=== PATIENT | male | born 1950 | race Caucasian/White ===

== ENCOUNTER 2019-08-23 01:41 | Outpatient (CLI) | payer MEDICARE, SELFPAY ==
[2019-08-23 19:16] LABS: SARS-CoV-2 RNA PCR Negative
== END 2019-08-23 01:42 | disposition home or self-care (01) ==
LOC: ANHCOVIDDT 01:43
PROVIDERS: PCP Internal Medicine; Visit Provider Internal Medicine Gastroenterology
DX: Z01.812 Encounter for preprocedural laboratory examination (principal); Z11.59 Encounter for screening for other viral diseases
CPT/HCPCS: 87635; C9803; U0003

== ENCOUNTER 2019-08-25 02:02 | Day surgery (SDC) | payer MEDICARE, SELFPAY ==
[2019-08-16 12:51] VITALS: BMI 23.9
[2019-08-25 08:52] VITALS: BP 126/55; PULSE 72; RESP 18; TEMP 36.1; O2SAT 96
[2019-08-25] MEDS: LACTATED RINGERS 1,000 ML 150 ML IV CONT (09:08)
--- NOTE | 2019-08-25 09:11 | P.CONGI_ITS ---
Assessment and Plan Assessment and plan (1) Family history of colon cancer in father: Code(s): Z80.0 - Family history of malignant neoplasm of digestive organs Status: Acute Assessment and Plan: Patient's father had colon cancer. For this reason follow-up colonoscopy advised at 5 year intervals. (2) History of colon polyps: Code(s): Z86.010 - Personal history of colonic polyps Status: Acute Assessment and Plan: Patient had colon polyps by previous colonoscopy 5 years ago in [place]. Plan is for screening colonoscopy today at 5 year intervals in the future. (3) Arteriosclerotic heart disease (ASHD): Code(s): I25.10 - Atherosclerotic heart disease of [place] coronary artery without angina pectoris Status: Acute GI Consult Note Consult date/time: 08/25/19 09:11 HPI: Jose Angel Suazo is a 69 year old male seen in evaluation at the request of Dr Parekh. Patient presents for screening colonoscopy. Patient's family history is significant that his father had colon cancer. Patient himself is had colon polyps most recently 2014 in the [facility] [place]. Patient states that his current weight appetite bowel movements are normal. He denies abdominal pain. He denies any blood in his stools. Past medical history is significant for atherosclerotic heart disease. He has a history of peripheral vascular disease on Plavix. Review of Systems Review of Systems: All systems reviewed & are unremarkable except as noted in HPI and below Meds Home Medications and Allergies Home Medications Medication Instructions Recorded Confirmed Type amlodipine 5 mg PO DAILY 08/16/19 08/25/19 History ascorbate calcium (vitamin C) 500 mg PO DAILY 08/16/19 08/25/19 History aspirin 81 mg PO DAILY 08/16/19 08/25/19 History atorvastatin 80 mg PO DAILY 08/16/19 08/25/19 History carvedilol 12.5 mg PO BID 08/16/19 08/25/19 History clopidogrel 75 mg PO DAILY 08/16/19 08/25/19 History famotidine 20 mg PO DAILY 08/16/19 08/25/19 History furosemide 20 mg PO DAILY 08/16/19 08/16/19 History losartan 25 mg PO DAILY 08/16/19 08/25/19 History ywgnkqrpwycj-xdjr-qcrai acid 1 tablet PO DAILY 08/16/19 08/25/19 History [Centrum Complete] Allergies Allergy/AdvReac Type Severity Reaction Status Date / Time No Known Allergies Allergy Verified 08/25/19 08:43 Vital Signs Vital Signs - 24 hr 08/25/19 08:52 Temperature 97.0 F L Pulse Rate 72 Respiratory Rate 18 Blood Pressure 126/55 L Pulse Oximetry 96 Exam Narrative: Exam Narrative: Physical exam reveals patient to be alert. Vital signs stable. HEENT exam unremarkable. Lungs are clear to auscultation and percussion. Heart is without murmur or extra sounds. Abdominal exam bowel so unds are present soft nontender with no organomegaly. Digital external rectal exam normal.
--- NOTE | 2019-08-25 09:35 | WPDANESEPPF ---
Anes - Initial Pre Proc Eval Procedure: Operation Date: 08/25/19 09:30 Proposed Procedures p Screening Colonoscopy - Erick Benson MD Date/Time: 08/25/19 09:35 Surgeon: Erick Benson MD Pre Op Diagnosis: HX COLON POLYPS, FAMILYL HX COLON CA Patient Data Age: 69 Gender: M Height: 6 ft Weight: 78 kg Last Vital Signs Temp 97.0 F L 08/25/19 08:52 Pulse 72 08/25/19 08:52 Resp 18 08/25/19 08:52 BP 126/55 L 08/25/19 08:52 Pulse Ox 96 08/25/19 08:52 Allergies Allergy/AdvReac Type Severity Reaction Status Date / Time No Known Allergies Allergy Verified 08/25/19 08:43 Home Medications Medication Instructions Recorded Confirmed Type amlodipine 5 mg PO DAILY 08/16/19 08/25/19 History ascorbate calcium (vitamin C) 500 mg PO DAILY 08/16/19 08/25/19 History aspirin 81 mg PO DAILY 08/16/19 08/25/19 History atorvastatin 80 mg PO DAILY 08/16/19 08/25/19 History carvedilol 12.5 mg PO BID 08/16/19 08/25/19 History clopidogrel 75 mg PO DAILY 08/16/19 08/25/19 History famotidine 20 mg PO DAILY 08/16/19 08/25/19 History furosemide 20 mg PO DAILY 08/16/19 08/16/19 History losartan 25 mg PO DAILY 08/16/19 08/25/19 History kqpdmvnleegc-gsjj-hdzyp acid 1 tablet PO DAILY 08/16/19 08/25/19 History [Centrum Complete] Patient hx anesthesia problems: none Family hx anesthesia problems: none [facility] Past Medical History Medical History (Updated 08/25/19 @ 09:38 by Chet Miller MD) Arteriosclerotic heart disease (ASHD) Congestive heart failure (CHF) GERD (gastroesophageal reflux disease) Hyperlipidemia Hypertension Anes - Eval Final PreProcedure Day of Procedure 08/25/19 09:35 Patient weight: normal Heart: regular rate and rhythm Lungs: clear to auscultation Airway: Mallampati scale class II Neurological: alert and oriented Last oral intake: >/= 8 hours ASA classification: III Emergent: no Anesthetic plan: proceed Anesthesia type and monitoring: general GIVS and standard monitoring Informed Consent: The patient's anesthetic plan and its attendant risks and benefits were discussed with the patient/family/POA. Questions were solicited and answers provided to the satisfaction of the patient/family/POA.
[2019-08-25 10:04] VITALS: BP 102/54; PULSE 70; RESP 17; O2SAT 98
[2019-08-25 10:14] VITALS: BP 115/63; PULSE 61; RESP 20; O2SAT 96
[2019-08-25 10:24] VITALS: BP 119/68; PULSE 64; RESP 22; O2SAT 99
== END 2019-08-25 10:40 | disposition home or self-care (01) ==
PROVIDERS: PCP Internal Medicine; Visit Provider Internal Medicine Gastroenterology
PROC: 0DJD8ZZ Inspection of Lower Intestinal Tract, Via Natural or Artificial Opening Endoscopic (ICD-10-PCS; CPT 45378; principal; 2019-08-25 09:30)
DX: Z12.11 Encounter for screening for malignant neoplasm of colon (principal); K57.30 Diverticulosis of large intestine without perforation or abscess without bleeding; K64.8 Other hemorrhoids; Z86.010 Personal history of colon polyps; Z80.0 Family history of malignant neoplasm of digestive organs; I25.10 Atherosclerotic heart disease of native coronary artery without angina pectoris; Z79.82 Long term (current) use of aspirin; Z79.02 Long term (current) use of antithrombotics/antiplatelets
CPT/HCPCS: G0105; J2704; J7120

== ENCOUNTER 2024-09-13 01:54 | Day surgery (SDC) | payer MEDICARE, SELFPAY ==
[2024-08-29 10:05] VITALS: BMI 25.1
--- NOTE | 2024-08-29 10:29 | PC.NURSE ---
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 Pt requested 2 day prep. I sent him Dr. Nevarez's 2 day prep.
--- NOTE | 2024-08-29 10:30 | PC.NURSE ---
Spoke with patient regarding medication Plavix. Patient verbalizes understanding that the last dose is to be taken on 09/07/24 and the Endoscopist will instruct them when to restart after the procedure.
--- OUTSIDE RECORDS SUMMARY | 2024-09-13 01:57 | XMS_ITS | Clinical Summary ---
Author Organization [facility] Address [facility] [place] [address] Care Team Providers Care Cost Coordinator Name Role Phone Bruno Parekh MD Primary Care Provider [phone] Allergies No known active allergies Medications ASPIRIN 81 OR Take 81 mg by mouth. Active vitamin C 500 MG tablet Active multivitamin tablet Active carvedilol 12.5 MG tablet Take 12.5 mg by mouth 2 (two) times daily. Active amLODIPine 2.5 MG tablet Take 5 mg by mouth daily. Active rosuvastatin 40 MG tablet Take 40 mg by mouth nightly at bedtime. Active losartan 25 MG tablet Take 25 mg by mouth daily. Active famotidine 20 MG tablet Take 20 mg by mouth daily. Active clopidogrel 75 MG tablet Take 75 mg by mouth daily. Active ciclopirox 8 % solution Apply topically nightly at bedtime. Apply over nail and surrounding skin. Apply daily over previous coat. After seven (7) days, may remove with alcohol and continue cycle. Active nitroglycerin 0.4 MG/HR Place 1 patch onto the skin daily. Active nitroglycerin 0.[address] 0.4 mg under the tongue every 5 (five) minutes as needed for Chest Pain. Active Active Problems Problem Noted Date Diagnosed Date Microhematuria 02/19/2021 Benign prostatic hyperplasia with urinary obstru ction 02/19/2021 Immunizations Immunization Administration Dates Next Due MODERNA COVID-19 (12+) MRNA, LNP-S, PF, 100 MCG/ 0.5 ML DOSE 04/30/2020,04/02/2020 Family History Medical History Relation Comments Cancer Father Pancreatic Cance r Colon Cancer Father Epilepsy Mother Relation Status Comments Father Mother Social History Tobacco Use Types Packs/Day Years Used Date Smoking Tobacco: Former Cigarettes Q uit: 05/31/2018 Smokeless Tobacco: Never Tobacco Cessation:Counseling Given: No Alcohol Use Standard Drinks/Week Comments Not Currently 3.3 (1 standard drink = 0.6 oz p ure alcohol) ocassionally PHQ-2 Answer Date Recorded PHQ-2 Score - If the patient scores above 3, please move on to questions 3-9 0 02/18/2021 Sex and Gender Information Value Date Recorded Sex Assigned at Not on file Legal Sex Male 5:39 PM CDT Gender Identity Not on file Sexual Orientation Not on file Last Filed Vital Signs Vital Sign Reading Time Taken Comments Blood Pressure 120/72 02/18/2021 10:44 AM SYNTHETIC FILAMENT EXTRUDER Pulse 74 02/18/2021 10:19 AM SYNTHETIC FILAMENT EXTRUDER Temperature 35.8 C (96.5 F) 02/18/2021 10:19 AM SYNTHETIC FILAMENT EXTRUDER Respiratory Rate - - Oxygen Saturation 98% 02/18/2021 10: 19 AM SYNTHETIC FILAMENT EXTRUDER Room Air Inhaled Oxygen Concentration - - Weight 86.5 kg (190 lb 12.8 oz) 022 10:19 AM SYNTHETIC FILAMENT EXTRUDER Height 182.9 cm (6') 02/18/2021 10:19 AM SYNTHET[employer] FILAMENT EXTRUDER Body Mass Index 25.88 02/18/2021 10:19 AM SYNTHETIC FILAMENT EXTRUDER Plan of Treatment Health Maintenance Due Date Last Done Comments Colorectal Cancer Screening Colonoscopy (10 Years) 1950 Hepatitis C 1970 Annual Medicare Wellness Visit 2017 COVID-19 Vaccine (2023-2 5 season) 2023 12/07/2020, 04/30/2020, 04/02/2020 RSV Immunization or 60+ Years (1 - 1-dose 75+ series) 2027 DTaP, Tdap and Td Vaccines ( 2 - Td or Tdap) 02/21/2028 02/20/2018 Pneumococcal Vaccine: 50+ Years Completed 08/11/2018, 08/03/2017 Zoster Vaccines Completed 12/10/2018, 08/11/2018 Meningococcal B Vaccine Aged Out No l onger eligible based on patient's age to complete this topic Meningococcal Vaccine Aged Out No jami darling eligible based on patient's age to complete this topic RSV Immunizations Under 20 Months Aged Out No longer eligible b ased on patient's age to complete this topic Procedures Procedure Name Priority Date/Time Associated Diagnosis Comments COLONOSCOPY Routine SYNTHETIC FILAMENT EXTRUDER from Last 3 Months or Most Recently Relevant to Health Maintenance Results * Colonoscopy ( SYNTHETIC FILAMENT EXTRUDER) Narrative [employer] TO EPIC CONVERSION - SYNTHETIC FILAMENT EXTRUDER Documented hx of procedure Procedure Note Akbar Whyte MD - 12/20/2017 Documented hx of procedure Generic Conversion Md WHYTE GI PROCEDURE ORDERABLES Final Result [employer] TO EPIC CONVERSION from Last 3 Months or Most Recently Relevant to Health Maintenance Insurance [employer] MEDICARE [facility] Care Teams Cost Coordinator Relationship Specialty Start Date End Date Bruno Parekh MD [address] [place] [address] [place] [id number] PCP - General INTERNAL MEDICINE 04/21/18
--- OUTSIDE RECORDS SUMMARY | 2024-09-13 01:57 | XMS_ITS | Encounter Summary ---
Author Organization [facility] Address [address] [place] [address] Care Team Providers Care Manager Psychiatry Name Role Phone Akbar Peterson MD Primary Care Provider Unavailable Bruno Parekh MD Primary Care Provider Encounter Details Date Type Department Care Team (Late st Contact Info) Description 12/20/2016 Abstract [place] [address] Akbar Peterson MD Social History Tobacco Use Types Packs/Day Years Used Date Smoking Tobacco: Never Assessed Sex and Gender Information Value Date Recorded Sex Assigned at Not on file Legal Sex Male 5:39 PM CDT Gender Identity Not on file Sexual Orientation Not on file documented as of this encounter Plan of Treatment Not on file documented as of this encounter Visit Diagnoses Not on filedocumented in this encounter Care Teams Manager Psychiatry Relationship Specialty Start Date End Date Akbar Peterson MD PCP - General 02/08/15 Bruno Parekh MD [address] [place] [address] PCP - General INTERNAL MEDICINE 04/21/18 documented as of this encounter
--- OUTSIDE RECORDS SUMMARY | 2024-09-13 01:57 | XMS_ITS | Data Portability ---
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 Cholesterol 133, triglycerides 78, HDL 53, LDL 65, glucose 104, BUN 49, creatinine 2.68, EGFR 25, sodium 142, potassium 5.1, chloride 109, carbon dioxide 19, calcium 8.7, protein 5.7, albumin 3.7, globulin 2.0, bilirubin 0.3, alkaline phosphate 76, AST 16, ALT 12, WBC 8.1, hemoglobin 10.8, hematocrit 33.0, platelets 202. Labs completed on 04/23/2023 WBC 6.8, Hgb (11.2), Platelets 200, glucose (112), BUN (50), creatinine (2.40), sodium 141, potassium 5.0, chloride (108), Co2 20, Calcium 9.1, protein 6.2, Albumin 4.1, bilirubin 0.2, ALk phos 83, AST 15, ALT 17, cholesterol 149, Trig 76, HDL 52, LDL 82 Laboratories performed on 02/23/2023 BUN 40 creatinine 2.15 previous BUN and creatinine 3 months earlier were 53 and 2.48, , sodium 141 potassium 4.5, chloride 109, bicarbonate 19, calcium 8.9, protein 5.8, albumin 3.8, bilirubin 0.3, alkaline phosphatase 93, AST 20, ALT 27. glucose 102 ECG done on 10/29/2023 shows normal sinus rhythm with a rate of 77 beats per minute with borderline first-degree AV block and poor R-wave progression. compared to previous EKG done on 06/18/2022, poor R-wave progression is now seen maybe due to change in lead positioning., ASSESSMENT Coronary artery disease with 60-70% mid right coronary artery and 60-70% left circumflex artery/obtuse marginal branch stenosis with 40-50% calcified stenosis in the proximal LAD and cardiac catheterization on 06/15/2018 with a treadmill Myoview stress test performed on 02/22/2021 with no scintigraphic evidence of ischemia or infarction with normal LVEF of 56%, exercising regularly and asymptomatic Nonsustained ventricular tachycardia when his LVEF was 30%, now with LVEF of 50-55% on his last 2 echocardiograms the 1 done in May of 2020 and again on 12/17/2020, with most recent Holter monitor done on January 22, 2021 for 48 hours showing no ventricular tachycardia and less than 1% PVC burden. Pure hypercholesterolemia on rosuvastatin 40 mg daily with LDL at goal, having some leg cramps despite being on coenzyme Q10 Hypertension - controlled Moderate to severe left ventricular systolic dysfunction with an ejection fraction of 30%, he has coronary disease but not obstructive or causing ischemia to explain his LV dysfunction, improved from 30% up to 45-50% by echocardiography done on 10/08/2018 and 50-55% by echocardiogram done on 06/05/2020 and 56% by Myoview stress test done on 02/22/2021 and 45-50% by echocardiogram done on 06/05/2020 with echocardiogram done on 2022 showing an ejection fraction 50-55%. Mild left ventricular hypertrophy by echocardiogram done on 06/05/2020 Diastolic dysfunction grade 1 by echocardiogram done on 06/05/2020 Moderate mitral regurgitation by echocardiogram done on 06/15/2018, confirmed by transesophageal echocardiogram, now improved to trace accompanied by improvement in his LVEF on echocardiogram done on 10/08/2018 and still trace on echocardiogram done on 06/05/2020 since his left ventricular systolic function has improved and his left ventricular cavity size is normalized likely normalizing the size of the mitral valve annulus causing coaptation of the valve Dyspnea occurring intermittently although he is able to walk 45 minutes without any problem with a treadmill Myoview stress test with no scintigraphic evidence of myocardial ischemia on 02/22/2021, improved with changing from losartan to entresto. Palpitations, none of late Edema resolved with reducing his amlodipine down from 5 to 2.5 mg daily and has not required p.r.n. Lasix since dropping the dose of the amlodipine 50 pack year history has been free of smoking is since just before hospitalization in May of 2018 with the assistance of Chantix now discontinued COPD, noted on chest x-ray Reformed smoker quit about 2018 has not smoked Gastroesophageal reflux disease Anemia - no longer on Epogen, anemia of chronic disease from his chronic kidney disease. Iron studies in November of 2021 were normal, managed by Dr. Salvador of the Nephrology Service Chronic kidney disease, creatinine running between 2.0 and 2.[address] Salvador of the nephrology service, Entresto approved by Nephrology MILAGRO-inhibitor cough Erectile dysfunction, no significant improvement with sildenafil or Cialis. Seen urologist who recommended an implant or a pump or injections. He decided against all of them as urologist suggested injections but he declined.. Plan- I recommend healthy diet which is low in fat, low cholesterol and low in sodium. since he is having some myalgias despite taking coenzyme Q10 on on rosuvastatin 40 mg daily asked him to reduce it to 20 mg daily to see if this improves his cramps. If his LDL becomes no longer at goal then we can consider adding Zetia later. Since he is just taking 1.25 mg or half of a 2.5 mg amlodipine tablet in his blood pressure is well-controlled I will go ahead and have him stop it I asked him to monitor his blood pressures at home and call me if there 130/85 mm Hg and if it is above that we will consider increasing his Entresto if okay with Nephrology.. I asked him to continue Entresto 24/26 mg p.o. twice daily, carvedilol 12.5 mg p.o. b.i.d., aspirin 81 mg daily, Plavix 75 mg daily, Jardiance 10 mg daily and Lasix p.r.n which he rarely requires and nitroglycerin sublingually. I asked him to return in 3 months time get a fasting lipid profile, complete metabolic profile and a CBC prior to follow-up visit I asked him to return sooner if he has any cardiac issues or problems. CARDIAC TESTING ECHOCARDIOGRAM 12/17/2022 which shows borderline LVH, normal left ventricular systolic function with ejection fraction 50-55% with normal RV cavity size and function aortic valve is mildly sclerotic but not stenotic there were normal right heart pressures and diastolic dysfunction grade 1. ECHOCARDIOGRAM 06/05/2020 which showed mild LVH, normal left ventricular systolic function with an ejection fraction of 50-55% with right atrial pressure of 10-15 mm mercury and diastolic dysfunction grade 1. 10/08/2018 which showed mildly reduced lower limits of normal LVEF of 45-50% by parasternal views apical views were foreshortened. Mild concentric left ventricular hypertrophy, trace mitral regurgitation, compared his previous echocardiogram done on 06/14/2018 LVEF have improved from an LVEF of 30% to an LVEF of 45-50% currently and moderate mitral regurgitation is improved to trace mitral regurgitation on the current study. ECHOCARDIOGRAM Performed on 06/14/2018 Moderate to severe left ventricular systolic dysfunction with an LVEF of 30%There is anteroseptal wall dyskinesis.There is septal wall severe hypokinesis.There is inferior wall severe hypokinesis.There is anterior wall moderate hypokinesis.The left ventricle is mildly dilated.There is borderline concentric left ventricular hypertrophy.The left atrium is mildly dilated.There is moderate mitral regurgitation. TREADMILL MYOVIEW STRESS TEST 02/22/2021 Positive electrocardiographic portion of treadmill Myoview stress test with [address]-segment depressions which normalized within a minute into recovery, making it suspicious for the possibility of a false-positive stress test. No chest pain or chest pressure with exercise. Good exercise tolerance, walking a total of 11 minutes 5 seconds on standard Kennedy protocol, achieving 13.4 METS of exercise, only limited by shortness of breath with exertion. Isolated PACs at rest, which were asymptomatic.. Normal blood pressure with exaggerated blood pressure response to exercise.. Normal chronotropic response to exercise.. No evidence of ischemia of the left ventricle. Small fixed basal inferior wall defect with normal wall motion most likely due to subdiaphragmatic attenuation artifact. Normal left ventricular cavity size, wall motion and calculated left ventricular systolic ejection fraction of 56%. TREADMILL MYOVIEW STRESS TEST 06/16/2018 Normal electrocardiographic portion of a treadmill Myoview stress test, patient walking 10 minutes into standard Kennedy protocol attaining 88% of his age-predicted maximal heart rate with no ischemic EKG changes. No chest pain or chest pressure with exercise. Exercise capacity was limited by shortness of breath and leg fatigue. Isolated premature ventricular contraction noted in early to mid-exercise which was asymptomatic. No other arrhythmias. Borderline elevated blood pressure, appropriate blood pressure response to exercise. Slow rise in his heart rate consistent with a person being physically fit, but it is a completely normal response to exercise for a physically fit individual as he is. No significant perfusion defects. Diaphragmatic attenuation artifact in the inferior wall improves with prone stress imaging. Abnormal left ventricular ejection fraction of 27%. Dilated left ventricle with global hypokinesis. CARDIAC CATHETERIZATION Performed on 06/15/2018 Moderate to severe distal 2-vessel coronary artery disease involving the right coronary artery and left circumflex arteries with moderate disease in the mid left anterior descending, Elevated left ventricular end-diastolic pressure at 13 mmHg. No significant gradient upon pullback across the aortic valve. LV function and wall motion were not assessed since LV angiogram was not performed in light of his creatinine of 1.9. No significant gradient upon pullback across the aortic valve, indicating any significant stenosis of the aortic valve. Normal systemic arterial blood pressure with an aortic pressure of 139/80 mmHg. Mitral regurgitation was not assessed since an LV angiogram was not performed. Not available 10/29/2023 10:58:52 02/04/2024 02/04/2024 Labs completed o n 01/26/2024 WBC 7.9, Hgb 10.6, Platelets 185, Glucose 97, BUN 50, Creatinine 2.65, eGFR 25, Sodium 143, Potassium 4.8, Chloride 109, CO2 22, Calcium 8.6, Calcium 8.6, Protien 5.9, Albumin 3.8, Bilirubin 0.3, Alkphos 81, AST 15, ALT 12, Cholesterol 145, Trig 87, HDL 46, LDL 82 LABS: 10/21/23. Cholesterol 133, triglycerides 78, HDL 53, LDL 65, glucose 104, BUN 49, creatinine 2.68, EGFR 25, sodium 142, potassium 5.1, chloride 109, carbon dioxide 19, calcium 8.7, protein 5.7, albumin 3.7, globulin 2.0, bilirubin 0.3, alkaline phosphate 76, AST 16, ALT 12, WBC 8.1, hemoglobin 10.8, hematocrit 33.0, platelets 202. Labs completed on 04/23/2023 WBC 6.8, Hgb (11.2), Platelets 200, glucose (112), BUN (50), creatinine (2.40), sodium 141, potassium 5.0, chloride (108), Co2 20, Calcium 9.1, protein 6.2, Albumin 4.1, bilirubin 0.2, ALk phos 83, AST 15, ALT 17, cholesterol 149, Trig 76, HDL 52, LDL 82 Laboratories performed on 02/23/2023 BUN 40 creatinine 2.15 previous BUN and creatinine 3 months earlier were 53 and 2.48, , sodium 141 potassium 4.5, chloride 109, bicarbonate 19, calcium 8.9, protein 5.8, albumin 3.8, bilirubin 0.3, alkaline phosphatase 93, AST 20, ALT 27. glucose 102 ECG done on 10/29/2023 shows normal sinus rhythm with a rate of 77 beats per minute with borderline first-degree AV block and poor R-wave progression. compared to previous EKG done on 06/18/2022, poor R-wave progression is now seen maybe due to change in lead positioning., ASSESSMENT Coronary artery disease with 60-70% mid right coronary artery and 60-70% left circumflex artery/obtuse marginal branch stenosis with 40-50% calcified stenosis in the proximal LAD and cardiac catheterization on 06/15/2018 with a treadmill Myoview stress test performed on 02/22/2021 with no scintigraphic evidence of ischemia or infarction with normal LVEF of 56%, exercising regularly and asymptomatic Nonsustained ventricular tachycardia when his LVEF was 30%, now with LVEF of 50-55% on his last 2 echocardiograms the 1 done in May of 2020 and again on 12/17/2020, with most recent Holter monitor done on January 22, 2021 for 48 hours showing no ventricular tachycardia and less than 1% PVC burden. Pure hypercholesterolemia on rosuvastatin 20 mg daily with LDL not at goal, was unable to tolerate rosuvastatin 40 mg daily due to myalgias we will add Zetia Hypertension - controlled Moderate to severe left ventricular systolic dysfunction with an ejection fraction of 30%, he has coronary disease but not obstructive or causing ischemia to explain his LV dysfunction, improved from 30% up to 45-50% by echocardiography done on 10/08/2018 and 50-55% by echocardiogram done on 06/05/2020 and 56% by Myoview stress test done on 02/22/2021 and 45-50% by echocardiogram done on 06/05/2020 with echocardiogram done on 12/17/2022 showing his ejection fraction has improved with a ejection fraction of 50-55%. Mild left ventricular hypertrophy by echocardiogram done on 06/05/2020 Diastolic dysfunction grade 1 by echocardiogram done on 06/05/2020 Moderate mitral regurgitation by echocardiogram done on 06/15/2018, confirmed by transesophageal echocardiogram, now improved to trace accompanied by improvement in his LVEF on echocardiogram done on 10/08/2018 and still trace on echocardiogram done on 06/05/2020 since his left ventricular systolic function has improved and his left ventricular cavity size is normalized likely normalizing the size of the mitral valve annulus causing coaptation of the valve Dyspnea occurring intermittently although he is able to walk 45 minutes without any problem with a treadmill Myoview stress test with no scintigraphic evidence of myocardial ischemia on 02/22/2021, improved with changing from losartan to entresto. Palpitations, none of late Edema resolved with reducing his amlodipine down from 5 to 2.5 mg daily and has not required p.r.n. Lasix since dropping the dose of the amlodipine 50 pack year history has been free of smoking is since just before hospitalization in May of 2018 with the assistance of Chantix now discontinued COPD, noted on chest x-ray Gastroesophageal reflux disease Anemia - no longer on Epogen, anemia of chronic disease from his chronic kidney disease. Iron studies in November of 2021 were normal, managed by Dr. Salvador of the Nephrology Service Chronic kidney disease, creatinine running between 2.0 and 2.[address] Salvador of the nephrology service, Entresto approved by Nephrology MILAGRO-inhibitor cough Erectile dysfunction, no significant improvement with sildenafil or Cialis. Seen urologist who recommended an implant or a pump or injections. He decided against all of them as urologist suggested injections but he declined.. Plan- I recommend healthy diet which is low in fat, low cholesterol and low in sodium. Since he is tolerating the rosuvastatin 20 mg daily and he had myalgias on 40 mg daily we will continue the rosuvastatin 20 mg daily and add Zetia 10 mg daily to attain a goal LDL of under 70 mg/dL in light of his history of coronary artery disease. I asked him to continue Entresto 24/26 mg p.o. twice daily, carvedilol 12.5 mg p.o. b.i.d., aspirin 81 mg daily, Plavix 75 mg daily, Jardiance 10 mg daily and Lasix p.r.n which he only use on a p.r.n. basis which was quite rare and nitroglycerin sublingually which he has not required. I asked him to return in 3 months time get a fasting lipid profile and a complete metabolic profile prior to follow-up visit I asked him to return sooner if he has any cardiac issues or problems. CARDIAC TESTING ECHOCARDIOGRAM 12/17/2022 which shows borderline LVH, normal left ventricular systolic function with ejection fraction 50-55% with normal RV cavity size and function aortic valve is mildly sclerotic but not stenotic there were normal right heart pressures and diastolic dysfunction grade 1. ECHOCARDIOGRAM 06/05/2020 which showed mild LVH, normal left ventricular systolic function with an ejection fraction of 50-55% with right atrial pressure of 10-15 mm mercury and diastolic dysfunction grade 1. 10/08/2018 which showed mildly reduced lower limits of normal LVEF of 45-50% by parasternal views apical views were foreshortened. Mild concentric left ventricular hypertrophy, trace mitral regurgitation, compared his previous echocardiogram done on 06/14/2018 LVEF have improved from an LVEF of 30% to an LVEF of 45-50% currently and moderate mitral regurgitation is improved to trace mitral regurgitation on the current study. ECHOCARDIOGRAM Performed on 06/14/2018 Moderate to severe left ventricular systolic dysfunction with an LVEF of 30%There is anteroseptal wall dyskinesis.There is septal wall severe hypokinesis.There is inferior wall severe hypokinesis.There is anterior wall moderate hypokinesis.The left ventricle is mildly dilated.There is borderline concentric left ventricular hypertrophy.The left atrium is mildly dilated.There is moderate mitral regurgitation. TREADMILL MYOVIEW STRESS TEST 02/22/2021 Positive electrocardiographic portion of treadmill Myoview stress test with [address]-segment depressions which normalized within a minute into recovery, making it suspicious for the possibility of a false-positive stress test. No chest pain or chest pressure with exercise. Good exercise tolerance, walking a total of 11 minutes 5 seconds on standard Kennedy protocol, achieving 13.4 METS of exercise, only limited by shortness of breath with exertion. Isolated PACs at rest, which were asymptomatic.. Normal blood pressure with exaggerated blood pressure response to exercise.. Normal chronotropic response to exercise.. No evidence of ischemia of the left ventricle. Small fixed basal inferior wall defect with normal wall motion most likely due to subdiaphragmatic attenuation artifact. Normal left ventricular cavity size, wall motion and calculated left ventricular systolic ejection fraction of 56%. TREADMILL MYOVIEW STRESS TEST 06/16/2018 Normal electrocardiographic portion of a treadmill Myoview stress test, patient walking 10 minutes into standard Kennedy protocol attaining 88% of his age-predicted maximal heart rate with no ischemic EKG changes. No chest pain or chest pressure with exercise. Exercise capacity was limited by shortness of breath and leg fatigue. Isolated premature ventricular contraction noted in early to mid-exercise which was asymptomatic. No other arrhythmias. Borderline elevated blood pressure, appropriate blood pressure response to exercise. Slow rise in his heart rate consistent with a person being physically fit, but it is a completely normal response to exercise for a physically fit individual as he is. No significant perfusion defects. Diaphragmatic attenuation artifact in the inferior wall improves with prone stress imaging. Abnormal left ventricular ejection fraction of 27%. Dilated left ventricle with global hypokinesis. CARDIAC CATHETERIZATION Performed on 06/15/2018 Moderate to severe distal 2-vessel coronary artery disease involving the right coronary artery and left circumflex arteries with moderate disease in the mid left anterior descending, Elevated left ventricular end-diastolic pressure at 13 mmHg. No significant gradient upon pullback across the aortic valve. LV function and wall motion were not assessed since LV angiogram was not performed in light of his creatinine of 1.9. No significant gradient upon pullback across the aortic valve, indicating any significant stenosis of the aortic valve. Normal systemic arterial blood pressure with an aortic pressure of 139/80 mmHg. Mitral regurgitation was not assessed since an LV angiogram was not performed. [email or web address] Not available 02/04/2024 09:35:15 05/11/2024 05/11/2024 Labs completed o n 05/02/2024 WBC 7.5, Hgb 11.2, Platelets 201, Glucose 97, BUN 64, Creatinine 3.10, eGFR 21, Sodium 141, Potassium 4.8, Chloride 109, Co2 21, Calcium 8.5, Protein 5.9, Albumin 3.9, Bilirubin 0.3, Alkphos 87, AST 16, ALT 14, Cholesterol 107, Trig 117, HDL 42, LDL 44 Labs completed on 01/26/2024 WBC 7.9, Hgb 10.6, Platelets 185, Glucose 97, BUN 50, Creatinine 2.65, eGFR 25, Sodium 143, Potassium 4.8, Chloride 109, CO2 22, Calcium 8.6, Calcium 8.6, Protien 5.9, Albumin 3.8, Bilirubin 0.3, Alkphos 81, AST 15, ALT 12, Cholesterol 145, Trig 87, HDL 46, LDL 82 LABS: 10/21/23. Cholesterol 133, triglycerides 78, HDL 53, LDL 65, glucose 104, BUN 49, creatinine 2.68, EGFR 25, sodium 142, potassium 5.1, chloride 109, carbon dioxide 19, calcium 8.7, protein 5.7, albumin 3.7, globulin 2.0, bilirubin 0.3, alkaline phosphate 76, AST 16, ALT 12, WBC 8.1, hemoglobin 10.8, hematocrit 33.0, platelets 202. Labs completed on 04/23/2023 WBC 6.8, Hgb (11.2), Platelets 200, glucose (112), BUN (50), creatinine (2.40), sodium 141, potassium 5.0, chloride (108), Co2 20, Calcium 9.1, protein 6.2, Albumin 4.1, bilirubin 0.2, ALk phos 83, AST 15, ALT 17, cholesterol 149, Trig 76, HDL 52, LDL 82 Laboratories performed on 02/23/2023 BUN 40 creatinine 2.15 previous BUN and creatinine 3 months earlier were 53 and 2.48, , sodium 141 potassium 4.5, chloride 109, bicarbonate 19, calcium 8.9, protein 5.8, albumin 3.8, bilirubin 0.3, alkaline phosphatase 93, AST 20, ALT 27. glucose 102 ECG done on 10/29/2023 shows normal sinus rhythm with a rate of 77 beats per minute with borderline first-degree AV block and poor R-wave progression. compared to previous EKG done on 06/18/2022, poor R-wave progression is now seen maybe due to change in lead positioning., ASSESSMENT Coronary artery disease with 60-70% mid right coronary artery and 60-70% left circumflex artery/obtuse marginal branch stenosis with 40-50% calcified stenosis in the proximal LAD and cardiac catheterization on 06/15/2018 with a treadmill Myoview stress test performed on 02/22/2021 with no scintigraphic evidence of ischemia or infarction with normal LVEF of 56%, exercising regularly and remains asymptomatic Nonsustained ventricular tachycardia when his LVEF was 30%, now with LVEF of 50-55% on his last 2 echocardiograms the 1 done in May of 2020 and again on 12/17/2020, with most recent Holter monitor done on January 22, 2021 for 48 hours showing no ventricular tachycardia and less than 1% PVC burden. Pure hypercholesterolemia on rosuvastatin 20 mg daily and Zetia with LDL at goal, was unable to tolerate rosuvastatin 40 mg daily due to myalgias we will add Zetia Hypertension -occasional low blood pressure readings after taking his morning medications. Moderate to severe left ventricular systolic dysfunction with an ejection fraction of 30%, he has coronary disease but not obstructive or causing ischemia to explain his LV dysfunction, improved from 30% up to 45-50% by echocardiography done on 10/08/2018 and 50-55% by echocardiogram done on 06/05/2020 and 56% by Myoview stress test done on 02/22/2021 and 45-50% by echocardiogram done on 06/05/2020 with echocardiogram done on 12/17/2022 showing his ejection fraction has improved with a ejection fraction of 50-55%. Mild left ventricular hypertrophy by echocardiogram done on 06/05/2020 Diastolic dysfunction grade 1 by echocardiogram done on 06/05/2020 Moderate mitral regurgitation by echocardiogram done on 06/15/2018, confirmed by transesophageal echocardiogram, now improved to trace accompanied by improvement in his LVEF on echocardiogram done on 10/08/2018 and still trace on echocardiogram since his left ventricular systolic function has improved and his left ventricular cavity size is normalized likely normalizing the size of the mitral valve annulus causing coaptation of the valve Dyspnea occurring intermittently although he is able to walk 45 minutes without any problem with a treadmill Myoview stress test with no scintigraphic evidence of myocardial ischemia on 02/22/2021, improved with changing from losartan to entresto. Palpitations, none of late Edema p.r.n. Lasix only when he travels 50 pack year history has been free of smoking is since just before hospitalization in May of 2018 with the assistance of Chantix now discontinued COPD, noted on chest x-ray Gastroesophageal reflux disease Anemia - no longer on Epogen, anemia of chronic disease from his chronic kidney disease. Iron studies in November of 2021 were normal, managed by Dr. Salvador of the Nephrology Service Chronic kidney disease, creatinine running between 2.0 and 3.[address] Salvador of the nephrology service, Entresto approved by Nephrology MILAGRO-inhibitor cough Erectile dysfunction, no significant improvement with sildenafil or Cialis. Seen urologist who recommended an implant, pump or injections. He decided against all of them as urologist suggested injections but he declined.. Plan- I recommend healthy diet which is low in fat, low cholesterol and low in sodium. I asked him to continue his regular exercise regimen. I asked him to try to lose about 10 lb. I will reduce his amlodipine from 5 down to 2.5 mg daily to see if this reduces his episodes of low blood pressure particularly after taking morning meds. I told him to keep an eye on his blood pressure and if it continues to drop after taking his morning medications to inform me and we will consider discontinuing the amlodipine altogether. For now I will continue his rosuvastatin 20 mg daily, Zetia 10 mg daily to attain a goal LDL of under 70 mg/dL in light of his history of coronary artery disease. I asked him to continue Entresto 24/26 mg p.o. twice daily, carvedilol 25 mg p.o. b.i.d., aspirin 81 mg daily, Plavix 75 mg daily, Jardiance 10 mg daily and Lasix p.r.n which he only use on a p.r.n. basis which was quite rare and nitroglycerin sublingually which he has not required. I asked him to return in 3 months time for re-evaluation. I did ask him to continue to follow up with Dr. Salvador his nursery worker. I asked him to return sooner if he has any cardiac issues or problems. CARDIAC TESTING ECHOCARDIOGRAM 12/17/2022 which shows borderline LVH, normal left ventricular systolic function with ejection fraction 50-55% with normal RV cavity size and function aortic valve is mildly sclerotic but not stenotic there were normal right heart pressures and diastolic dysfunction grade 1. ECHOCARDIOGRAM 06/05/2020 which showed mild LVH, normal left ventricular systolic function with an ejection fraction of 50-55% with right atrial pressure of 10-15 mm mercury and diastolic dysfunction grade 1. 10/08/2018 which showed mildly reduced lower limits of normal LVEF of 45-50% by parasternal views apical views were foreshortened. Mild concentric left ventricular hypertrophy, trace mitral regurgitation, compared his previous echocardiogram done on 06/14/2018 LVEF have improved from an LVEF of 30% to an LVEF of 45-50% currently and moderate mitral regurgitation is improved to trace mitral regurgitation on the current study. ECHOCARDIOGRAM Performed on 06/14/2018 Moderate to severe left ventricular systolic dysfunction with an LVEF of 30%There is anteroseptal wall dyskinesis.There is septal wall severe hypokinesis.There is inferior wall severe hypokinesis.There is anterior wall moderate hypokinesis.The left ventricle is mildly dilated.There is borderline concentric left ventricular hypertrophy.The left atrium is mildly dilated.There is moderate mitral regurgitation. TREADMILL MYOVIEW STRESS TEST 02/22/2021 Positive electrocardiographic portion of treadmill Myoview stress test with [address]-segment depressions which normalized within a minute into recovery, making it suspicious for the possibility of a false-positive stress test. No chest pain or chest pressure with exercise. Good exercise tolerance, walking a total of 11 minutes 5 seconds on standard Kennedy protocol, achieving 13.4 METS of exercise, only limited by shortness of breath with exertion. Isolated PACs at rest, which were asymptomatic.. Normal blood pressure with exaggerated blood pressure response to exercise.. Normal chronotropic response to exercise.. No evidence of ischemia of the left ventricle. Small fixed basal inferior wall defect with normal wall motion most likely due to subdiaphragmatic attenuation artifact. Normal left ventricular cavity size, wall motion and calculated left ventricular systolic ejection fraction of 56% TREADMILL MYOVIEW STRESS TEST 06/16/2018 Normal electrocardiographic portion of a treadmill Myoview stress test, patient walking 10 minutes into standard Kennedy protocol attaining 88% of his age-predicted maximal heart rate with no ischemic EKG changes. No chest pain or chest pressure with exercise. Exercise capacity was limited by shortness of breath and leg fatigue. Isolated premature ventricular contraction noted in early to mid-exercise which was asymptomatic. No other arrhythmias. Borderline elevated blood pressure, appropriate blood pressure response to exercise. Slow rise in his heart rate consistent with a person being physically fit, but it is a completely normal response to exercise for a physically fit individual as he is. No significant perfusion defects. Diaphragmatic attenuation artifact in the inferior wall improves with prone stress imaging. Abnormal left ventricular ejection fraction of 27%. Dilated left ventricle with global hypokinesis. CARDIAC CATHETERIZATION Performed on 06/15/2018 Moderate to severe distal 2-vessel coronary artery disease involving the right coronary artery and left circumflex arteries with moderate disease in the mid left anterior descending, Elevated left ventricular end-diastolic pressure at 13 mmHg. No significant gradient upon pullback across the aortic valve. LV function and wall motion were not assessed since LV angiogram was not performed in light of his creatinine of 1.9. No significant gradient upon pullback across the aortic valve, indicating any significant stenosis of the aortic valve. Normal systemic arterial blood pressure with an aortic pressure of 139/80 mmHg. Mitral regurgitation was not assessed since an LV angiogram was not performed. Not available 05/11/2024 09:36:43 08/02/2024 08/02/2024 Labs completed o n 05/02/2024 WBC 7.5, Hgb 11.2, Platelets 201, Glucose 97, BUN 64, Creatinine 3.10, eGFR 21, Sodium 141, Potassium 4.8, Chloride 109, Co2 21, Calcium 8.5, Protein 5.9, Albumin 3.9, Bilirubin 0.3, Alkphos 87, AST 16, ALT 14, Cholesterol 107, Trig 117, HDL 42, LDL 44 Labs completed on 01/26/2024 WBC 7.9, Hgb 10.6, Platelets 185, Glucose 97, BUN 50, Creatinine 2.65, eGFR 25, Sodium 143, Potassium 4.8, Chloride 109, CO2 22, Calcium 8.6, Calcium 8.6, Protien 5.9, Albumin 3.8, Bilirubin 0.3, Alkphos 81, AST 15, ALT 12, Cholesterol 145, Trig 87, HDL 46, LDL 82 LABS: 10/21/23. Cholesterol 133, triglycerides 78, HDL 53, LDL 65, glucose 104, BUN 49, creatinine 2.68, EGFR 25, sodium 142, potassium 5.1, chloride 109, carbon dioxide 19, calcium 8.7, protein 5.7, albumin 3.7, globulin 2.0, bilirubin 0.3, alkaline phosphate 76, AST 16, ALT 12, WBC 8.1, hemoglobin 10.8, hematocrit 33.0, platelets 202. ECG done on 10/29/2023 shows normal sinus rhythm with a rate of 77 beats per minute with borderline first-degree AV block and poor R-wave progression. compared to previous EKG done on 06/18/2022, poor R-wave progression is now seen maybe due to change in lead positioning., ASSESSMENT Coronary artery disease with 60-70% mid right coronary artery and 60-70% left circumflex artery/obtuse marginal branch stenosis with 40-50% calcified stenosis in the proximal LAD and cardiac catheterization on 06/15/2018 with a treadmill Myoview stress test performed on 02/22/2021 with no scintigraphic evidence of ischemia or infarction with normal LVEF of 56%, exercising regularly and remains asymptomatic Nonsustained ventricular tachycardia when his LVEF was 30%, now with LVEF of 50-55% on his last 3 echocardiograms the one done in May of 2020, 12/17/2020 and 12/17/2022, with most recent Holter monitor done on January 22, 2021 for 48 hours showing no ventricular tachycardia and less than 1% PVC burden. Pure hypercholesterolemia on rosuvastatin 20 mg daily and Zetia with LDL at goal, was unable to tolerate rosuvastatin 40 mg daily due to myalgias we will add Zetia Postural dizziness likely due to lower blood pressure readings with 1 episode of syncope Hypertension -currently controlled but episodes of low blood pressure readings at home Moderate to severe left ventricular systolic dysfunction with an ejection fraction of 30%, he has coronary disease but not obstructive or causing ischemia to explain his LV dysfunction, improved from 30% up to 45-50% by echocardiography done on 10/08/2018 and 50-55% by echocardiogram done on 06/05/2020 and 56% by Myoview stress test done on 02/22/2021 and 45-50% by echocardiogram done on 06/05/2020 with echocardiogram done on 12/17/2022 showing his ejection fraction has improved with a ejection fraction of 50-55%. Mild left ventricular hypertrophy by echocardiogram done on 06/05/2020 Diastolic dysfunction grade 1 by echocardiogram done on 06/05/2020 Moderate mitral regurgitation by echocardiogram done on 06/15/2018, confirmed by transesophageal echocardiogram, now improved to trace accompanied by improvement in his LVEF on echocardiogram done on 10/08/2018 and still trace on echocardiogram since his left ventricular systolic function has improved and his left ventricular cavity size is normalized likely normalizing the size of the mitral valve annulus causing coaptation of the valve Dyspnea occurring intermittently although he is able to walk 45 minutes without any problem with a treadmill Myoview stress test with no scintigraphic evidence of myocardial ischemia on 02/22/2021, improved with changing from losartan to entresto. Palpitations, none of late Edema p.r.n. Lasix only when he travels 50 pack year history has been free of smoking is since just before hospitalization in May of 2018 with the assistance of Chantix now discontinued COPD, noted on chest x-ray Gastroesophageal reflux disease Anemia - no longer on Epogen, anemia of chronic disease from his chronic kidney disease. Iron studies in November of 2021 were normal, managed by Dr. Salvador of the Nephrology Service Chronic kidney disease, creatinine running between 2.0 and 3.[address] Salvador of the nephrology service, Entresto approved by Nephrology MILAGRO-inhibitor cough Erectile dysfunction, no significant improvement with sildenafil or Cialis. Seen urologist who recommended an implant, pump or injections. He decided against all of them as urologist suggested injections but he declined.. Plan- I recommend healthy diet which is low in fat, low cholesterol and low in sodium. I asked him to discontinue his 2.5 mg amlodipine daily. I did inform him of the while and then he can not drive for 6 months after syncope. I will obtain a 2D echo Doppler re-evaluate his LV function. I will have him wear fourteen day Holter monitor to evaluate for arrhythmic causes. I asked him to continue his regular exercise regimen. I asked him to continue on rosuvastatin 20 mg daily, Zetia 10 mg daily, Entresto 24/26 mg p.o. twice daily, carvedilol 25 mg p.o. b.i.d., aspirin 81 mg daily, Plavix 75 mg daily, Jardiance 10 mg daily and Lasix p.r.n which he only use on a p.r.n. basis and nitroglycerin sublingually which he has not required. I asked him to return in 6 weeks' time for re-evaluation.. I did ask him to continue to follow up with Dr. Salvador his nursery worker. He was hoping to have a colonoscopy done in late August told him to hold off until we do the above workup. I asked him to continue to monitor his blood pressures 3 times a day. I asked him to return sooner if he has any cardiac issues or problems. CARDIAC TESTING ECHOCARDIOGRAM 12/17/2022 which shows borderline LVH, normal left ventricular systolic function with ejection fraction 50-55% with normal RV cavity size and function aortic valve is mildly sclerotic but not stenotic there were normal right heart pressures and diastolic dysfunction grade 1. ECHOCARDIOGRAM 06/05/2020 which showed mild LVH, normal left ventricular systolic function with an ejection fraction of 50-55% with right atrial pressure of 10-15 mm mercury and diastolic dysfunction grade 1. 10/08/2018 which showed mildly reduced lower limits of normal LVEF of 45-50% by parasternal views apical views were foreshortened. Mild concentric left ventricular hypertrophy, trace mitral regurgitation, compared his previous echocardiogram done on 06/14/2018 LVEF have improved from an LVEF of 30% to an LVEF of 45-50% currently and moderate mitral regurgitation is improved to trace mitral regurgitation on the current study. ECHOCARDIOGRAM 06/14/2018 Moderate to severe left ventricular systolic dysfunction with an LVEF of 30%There is anteroseptal wall dyskinesis.There is septal wall severe hypokinesis.There is inferior wall severe hypokinesis.There is anterior wall moderate hypokinesis.The left ventricle is mildly dilated.There is borderline concentric left ventricular hypertrophy.The left atrium is mildly dilated.There is moderate mitral regurgitation. TREADMILL MYOVIEW STRESS TEST 02/22/2021 Positive electrocardiographic portion of treadmill Myoview stress test with [address]-segment depressions which normalized within a minute into recovery, making it suspicious for the possibility of a false-positive stress test. No chest pain or chest pressure with exercise. Good exercise tolerance, walking a total of 11 minutes 5 seconds on standard Kennedy protocol, achieving 13.4 METS of exercise, only limited by shortness of breath with exertion. Isolated PACs at rest, which were asymptomatic.. Normal blood pressure with exaggerated blood pressure response to exercise.. Normal chronotropic response to exercise.. No evidence of ischemia of the left ventricle. Small fixed basal inferior wall defect with normal wall motion most likely due to subdiaphragmatic attenuation artifact. Normal left ventricular cavity size, wall motion and calculated left ventricular systolic ejection fraction of 56% TREADMILL MYOVIEW STRESS TEST 06/16/2018 Normal electrocardiographic portion of a treadmill Myoview stress test, patient walking 10 minutes into standard Kennedy protocol attaining 88% of his age-predicted maximal heart rate with no ischemic EKG changes. No chest pain or chest pressure with exercise. Exercise capacity was limited by shortness of breath and leg fatigue. Isolated premature ventricular contraction noted in early to mid-exercise which was asymptomatic. No other arrhythmias. Borderline elevated blood pressure, appropriate blood pressure response to exercise. Slow rise in his heart rate consistent with a person being physically fit, but it is a completely normal response to exercise for a physically fit individual as he is. No significant perfusion defects. Diaphragmatic attenuation artifact in the inferior wall improves with prone stress imaging. Abnormal left ventricular ejection fraction of 27%. Dilated left ventricle with global hypokinesis. CARDIAC CATHETERIZATION Performed on 06/15/2018 Moderate to severe distal 2-vessel coronary artery disease involving the right coronary artery and left circumflex arteries with moderate disease in the mid left anterior descending, Elevated left ventricular end-diastolic pressure at 13 mmHg. No significant gradient upon pullback across the aortic valve. LV function and wall motion were not assessed since LV angiogram was not performed in light of his creatinine of 1.9. No significant gradient upon pullback across the aortic valve, indicating any significant stenosis of the aortic valve. Normal systemic arterial blood pressure with an aortic pressure of 139/80 mmHg. Mitral regurgitation was not assessed since an LV angiogram was not performed. Not available 08/02/2024 09:47:33 09/09/2024 09/09/2024 Labs completed o n 05/02/2024 WBC 7.5, Hgb 11.2, Platelets 201, Glucose 97, BUN 64, Creatinine 3.10, eGFR 21, Sodium 141, Potassium 4.8, Chloride 109, Co2 21, Calcium 8.5, Protein 5.9, Albumin 3.9, Bilirubin 0.3, Alkphos 87, AST 16, ALT 14, Cholesterol 107, Trig 117, HDL 42, LDL 44 Labs completed on 01/26/2024 WBC 7.9, Hgb 10.6, Platelets 185, Glucose 97, BUN 50, Creatinine 2.65, eGFR 25, Sodium 143, Potassium 4.8, Chloride 109, CO2 22, Calcium 8.6, Calcium 8.6, Protien 5.9, Albumin 3.8, Bilirubin 0.3, Alkphos 81, AST 15, ALT 12, Cholesterol 145, Trig 87, HDL 46, LDL 82 LABS: 10/21/23. Cholesterol 133, triglycerides 78, HDL 53, LDL 65, glucose 104, BUN 49, creatinine 2.68, EGFR 25, sodium 142, potassium 5.1, chloride 109, carbon dioxide 19, calcium 8.7, protein 5.7, albumin 3.7, globulin 2.0, bilirubin 0.3, alkaline phosphate 76, AST 16, ALT 12, WBC 8.1, hemoglobin 10.8, hematocrit 33.0, platelets 202. ECG done on 10/29/2023 shows normal sinus rhythm with a rate of 77 beats per minute with borderline first-degree AV block and poor R-wave progression. compared to previous EKG done on 06/18/2022, poor R-wave progression is now seen maybe due to change in lead positioning., ASSESSMENT Coronary artery disease with 60-70% mid right coronary artery and 60-70% left circumflex artery/obtuse marginal branch stenosis with 40-50% calcified stenosis in the proximal LAD and cardiac catheterization on 06/15/2018 with a treadmill Myoview stress test performed on 02/22/2021 with no scintigraphic evidence of ischemia or infarction with normal LVEF of 56%, exercising regularly and remains asymptomatic Nonsustained ventricular tachycardia when his LVEF was 30%, now with LVEF of 50-55% on his last 2 echocardiograms the 1 done in May of 2020 and again on 12/17/2020, with most recent Holter monitor done on January 22, 2021 for 48 hours showing no ventricular tachycardia and less than 1% PVC burden On his most recent 14 day Holter monitor done on 08/02/2024 he just had 2 episodes of ventricular tachycardia the fastest being a 3 beat run at a rate of 192 beats per minute longest being a 15 beat run at a rate of 127 beats per minute which were asymptomatic. There was a 1% PVC burden, now with normal LV function and no ischemia, low risk for sudden cardiac , continue his beta charlie with carvedilol. Paroxysmal supraventricular tachycardia with a 14 day Holter monitor performed on 08/02/2024 showing 12 episodes of supraventricular tachycardia the fastest being a 4-beat run at a rate of 123 beats per minute and the longest being a 12-beat run at a rate of 104 beats per minute which were asymptomatic. Pure hypercholesterolemia on rosuvastatin 20 mg daily and Zetia with LDL at goal, was unable to tolerate rosuvastatin 40 mg daily due to myalgias , LDL was not at goal prior to adding Zetia now LDL well within goal Hypertension - Had had low blood pressures in the morning and afternoon and normal blood pressures in the afternoon with amlodipine as low as 2.5 mg daily but this resulted in dizzy spells. Now off the amlodipine his morning and afternoon blood pressures are normal but his evening blood pressures are elevated. Moderate to severe left ventricular systolic dysfunction with an ejection fraction of 30%, he has coronary disease but not obstructive or causing ischemia to explain his LV dysfunction, improved from 30% up to 45-50% by echocardiography done on 10/08/2018 and 50-55% by echocardiogram done on 06/05/2020 and 56% by Myoview stress test done on 02/22/2021 and 45-50% by echocardiogram done on 06/05/2020 with echocardiogram done on 12/17/2022 showing his ejection fraction has improved with a ejection fraction of 50-55% and now improved up to 55 to 60% ejection fraction his most recent echocardiogram done on 08/30/2024. Moderate mitral regurgitation by echocardiogram done on 06/15/2018, confirmed by transesophageal echocardiogram, now improved to trace accompanied by improvement in his LVEF on echocardiogram done on 10/08/2018 and still trace on echocardiogram since his left ventricular systolic function has improved and his left ventricular cavity size is normalized likely normalizing the size of the mitral valve annulus causing coaptation of the valve Dyspnea occurring intermittently although he is able to walk 45 minutes without any problem with a treadmill Myoview stress test with no scintigraphic evidence of myocardial ischemia on 02/22/2021, improved with changing from losartan to entresto. Palpitations, none of late Edema p.r.n. Lasix only when he travels 50 pack year history has been free of smoking is since just before hospitalization in May of 2018 with the assistance of Chantix now discontinued COPD, noted on chest x-ray Gastroesophageal reflux disease Anemia - no longer on Epogen, anemia of chronic disease from his chronic kidney disease. Iron studies in November of 2021 were normal, managed by Dr. Salvador of the Nephrology Service Chronic kidney disease, creatinine running between 2.0 and 3.[address] Salvador of the nephrology service, Entresto approved by Nephrology MIL[facility]RO-inhibitor cough Erectile dysfunction, no significant improvement with sildenafil or Cialis. Seen urologist who recommended an implant, pump or injections. He decided against all of them as urologist suggested injections but he declined.. Plan- I recommend healthy diet which is low in fat, low cholesterol and low in sodium. I asked him to continue his regular exercise regimen. Since his morning and afternoon blood pressures are normal and his evening blood pressures are elevated I will give him a short-acting agent I will give him hydralazine and have him take 25 mg at dinnertime each day. We will see if that is enough or if we have to increase the dose later but I will have him call me some morning afternoon and evening blood pressures in the next 2 weeks and we will make changes based on these readings. I asked him to continue on rosuvastatin 20 mg daily, Zetia 10 mg daily, Entresto 24/26 mg p.o. twice daily, carvedilol 25 mg p.o. b.i.d., aspirin 81 mg daily, Plavix 75 mg daily, Jardiance 10 mg daily and Lasix p.r.n which he only use on a p.r.n. basis which was quite rare and nitroglycerin sublingually which he has not required. he is scheduled to have a colonoscopy done on September 13. I asked him to hold his Plavix now because in 4 days but I asked him to continue on the aspirin uninterrupted. He has no cardiac contraindication to the procedure.I asked him to return in 6 weeks' time and obtain a fasting lipid profile, complete metabolic profile and a CBC prior to his follow-up visit. I asked him to continue to follow up with his nursery worker Dr. Salvador.. I asked him to return sooner if he has any cardiac issues or problems. CARDIAC TESTING ECHOCARDIOGRAM 08/30/2024 Normal left ventricular size, wall thickness and systolic function. LV ejection fraction visually 55-60%. Left ventricular diastolic parameters are consistent with Grade 1 diastolic dysfunction. Total wall motion score is 1.00. There are no regional wall motion abnormalities. Aortic cusps appear mildly calcified. There is no evidence of aortic valve stenosis. Trace/physiologic tricuspid regurgitation. Unable to calculate RVSP due to insufficient tricuspid regurgitant jet. The aortic root is normal in size. The ascending aorta is normal in size. The IVC was <2.1 cm and collapsibility >50%. The RA pressure is estimated to be 3 mmHg. ECHOCARDIOGRAM 12/17/2022 which shows borderline LVH, normal left ventricular systolic function with ejection fraction 50-55% with normal RV cavity size and function aortic valve is mildly sclerotic but not stenotic there were normal right heart pressures and diastolic dysfunction grade 1. ECHOCARDIOGRAM 06/05/2020 which showed mild LVH, normal left ventricular systolic function with an ejection fraction of 50-55% with right atrial pressure of 10-15 mm mercury and diastolic dysfunction grade 1. 10/08/2018 which showed mildly reduced lower limits of normal LVEF of 45-50% by parasternal views apical views were foreshortened. Mild concentric left ventricular hypertrophy, trace mitral regurgitation, compared his previous echocardiogram done on 06/14/2018 LVEF have improved from an LVEF of 30% to an LVEF of 45-50% currently and moderate mitral regurgitation is improved to trace mitral regurgitation on the current study. TREADMILL MYOVIEW STRESS TEST 02/22/2021 Positive electrocardiographic portion of treadmill Myoview stress test with [address]-segment depressions which normalized within a minute into recovery, making it suspicious for the possibility of a false-positive stress test. No chest pain or chest pressure with exercise. Good exercise tolerance, walking a total of 11 minutes 5 seconds on standard Kennedy protocol, achieving 13.4 METS of exercise, only limited by shortness of breath with exertion. Isolated PACs at rest, which were asymptomatic.. Normal blood pressure with exaggerated blood pressure response to exercise.. Normal chronotropic response to exercise.. No evidence of ischemia of the left ventricle. Small fixed basal inferior wall defect with normal wall motion most likely due to subdiaphragmatic attenuation artifact. Normal left ventricular cavity size, wall motion and calculated left ventricular systolic ejection fraction of 56% TREADMILL MYOVIEW STRESS TEST 06/16/2018 Normal electrocardiographic portion of a treadmill Myoview stress test, patient walking 10 minutes into standard Kennedy protocol attaining 88% of his age-predicted maximal heart rate with no ischemic EKG changes. No chest pain or chest pressure with exercise. Exercise capacity was limited by shortness of breath and leg fatigue. Isolated premature ventricular contraction noted in early to mid-exercise which was asymptomatic. No other arrhythmias. Borderline elevated blood pressure, appropriate blood pressure response to exercise. Slow rise in his heart rate consistent with a person being physically fit, but it is a completely normal response to exercise for a physically fit individual as he is. No significant perfusion defects. Diaphragmatic attenuation artifact in the inferior wall improves with prone stress imaging. Abnormal left ventricular ejection fraction of 27%. Dilated left ventricle with global hypokinesis. CARDIAC CATHETERIZATION Performed on 06/15/2018 Moderate to severe distal 2-vessel coronary artery disease involving the right coronary artery and left circumflex arteries with moderate disease in the mid left anterior descending, Elevated left ventricular end-diastolic pressure at 13 mmHg. No significant gradient upon pullback across the aortic valve. LV function and wall motion were not assessed since LV angiogram was not performed in light of his creatinine of 1.9. No significant gradient upon pullback across the aortic valve, indicating any significant stenosis of the aortic valve. Normal systemic arterial blood pressure with an aortic pressure of 139/80 mmHg. Mitral regurgitation was not assessed since an LV angiogram was not performed. HOLTER MONITOR 08/02/24 to 08/16/24 Underlying rhythm was sinus rhythm with sinus rates ranging between 51 and 126 beats per minute with an average heart rate of 72 beats per minute. There was a 1.4% burden of tachycardia and 7.6% burden of bradycardia. There was a less than 1% Pac burden less than 1% PVC burden which were asymptomatic. There were 2 episodes of ventricular tachycardia with the fastest being a 3-beat run at a rate of 192 beats per minute and the longest being a 15-beat run at a rate of 127 beats per minute which were asymptomatic. There were 12 episodes of supraventricular tachycardia the fastest being a 4-beat run at a rate of 123 beats per minute and the longest being a 12-beat run at a rate of 104 beats per minute which were asymptomatic. There were 13 patient triggered events with complaints of feeling tired and fatigued associated with sinus rhythm with rates between 77 and 98 beats per minute without any arrhythmias. There was no atrial fibrillation/flutter, no significant pauses no high-grade AV block. Not available 09/09/2024 09:36:58 Plan of Treatment Reminders Order Date Submit Date Provider Last Modified By Organization Details Last Modified Time Details Appointments ANY 15 2024 08:45A Gio Pompa MD Not available Not available Not available Lab lipid panel, serum 2024 025 [facility], [address] [facility], [address], [place], [address], 09/09/2024 09:35:16 CBC w/ auto diff 2024 025 [facility], [address], [address], [place], [address], 09/09/2024 09:35:16 CMP, serum or plasma 2024 025 [facility], [address], [address], [place], [address], 09/09/2024 09:35:16 CMP, serum or plasma 2023 025 [email or web address] [facility], [address], [address], [place], [address], 05/10/2024 07:42:17 lipid panel, serum 2023 025 [email or web address] [facility], [address], [address], [place], [address], 05/10/2024 07:42:17 CBC w/ auto diff 2023 024 [email or web address] [facility], [address], [address], [place], [address], 02/18/2024 07:44:35 lipid panel, serum 2023 024 [email or web address] [facility], [address], [address], [place], [address], 02/03/2024 07:31:54 CMP, serum or plasma 2023 024 [email or web address] [facility], [address], [address], [place], [address], 02/03/2024 07:31:54 Referral None record ed. Procedures None record ed. Surgeries None record ed. Imaging US, echoca rdiogr am, transt horaci c, comple te, w/ color flow 2024 025 [facility], [address], [address], [place], [address], 08/16/2024 08:13:13 electr ocardi ogram 2023 024 [email or web address] In-[facility] Order, Internal Use Only DO Not Attach Compendium DO Not Attach Compendium, Do Not Delete/merge, [id number] 11/02/2023 08:35:50 Medication Orders rosuva statin 20 mg tablet 2024 025 [facility], [address] [place] [address], [id number], 09/09/2024 09:35:18 hydral azine 25 mg tablet 2024 025 [facility], [address] [place] [address], [id number], 09/09/2024 09:35:20 hydral azine 25 mg tablet 2024 025 [id number], [address] [place] [address], [id number], 09/09/2024 09:35:24 carved ilol 25 mg tablet 2024 025 [facility], [address] [place] [address], [id number], 08/02/2024 09:47:10 amlodi pine 2.5 mg tablet 2024 025 [facility], [address] [place] [address], [address], 08/02/2024 09:47:24 clopid ogrel 75 mg tablet 2023 024 [facility], [address] [place] [address], [address], 02/04/2024 09:35:49 carved ilol 25 mg tablet 2023 024 [facility], [address] [place] [address], [address], 02/04/2024 09:35:50 ezetim michelle 10 mg tablet 2023 024 [facility], [address] [place] [address], [address], 02/04/2024 09:36:04 amlodi pine 2.5 mg tablet 2023 024 [facility], [address] [place] [address], [address], 08/02/2024 09:47:17 rosuva statin 20 mg tablet 2023 024 [id number], [address], [place], [id number], 10/29/2023 10:58:37 Patient TargetsNo targets recorded. Patient Instructions Encounter Date Encounter Id Patient Instructions Last Modified By Organization Details Last Modified Time 05/11/2024 [id number] A healthy lifestyle: care instructions Not available 05/11/2024 09:35:20 08/02/2024 [id number] A healthy lifestyle: care instructions Not available 08/02/2024 09:47:08 09/09/2024 [id number] A healthy lifestyle: care instructions Not available 09/09/2024 09:35:16 Reason for Referral None Reported. Results Created Date Observation Date Name Description Value Unit Range Abnormal Flag Note LastModifiedBy Organization Detail LastModifiedTime 10/21/19 24 10/22/2023 LIPID PANEL cholesterol, total 133 mg/dL 100-19 9 Not Available [facility] ([facility]) [address], [place], [address], 10/22/2023 03:36:43 10/21/19 24 10/22/2023 LIPID PANEL triglyceride s 78 mg/dL 0-149 Not Available [facility] ([facility]) [address] [place], [address], 10/22/2023 03:36:43 10/21/19 24 10/22/2023 LIPID PANEL HDL cholesterol 53 mg/dL >39 Not Available [facility] ([facility]) [address] [place], [address], 10/22/2023 03:36:43 10/21/19 24 10/22/2023 LIPID PANEL VLDL cholesterol lawrence 15 mg/dL 5-40 Not Available [facility] ([facility]) [address] [place], [address], 10/22/2023 03:36:43 10/21/19 24 10/22/2023 LIPID PANEL LDL chol calc ([facility]) 65 mg/dL 0-99 Not Available [facility] ([facility]) [address] [place], [address], 10/22/2023 03:36:43 10/21/19 24 10/22/2023 COMP. METAB OLIC PANEL (14) glucose 104 mg/dL 70-99 above high normal Not Available [facility] ([facility]) [address] [place], [address], 10/22/2023 03:36:43 10/21/19 24 10/22/2023 COMP. METAB OLIC PANEL (14) BUN 49 mg/dL 8-27 above high normal Not Available [facility] ([facility]) [address] [place], [address], 10/22/2023 03:36:43 10/21/19 24 10/22/2023 COMP. METAB OLIC PANEL (14) creatinine 2.68 mg/dL 0.76-1 .27 above high normal Not Available [facility] ([facility]) [address] [place], [address], 10/22/2023 03:36:43 10/21/19 24 10/22/2023 COMP. METAB OLIC PANEL (14) eGFR 25 mL/mi n/1.7 3 >59 below low normal Not Available [facility] ([facility]) [address], [place], [address], 10/22/2023 03:36:43 10/21/19 24 10/22/2023 COMP. METAB OLIC PANEL (14) BUN/creatini ne ratio 18 10-24 Not Available [facility] ([facility]) [address], [place], [address], 10/22/2023 03:36:43 10/21/19 24 10/22/2023 COMP. METAB OLIC PANEL (14) sodium 142 mmol/ L 134-14 4 Not Available [facility] ([facility]) [address], [place], [address], 10/22/2023 03:36:43 10/21/19 24 10/22/2023 COMP. METAB OLIC PANEL (14) potassium 5.1 mmol/ L 3.5-5. 2 Not Available [facility] ([facility]) [address], [place], [address], 10/22/2023 03:36:43 10/21/19 24 10/22/2023 COMP. METAB OLIC PANEL (14) chloride 109 mmol/ L 96-106 above high normal Not Available [facility] ([facility]) [address], [place], [address], 10/22/2023 03:36:43 10/21/19 24 10/22/2023 COMP. METAB OLIC PANEL (14) carbon dioxide, total 19 mmol/ L 20-29 below low normal Not Available [facility] ([facility]) [address], [place], [address], 10/22/2023 03:36:43 10/21/19 24 10/22/2023 COMP. METAB OLIC PANEL (14) calcium 8.7 mg/dL 8.6-10 .2 Not Available [facility] ([facility]) [address] [place], [address], 10/22/2023 03:36:43 10/21/19 24 10/22/2023 COMP. METAB OLIC PANEL (14) protein, total 5.7 g/dL 6.0-8. 5 below low normal Not Available [facility] ([facility]) [address] [place], [address], 10/22/2023 03:36:43 10/21/19 24 10/22/2023 COMP. METAB OLIC PANEL (14) albumin 3.7 g/dL 3.8-4. 8 below low normal Not Available [facility] ([facility]) [address] [place], [address], 10/22/2023 03:36:43 10/21/19 24 10/22/2023 COMP. METAB OLIC PANEL (14) globulin, total 2.0 g/dL 1.5-4. 5 Not Available [facility] ([facility]) [address] [place], [address], 10/22/2023 03:36:43 10/21/19 24 10/22/2023 COMP. METAB OLIC PANEL (14) bilirubin, total 0.3 mg/dL 0.0-1. 2 Not Available [facility] ([facility]) [address] [place], [address], 10/22/2023 03:36:43 10/21/19 24 10/22/2023 COMP. METAB OLIC PANEL (14) alkaline phosphatase 76 IU/L 44-121 Not Available [facility] ([facility]) [address] [place], [address], 10/22/2023 03:36:43 10/21/19 24 10/22/2023 COMP. METAB OLIC PANEL (14) AST (SGOT) 16 IU/L 0-40 Not Available [facility] ([facility]) [address] [facility] [place], [address], 10/22/2023 03:36:43 10/21/19 24 10/22/2023 COMP. METAB OLIC PANEL (14) ALT (SGPT) 12 IU/L 0-44 Not Available [facility] ([facility]) [address] [facility] [place], [address], 10/22/2023 03:36:43 10/21/19 24 10/21/2023 CBC WITH DIFFE RENTI AL/PL ATELE T WBC 8.1 x10e3 /uL 3.4-10 .8 Not Available [facility] ([facility]) [address] [facility] [place], [address], 10/22/2023 03:36:44 10/21/19 24 10/21/2023 CBC WITH DIFFE RENTI AL/PL ATELE T RBC 3.46 x10e6 /uL 4.14-5 .80 below low normal Not Available [facility] ([facility]) [address] [facility] [place], [address], 10/22/2023 03:36:44 10/21/19 24 10/21/2023 CBC WITH DIFFE RENTI AL/PL ATELE T hemoglobin 10.8 g/dL 13.0-1 7.7 below low normal Not Available [facility] ([facility]) [address] [facility] [place], [address], 10/22/2023 03:36:44 10/21/19 24 10/21/2023 CBC WITH DIFFE RENTI AL/PL ATELE T hematocrit 33.0 % 37.5-5 1.0 below low normal Not Available [facility] ([facility]) [address] [facility] [place], [address], 10/22/2023 03:36:44 10/21/19 24 10/21/2023 CBC WITH DIFFE RENTI AL/PL ATELE T MCV 95 fL 79-97 Not Available [facility] ([facility]) [address] [facility] [address], [place], [address], 10/22/2023 03:36:44 10/21/19 24 10/21/2023 CBC WITH DIFFE RENTI AL/PL ATELE T MCH 31.2 pg 26.6-3 3.0 Not Available [facility] ([facility]) [address] [facility] [address], [place], [address], 10/22/2023 03:36:44 10/21/19 24 10/21/2023 CBC WITH DIFFE RENTI AL/PL ATELE T MCHC 32.7 g/dL 31.5-3 5.7 Not Available [facility] ([facility]) [address] [facility] [address], [place], [address], 10/22/2023 03:36:44 10/21/19 24 10/21/2023 CBC WITH DIFFE RENTI AL/PL ATELE T RDW 12.7 % 11.6-1 5.4 Not Available [facility] ([facility]) [address] [facility] [address], [place], [address], 10/22/2023 03:36:44 10/21/19 24 10/21/2023 CBC WITH DIFFE RENTI AL/PL ATELE T platelets 202 x10e3 /uL 150-45 0 Not Available [facility] ([facility]) [address] [facility] [address], [place], [address], 10/22/2023 03:36:44 10/21/19 24 10/21/2023 CBC WITH DIFFE RENTI AL/PL ATELE T neutrophils 77 % notest ab. Not Available [facility] ([facility]) [address] [facility] [address], [place], [address], 10/22/2023 03:36:44 10/21/19 24 10/21/2023 CBC WITH DIFFE RENTI AL/PL ATELE T lymphs 10 % notest ab. Not Available [facility] ([facility]) [address] [facility] [address], [place], [address], 10/22/2023 03:36:44 10/21/19 24 10/21/2023 CBC WITH DIFFE RENTI AL/PL ATELE T monocytes 8 % notest ab. Not Available [facility] ([facility]) [address] [facility] [address], [place], [address], 10/22/2023 03:36:44 10/21/19 24 10/21/2023 CBC WITH DIFFE RENTI AL/PL ATELE T eos 4 % notest ab. Not Available [facility] ([facility]) [address] [facility] [address], [place], [address], 10/22/2023 03:36:44 10/21/19 24 10/21/2023 CBC WITH DIFFE RENTI AL/PL ATELE T basos 1 % notest ab. Not Available [facility] ([facility]) [address] [facility] [address], [place], [address], 10/22/2023 03:36:44 10/21/19 24 10/21/2023 CBC WITH DIFFE RENTI AL/PL ATELE T neutrophils (absolute) 6.2 x10e3 /uL 1.4-7. 0 Not Available [facility] ([facility]) [address] [place], [address], 10/22/2023 03:36:44 10/21/19 24 10/21/2023 CBC WITH DIFFE RENTI AL/PL ATELE T lymphs (absolute) 0.8 x10e3 /uL 0.7-3. 1 Not Available [facility] ([facility]) [address] [facility] [address], [place], [address], 10/22/2023 03:36:44 10/21/19 24 10/21/2023 CBC WITH DIFFE RENTI AL/PL ATELE T monocytes(ab solute) 0.7 x10e3 /uL 0.1-0. 9 Not Available [facility] ([facility]) [address] [facility] [address], [place], [address], 10/22/2023 03:36:44 10/21/19 24 10/21/2023 CBC WITH DIFFE RENTI AL/PL ATELE T eos (absolute) 0.3 x10e3 /uL 0.0-0. 4 Not Available [facility] ([facility]) [address] [facility] [address], [place], [address], 10/22/2023 03:36:44 10/21/19 24 10/21/2023 CBC WITH DIFFE RENTI AL/PL ATELE T baso (absolute) 0.1 x10e3 /uL 0.0-0. 2 Not Available [facility] ([facility]) [address] [facility] [address], [place], [address], 10/22/2023 03:36:44 10/21/19 24 10/21/2023 CBC WITH DIFFE RENTI AL/PL ATELE T immature granulocytes 0 % notest ab. Not Available [facility] ([facility]) [address] [facility] [address], [place], [address], 10/22/2023 03:36:44 10/21/19 24 10/21/2023 CBC WITH DIFFE RENTI AL/PL ATELE T immature grans (abs) 0.0 x10e3 /uL 0.0-0. 1 Not Available [facility] ([facility]) [address] [facility] [address], [place], [address], 10/22/2023 03:36:44 01/26/20 24 01/27/2024 LIPID PANEL cholesterol, total 145 mg/dL 100-19 9 Not Available [facility] ([facility]) [address] [facility] [address], [place], [address], 01/27/2024 10:37:52 01/26/20 24 01/27/2024 LIPID PANEL triglyceride s 87 mg/dL 0-149 Not Available [facility] ([facility]) [address] [facility] [place], [address], 01/27/2024 10:37:52 01/26/20 24 01/27/2024 LIPID PANEL HDL cholesterol 46 mg/dL >39 Not Available [facility] ([facility]) [address] [facility] [place], [address], 01/27/2024 10:37:52 01/26/20 24 01/27/2024 LIPID PANEL VLDL cholesterol lawrence 17 mg/dL 5-40 Not Available [facility] ([facility]) [address] [facility] [place], [address], 01/27/2024 10:37:52 01/26/20 24 01/27/2024 LIPID PANEL LDL chol calc ([facility]) 82 mg/dL 0-99 Not Available [facility] ([facility]) [address] [facility] [place], [address], 01/27/2024 10:37:52 01/26/20 24 01/27/2024 COMP. METAB OLIC PANEL (14) glucose 97 mg/dL 70-99 Not Available [facility] ([facility]) [address] [facility] [place], [address], 01/27/2024 10:37:53 01/26/20 24 01/27/2024 COMP. METAB OLIC PANEL (14) BUN 50 mg/dL 8-27 above high normal Not Available [facility] ([facility]) [address] [facility] [place], [address], 01/27/2024 10:37:53 01/26/20 24 01/27/2024 COMP. METAB OLIC PANEL (14) creatinine 2.65 mg/dL 0.76-1 .27 above high normal Not Available [facility] ([facility]) [address] [facility] [place], [address], 01/27/2024 10:37:53 01/26/20 24 01/27/2024 COMP. METAB OLIC PANEL (14) eGFR 25 mL/mi n/1.7 3 >59 below low normal Not Available [facility] ([facility]) [address] [facility] [address], [place], [address], 01/27/2024 10:37:53 01/26/20 24 01/27/2024 COMP. METAB OLIC PANEL (14) BUN/creatini ne ratio 19 - Not Available [facility] ([facility]) [address] [facility], [place], [address], 01/27/2024 10:37:53 01/26/20 24 01/27/2024 COMP. METAB OLIC PANEL (14) sodium 143 mmol/ L 134-14 4 Not Available [facility] ([facility]) [address] [facility] [address], [place], [address], 01/27/2024 10:37:53 01/26/20 24 01/27/2024 COMP. METAB OLIC PANEL (14) potassium 4.8 mmol/ L 3.5-5. 2 Not Available [facility] ([facility]) [address] [facility], [place], [address], 01/27/2024 10:37:53 01/26/20 24 01/27/2024 COMP. METAB OLIC PANEL (14) chloride 109 mmol/ L 96-106 above high normal Not Available [facility] ([facility]) [address] [place], [address], 01/27/2024 10:37:53 01/26/20 24 01/27/2024 COMP. METAB OLIC PANEL (14) carbon dioxide, total 22 mmol/ L 20-29 Not Available [facility] ([facility]) [address] [place], [address], 01/27/2024 10:37:53 01/26/20 24 01/27/2024 COMP. METAB OLIC PANEL (14) calcium 8.6 mg/dL 8.6-10 .2 Not Available [facility] ([facility]) [address] [facility] [place], [address], 01/27/2024 10:37:53 01/26/20 24 01/27/2024 COMP. METAB OLIC PANEL (14) protein, total 5.9 g/dL 6.0-8. 5 below low normal Not Available [facility] ([facility]) [address] [facility] [place], [address], 01/27/2024 10:37:53 01/26/20 24 01/27/2024 COMP. METAB OLIC PANEL (14) albumin 3.8 g/dL 3.8-4. 8 Not Available [facility] ([facility]) [address] [facility] [place], [address], 01/27/2024 10:37:53 01/26/20 24 01/27/2024 COMP. METAB OLIC PANEL (14) globulin, total 2.1 g/dL 1.5-4. 5 Not Available [facility] ([facility]) [address] [facility] [place], [address], 01/27/2024 10:37:53 01/26/20 24 01/27/2024 COMP. METAB OLIC PANEL (14) bilirubin, total 0.3 mg/dL 0.0-1. 2 Not Available [facility] ([facility]) [address] [facility] [place], [address], 01/27/2024 10:37:53 01/26/20 24 01/27/2024 COMP. METAB OLIC PANEL (14) alkaline phosphatase 81 IU/L 44-121 Not Available [facility] ([facility]) [address] [facility] [place], [address], 01/27/2024 10:37:53 01/26/20 24 01/27/2024 COMP. METAB OLIC PANEL (14) AST (SGOT) 15 IU/L 0-40 Not Available [facility] ([facility]) [address] [facility], [place], [address], 01/27/2024 10:37:53 01/26/20 24 01/27/2024 COMP. METAB OLIC PANEL (14) ALT (SGPT) 12 IU/L 0-44 Not Available [facility] ([facility]) [address] [facility], [place], [address], 01/27/2024 10:37:53 01/26/20 24 01/27/2024 CBC WITH DIFFE RENTI AL/PL ATELE T WBC 7.9 x10e3 /uL 3.4-10 .8 Not Available [facility] ([facility]) [address] [facility], [place], [address], 01/27/2024 10:37:54 01/26/20 24 01/27/2024 CBC WITH DIFFE RENTI AL/PL ATELE T RBC 3.48 x10e6 /uL 4.14-5 .80 below low normal Not Available [facility] ([facility]) [address] [place], [address], 01/27/2024 10:37:54 01/26/20 24 01/27/2024 CBC WITH DIFFE RENTI AL/PL ATELE T hemoglobin 10.6 g/dL 13.0-1 7.7 below low normal Not Available [facility] ([facility]) [address] [place], [address], 01/27/2024 10:37:54 01/26/20 24 01/27/2024 CBC WITH DIFFE RENTI AL/PL ATELE T hematocrit 32.9 % 37.5-5 1.0 below low normal Not Available [facility] ([facility]) [address] [facility], [place], [address], 01/27/2024 10:37:54 01/26/20 24 01/27/2024 CBC WITH DIFFE RENTI AL/PL ATELE T MCV 95 fL 79-97 Not Available [facility] ([facility]) [address] [facility], [place], [address], 01/27/2024 10:37:54 01/26/20 24 01/27/2024 CBC WITH DIFFE RENTI AL/PL ATELE T MCH 30.5 pg 26.6-3 3.0 Not Available [facility] ([facility]) [address] [facility], [place], [address], 01/27/2024 10:37:54 01/26/20 24 01/27/2024 CBC WITH DIFFE RENTI AL/PL ATELE T MCHC 32.2 g/dL 31.5-3 5.7 Not Available [facility] ([facility]) [address] [facility], [place], [address], 01/27/2024 10:37:54 01/26/20 24 01/27/2024 CBC WITH DIFFE RENTI AL/PL ATELE T RDW 12.8 % 11.6-1 5.4 Not Available [facility] ([facility]) [address] [facility], [place], [address], 01/27/2024 10:37:54 01/26/20 24 01/27/2024 CBC WITH DIFFE RENTI AL/PL ATELE T platelets 185 x10e3 /uL 150-45 0 Not Available [facility] ([facility]) [address] [facility], [place], [address], 01/27/2024 10:37:54 01/26/20 24 01/27/2024 CBC WITH DIFFE RENTI AL/PL ATELE T neutrophils 74 % notest ab. Not Available [facility] ([facility]) [address] [place], [address], 01/27/2024 10:37:54 01/26/20 24 01/27/2024 CBC WITH DIFFE RENTI AL/PL ATELE T lymphs 11 % notest ab. Not Available [facility] ([facility]) [address] [facility], [place], [address], 01/27/2024 10:37:54 01/26/20 24 01/27/2024 CBC WITH DIFFE RENTI AL/PL ATELE T monocytes 9 % notest ab. Not Available [facility] ([facility]) [address] [facility], [place], [address], 01/27/2024 10:37:54 01/26/20 24 01/27/2024 CBC WITH DIFFE RENTI AL/PL ATELE T eos 4 % notest ab. Not Available [facility] ([facility]) [address] [facility], [place], [address], 01/27/2024 10:37:54 01/26/20 24 01/27/2024 CBC WITH DIFFE RENTI AL/PL ATELE T basos 1 % notest ab. Not Available [facility] ([facility]) [address] [facility], [place], [address], 01/27/2024 10:37:54 01/26/20 24 01/27/2024 CBC WITH DIFFE RENTI AL/PL ATELE T neutrophils (absolute) 5.9 x10e3 /uL 1.4-7. 0 Not Available [facility] ([facility]) [address], [place], [address], 01/27/2024 10:37:54 01/26/20 24 01/27/2024 CBC WITH DIFFE RENTI AL/PL ATELE T lymphs (absolute) 0.8 x10e3 /uL 0.7-3. 1 Not Available [facility] ([facility]) [address], [place], [address], 01/27/2024 10:37:54 01/26/20 24 01/27/2024 CBC WITH DIFFE RENTI AL/PL ATELE T monocytes(ab solute) 0.7 x10e3 /uL 0.1-0. 9 Not Available [facility] ([facility]) [address], [place], [address], 01/27/2024 10:37:54 01/26/20 24 01/27/2024 CBC WITH DIFFE RENTI AL/PL ATELE T eos (absolute) 0.3 x10e3 /uL 0.0-0. 4 Not Available [facility] ([facility]) [address], [place], [address], 01/27/2024 10:37:54 01/26/20 24 01/27/2024 CBC WITH DIFFE RENTI AL/PL ATELE T baso (absolute) 0.1 x10e3 /uL 0.0-0. 2 Not Available [facility] ([facility]) [address], [place], [address], 01/27/2024 10:37:54 01/26/20 24 01/27/2024 CBC WITH DIFFE RENTI AL/PL ATELE T immature granulocytes 1 % notest ab. Not Available [facility] ([facility]) [address], [place], [address], 01/27/2024 10:37:54 01/26/20 24 01/27/2024 CBC WITH DIFFE RENTI AL/PL ATELE T immature grans (abs) 0.0 x10e3 /uL 0.0-0. 1 Not Available [facility] ([facility]) [address] [place], [address], 01/27/2024 10:37:54 05/03/19 25 05/03/2024 LIPID PANEL cholesterol, total 107 mg/dL 100-19 9 Not Available [facility] ([facility]) [address] [place], [address], 05/03/2024 08:24:48 05/03/19 25 05/03/2024 LIPID PANEL triglyceride s 117 mg/dL 0-149 Not Available [facility] ([facility]) [address], [place], [address], 05/03/2024 08:24:48 05/03/19 25 05/03/2024 LIPID PANEL HDL cholesterol 42 mg/dL >39 Not Available [facility] ([facility]) [address], [place], [address], 05/03/2024 08:24:48 05/03/19 25 05/03/2024 LIPID PANEL VLDL cholesterol lawrence 21 mg/dL 5-40 Not Available [facility] ([facility]) [address] [place], [address], 05/03/2024 08:24:48 05/03/19 25 05/03/2024 LIPID PANEL LDL chol calc ([facility]) 44 mg/dL 0-99 Not Available [facility] ([facility]) [address], [place], [address], 05/03/2024 08:24:48 05/03/19 25 05/03/2024 CMP14 +EGFR glucose 97 mg/dL 70-99 Not Available [facility] ([facility]) [address] [place], [address], 05/03/2024 08:24:49 05/03/19 25 05/03/2024 CMP14 +EGFR BUN 64 mg/dL 8-27 above high normal Not Available [facility] ([facility]) [address] [place], [address], 05/03/2024 08:24:49 05/03/19 25 05/03/2024 CMP14 +EGFR creatinine 3.10 mg/dL 0.76-1 .27 above high normal Not Available [facility] ([facility]) [address] [place], [address], 05/03/2024 08:24:49 05/03/19 25 05/03/2024 CMP14 +EGFR eGFR 21 mL/mi n/1.7 3 >59 below low normal Not Available [facility] ([facility]) [address] [facility] [place], [address], 05/03/2024 08:24:49 05/03/19 25 05/03/2024 CMP14 +EGFR BUN/creatini ne ratio 21 10-24 Not Available [facility] ([facility]) [address] [facility] [place], [address], 05/03/2024 08:24:49 05/03/19 25 05/03/2024 CMP14 +EGFR sodium 141 mmol/ L 134-14 4 Not Available [facility] ([facility]) [address] [facility] [place], [address], 05/03/2024 08:24:49 05/03/19 25 05/03/2024 CMP14 +EGFR potassium 4.8 mmol/ L 3.5-5. 2 Not Available [facility] ([facility]) [address] [place], [address], 05/03/2024 08:24:49 05/03/19 25 05/03/2024 CMP14 +EGFR chloride 109 mmol/ L 96-106 above high normal Not Available [facility] ([facility]) [address], [place], [address], 05/03/2024 08:24:49 05/03/19 25 05/03/2024 CMP14 +EGFR carbon dioxide, total 21 mmol/ L 20-29 Not Available [facility] ([facility]) [address] [place], [address], 05/03/2024 08:24:49 05/03/19 25 05/03/2024 CMP14 +EGFR calcium 8.5 mg/dL 8.6-10 .2 below low normal Not Available [facility] ([facility]) [address] [place], [address], 05/03/2024 08:24:49 05/03/19 25 05/03/2024 CMP14 +EGFR protein, total 5.9 g/dL 6.0-8. 5 below low normal Not Available [facility] ([facility]) [address] [place], [address], 05/03/2024 08:24:49 05/03/19 25 05/03/2024 CMP14 +EGFR albumin 3.9 g/dL 3.8-4. 8 Not Available [facility] ([facility]) [address] [place], [address], 05/03/2024 08:24:49 05/03/19 25 05/03/2024 CMP14 +EGFR globulin, total 2.0 g/dL 1.5-4. 5 Not Available [facility] ([facility]) [address] [place], [address], 05/03/2024 08:24:49 05/03/19 25 05/03/2024 CMP14 +EGFR bilirubin, total 0.3 mg/dL 0.0-1. 2 Not Available [facility] ([facility]) [address] [place], [address], 05/03/2024 08:24:49 05/03/19 25 05/03/2024 CMP14 +EGFR alkaline phosphatase 87 IU/L 44-121 Not Available [facility] ([facility]) [address] [place], [address], 05/03/2024 08:24:49 05/03/19 25 05/03/2024 CMP14 +EGFR AST (SGOT) 16 IU/L 0-40 Not Available [facility] ([facility]) [address] [place], [address], 05/03/2024 08:24:49 05/03/19 25 05/03/2024 CMP14 +EGFR ALT (SGPT) 14 IU/L 0-44 Not Available [facility] ([facility]) [address] [place], [address], 05/03/2024 08:24:49 05/03/19 25 05/03/2024 CBC WITH DIFFE RENTI AL/PL ATELE T WBC 7.5 x10e3 /uL 3.4-10 .8 Not Available [facility] ([facility]) [address], [place], [address], 05/03/2024 08:24:50 05/03/19 25 05/03/2024 CBC WITH DIFFE RENTI AL/PL ATELE T RBC 3.54 x10e6 /uL 4.14-5 .80 below low normal Not Available [facility] ([facility]) [address] [place], [address], 05/03/2024 08:24:50 05/03/19 25 05/03/2024 CBC WITH DIFFE RENTI AL/PL ATELE T hemoglobin 11.2 g/dL 13.0-1 7.7 below low normal Not Available [facility] ([facility]) [address], [place], [address], 05/03/2024 08:24:50 05/03/19 25 05/03/2024 CBC WITH DIFFE RENTI AL/PL ATELE T hematocrit 33.7 % 37.5-5 1.0 below low normal Not Available [facility] ([facility]) [address] [place], [address], 05/03/2024 08:24:50 05/03/19 25 05/03/2024 CBC WITH DIFFE RENTI AL/PL ATELE T MCV 95 fL 79-97 Not Available [facility] ([facility]) [address] [place], [address], 05/03/2024 08:24:50 05/03/19 25 05/03/2024 CBC WITH DIFFE RENTI AL/PL ATELE T MCH 31.6 pg 26.6-3 3.0 Not Available [facility] ([facility]) [address], [place], [address], 05/03/2024 08:24:50 05/03/19 25 05/03/2024 CBC WITH DIFFE RENTI AL/PL ATELE T MCHC 33.2 g/dL 31.5-3 5.7 Not Available [facility] ([facility]) [address], [place], [address], 05/03/2024 08:24:50 05/03/19 25 05/03/2024 CBC WITH DIFFE RENTI AL/PL ATELE T RDW 12.5 % 11.6-1 5.4 Not Available [facility] ([facility]) [address], [place], [address], 05/03/2024 08:24:50 05/03/19 25 05/03/2024 CBC WITH DIFFE RENTI AL/PL ATELE T platelets 201 x10e3 /uL 150-45 0 Not Available [facility] ([facility]) [address], [place], [address], 05/03/2024 08:24:50 05/03/19 25 05/03/2024 CBC WITH DIFFE RENTI AL/PL ATELE T neutrophils 73 % notest ab. Not Available [facility] ([facility]) [address], [place], [address], 05/03/2024 08:24:50 05/03/19 25 05/03/2024 CBC WITH DIFFE RENTI AL/PL ATELE T lymphs 14 % notest ab. Not Available [facility] ([facility]) [address], [place], [address], 05/03/2024 08:24:50 05/03/19 25 05/03/2024 CBC WITH DIFFE RENTI AL/PL ATELE T monocytes 8 % notest ab. Not Available [facility] ([facility]) [address], [place], [address], 05/03/2024 08:24:50 05/03/19 25 05/03/2024 CBC WITH DIFFE RENTI AL/PL ATELE T eos 4 % notest ab. Not Available [facility] ([facility]) [address] [place], [address], 05/03/2024 08:24:50 05/03/19 25 05/03/2024 CBC WITH DIFFE RENTI AL/PL ATELE T basos 1 % notest ab. Not Available [facility] ([facility]) [address] [place], [address], 05/03/2024 08:24:50 05/03/19 25 05/03/2024 CBC WITH DIFFE RENTI AL/PL ATELE T neutrophils (absolute) 5.4 x10e3 /uL 1.4-7. 0 Not Available [facility] ([facility]) [address] [place], [address], 05/03/2024 08:24:50 05/03/19 25 05/03/2024 CBC WITH DIFFE RENTI AL/PL ATELE T lymphs (absolute) 1.0 x10e3 /uL 0.7-3. 1 Not Available [facility] ([facility]) [address] [place], [address], 05/03/2024 08:24:50 05/03/19 25 05/03/2024 CBC WITH DIFFE RENTI AL/PL ATELE T monocytes(ab solute) 0.6 x10e3 /uL 0.1-0. 9 Not Available [facility] ([facility]) [address] [place], [address], 05/03/2024 08:24:50 05/03/19 25 05/03/2024 CBC WITH DIFFE RENTI AL/PL ATELE T eos (absolute) 0.3 x10e3 /uL 0.0-0. 4 Not Available [facility] ([facility]) [address] [place], [address], 05/03/2024 08:24:50 05/03/19 25 05/03/2024 CBC WITH DIFFE RENTI AL/PL ATELE T baso (absolute) 0.1 x10e3 /uL 0.0-0. 2 Not Available [facility] ([facility]) [address], [place], [address], 05/03/2024 08:24:50 05/03/19 25 05/03/2024 CBC WITH DIFFE RENTI AL/PL ATELE T immature granulocytes 0 % notest ab. Not Available [facility] ([facility]) [address], [place], [address], 05/03/2024 08:24:50 05/03/19 25 05/03/2024 CBC WITH DIFFE RENTI AL/PL ATELE T immature grans (abs) 0.0 x10e3 /uL 0.0-0. 1 Not Available [facility] ([facility]) [address], [place], [address], 05/03/2024 08:24:50 10/29/19 24 10/29/2023 elect rocar diogr am No observ ation record ed. REINA In-Office Order Internal Use Only DO Not Attach Compendium DO Not Attach Compendium, Do Not Delete/merge, [id number] 10/29/2023 14:04:14 10/29/19 elect rocar diogr am No observ ation record ed. sl[facility] Not Available 10/28 14:04:15 10/29/19 elect rocar diogr am No observ ation record ed. sl[facility] Not Available 10/28 14:04:15 08/24/19 25 jennifer r monit or No observ ation record ed. [facility] [address], [place], [address], 08/23/2024 14:17:05 09/04/19 25 08/30/2024 US, echoc ardio gram, trans thora cic, compl ete, w/ color flow No observ ation record ed. [facility] Sched[facility] [address], [place], [address], 09/05/2024 07:53:53 Result Notes None recorded. Problems Name Problem SNOMED Code Status Onset Date Resolution Date Notes Provider Name and Address Organization Details Recorded Time Essential hypertensio n 84593638 Active 2023 Toby Pompa MD Attn: Edward thomson,[address] [facility], [place], [address], [place] [facility] 4 10:33:12 Atheroscler osis of coronary artery without angina pectoris 3726974653358 03 Active 2023 Toby Pompa MD Attn: Edward thomson,[address] [facility], [place], [address], [place] [facility] 4 10:33:13 Nonsustaine d monomorphic ventricular tachycardia Active 2023 Toby Pompa MD Attn: Edward thomson,[address] [facility], [place], [address], [place] [facility] 4 10:33:14 Pure hypercholes terolemia 525648658 Active 2023 Toby Pompa MD Attn: Edward thomson,[address] [facility], [place], [address], [place] [facility] 4 10:33:15 Edema of lower extremity 924622784 Active 2023 Toby Pompa MD Attn: Edward thomson,[address] [facility], [place], [address], [place] [facility] 4 10:33:18 Anemia in chronic kidney disease 872820351 Active 2023 Toby Pompa MD Attn: Edward thomson,[address] [facility], [place], [address], [place] [facility] 4 10:55:48 Syncope 553935347 Active 2024 Toby Pompa MD Attn: Edward thomson,[address] [facility], [place], [address], [facility] 5 09:45:46 Postural dizziness 552062680 Active 2024 Toby Pompa MD Attn: Edward thomson[address] [facility], [place], [address], [facility] 5 09:46:15 Long-term current use of drug therapy 813164415 Active 2024 Toby Pompa MD Attn: Edward thomson,[address] [facility], [place], [address], [facility] 5 09:34:58 Problem Notes None recorded. Medical Equipment None Reported. Allergies No known drug allergies Medications Name Sig Start Date Stop Date Status Note LastModified by Organization Details LastModified Time losartan 50 mg tablet 04/26 completed Not Available Not Available Not Available carvedilol 25 mg tablet Take 1 tablet twice a day by oral route. 2024 active Not Available Not Available Not Avai lable doxycycline hyclate 100 mg capsule 04/26 completed Not Available Not Available Not Available carvedilol 12.5 mg tablet Take 1 tablet twice a day by oral route. 11/12 completed Not Available Not Available Not Available Vitamin C 500 mg tablet Take 1 tablet every day by oral route. active Not Available Not Available No t Available benzonatate 200 mg capsule TAKE 1 CAPSULE BY MOUTH THREE TIMES DAILY FOR 10 DAYS 08/02 completed Not Available Not Available Not Available hydralazine 25 mg tablet TAKE 1 TABLET BY MOUTH EVERY DAY AT DINNER 2024 active Not Available Not Available Not Avai lable amlodipine 2.5 mg tablet Take 1 tablet every day by oral route. 08/02 completed Not Available Not Available Not Available clopidogrel 75 mg tablet Take 1 tablet every day by oral route. 2023 active Not Available Not Available Not Avai lable amlodipine 5 mg tablet Take 1 tablet every day by oral route. 08/02 completed Not Available Not Available Not Available famotidine 20 mg tablet 1 talet daily 02/03 completed Not Available Not Available Not Available baclofen 10 mg tablet TAKE 1 TABLET BY MOUTH THREE TIMES DAILY FOR 5 DAYS NEEDED 08/02 completed Not Available Not Available Not Available benzonatate 100 mg capsule TAKE 1 CAPSULE BY MOUTH THREE TIMES DAILY FOR UP TO 5 DAYS NEEDED FOR COUGH 10/28 completed Not Available Not Available Not Available erythromyci n 5 mg/gram (0.5 %) eye ointment 04/26 completed Not Available Not Available Not Available nitroglycer in 0.[address] 1 tablet by sublingua l route, for 1 tablet under tongue every 5 mintues X3 for chest pain. active Not Available Not Available No t Available furosemide 20 mg tablet Take 1 tablet daily 2024 active PRN Not Available Not Available Not Avai lable albuterol sulfate HFA 90 mcg/actuati on aerosol inhaler INHALE 1-2 PUFFS EVERY 4-6 HOURS NEEDED FOR WHEEZING. USE FOR 10 DAYS active Not Available Not Available No t Available bromphenira mine-pseudo ephedrine-D M 2 mg-30 mg-10 mg/5 mL oral syrup TAKE 10 ML BY MOUTH TWICE DAILY FOR UP TO 5 DAYS NEEDED 02/03 completed Not Available Not Available Not Available cefdinir 300 mg capsule TAKE 1 CAPSULE BY MOUTH EVERY 12 HOURS FOR 10 DAYS 08/02 completed Not Available Not Available Not Available doxycycline hyclate 100 mg tablet TAKE 1 TABLET BY MOUTH TWICE DAILY 02/03 completed Not Available Not Available Not Available iron 65 mg tablet Take 1 tablet every day by oral route. active Not Available Not Available No t Available Asprin Ec Low Dose 81 mg tablet,jonathan yed release Take 1 tablet every day by oral route. active Not Available Not Available No t Available ezetimibe 10 mg tablet Take 1 tablet every day by oral route. active Not Available Not Available No t Available rosuvastati n 20 mg tablet Take 1 tablet every day by oral route. 2024 active Not Available Not Available Not Avai lable rosuvastati n 40 mg tablet Take 1 tablet every day by oral route. 02/03 completed Not Available Not Available Not Available sodium bicarbonate 1 tab twice daily active Not Available Not Available No t Available CoQ-10 100 mg capsule Take 1 capsule every day by oral route. active Not Available Not Available No t Available Jardiance 10 mg tablet 1 tablet daily active Not Available Not Available No t Available Entresto 24 mg-26 mg tablet Take 1 tablet twice a day by oral route. active Not Available Not Available No t Available Vitals Date Recorded Body height Body mass index (BMI) Body weight Heart rate Oxygen saturation Oxygen saturation in Arterial blood by Pulse oximetry Systolic And Diastolic Provider Name and Address Organization Details Last Updated DateTime 5 182.88 cm 26.5 kg/m2 48722.2 3 g 73 /min 97 % 97 % 118/70 mm[Hg] Flores Mckeon MA [facility] 5 09:01:44 Date Recorded Body height Body mass index (BMI) Body weight Heart rate Oxygen saturation Oxygen saturation in Arterial blood by Pulse oximetry Systolic And Diastolic Provider Name and Address Organization Details Last Updated DateTime 5 182.88 cm 25.7 kg/m2 30284.0 4 g 79 /min 96 % 96 % 120/68 mm[Hg] Flores Mckeon MA [facility] 5 09:09:45 Date Recorded Body height Body mass index (BMI) Body weight Heart rate Oxygen saturation Oxygen saturation in Arterial blood by Pulse oximetry Systolic And Diastolic Provider Name and Address Organization Details Last Updated DateTime 5 182.88 cm 25.6 kg/m2 10145.6 g 80 /min 97 % 97 % 112/72 mm[Hg] Ramone Delarosa MA [facility] 5 09:02:12 Date Recorded Body height Body mass index (BMI) Body weight Oxygen saturation Oxygen saturation in Arterial blood by Pulse oximetry Heart rate Systolic And Diastolic Provider Name and Address Organization Details Last Updated DateTime 4 182.88 cm 26 kg/m2 59625.7 4 g 98 % 98 % 76 /min 114/62 mm[Hg] Zachariah Mendez MA [facility] 4 09:58:40 Date Recorded Body height Body mass index (BMI) Body weight Heart rate Oxygen saturation Oxygen saturation in Arterial blood by Pulse oximetry Systolic And Diastolic Provider Name and Address Organization Details Last Updated DateTime 4 182.88 cm 26.3 kg/m2 75464.9 2 g 80 /min 97 % 97 % 114/64 mm[Hg] Ramone Delarosa [place] [facility] 4 09:10:18 Social History Question Answer Notes LastModified by [employer] Details LastModified Time Tobacco Smoking Status Former Smoker Floresninfa Mckeon MA null, [place] [facility] 04/27/2023 14:27:12 What Was The Date Of Your Most Recent Tobacco Screening? 09/09/2024 Information not available 09/09/2024 Has Tobacco Cessation Counseling Been Provided? No Information not available 09/09/2024 Sex: Male Functional Status Question Answer Note LastModified by [employer] Details LastModified Time Do you use any illicit or recreational drugs? No Information not available 02/04/2024 Do you or have you ever used any other forms of tobacco or nicotine? No Information not available 02/04/2024 Mental Status None recorded. Family History Nothing Reported. Medical History No medical history recorded. Immunizations Vaccine Type Date Status Note Provider Nam e and Address Organization Details Recorded Time zoster recombinant 9 completed KARTHIKEYAN She[place], [place] 10/29/2023 09:54:30 Influenza, high-dose, quadrivalent, PF 2 completed Zachariah Mendez [place], [place] [facility] 10/29/2023 09:54:30 Influenza, high-dose, quadrivalent, PF 1 completed Zachariah Mendez [place], [place] [facility] 10/29/2023 09:54:30 Influenza, high-dose, quadrivalent, PF 0 completed KARTH[place]KEYAN [place] 10/29/2023 09:54:30 Influenza, adjuvanted, quadrivalent, PF 3 completed KARTH[place]KEY[place] 10/29/2023 09:54:30 COVID-19, mRNA, LNP-S, PF, 100 mcg/0.5mL dose or 50 mcg/0.25mL dose 1 [place] [facility] 10/29/2023 09:54:30 COVID-19, mRNA, LNP-S, PF, 100 mcg/0.5mL dose or 50 mcg/0.25mL dose 1 [place] [facility] 10/29/2023 09:54:30 COVID-19, mRNA, LNP-S, PF, 100 mcg/0.5mL dose or 50 mcg/0.25mL dose 1 completed [place] [facility] 10/29/2023 09:54:30 COVID-19, mRNA, LNP-S, bivalent, PF, 50 mcg/0.5 mL or 25mcg/0.25 mL dose 2 completed [place] [facility] 10/29/2023 09:54:30 COVID-19, mRNA, LNP-S, PF, 50 mcg/0.5 mL 4 completed [place] [facility] 10/29/2023 09:54:30 COVID-19, mRNA, LNP-S, PF, 50 mcg/0.5 mL 3 [place] [facility] 10/29/2023 09:54:30 pneumococcal polysaccharide PPV23 9 [place] [facility] 10/29/2023 09:54:30 Pneumococcal conjugate PCV 13 8 [place] [facility] 10/29/2023 09:54:30 Influenza, high-dose, trivalent, PF 9 completed [place] [facility] 10/29/2023 09:54:30 Influenza, adjuvanted, trivalent, PF 4 completed Not Available [facility] 09/09/2024 08:55:45 COVID-19, mRNA, LNP-S, PF, 50 mcg/0.5 mL 4 completed Not Available [facility] 09/09/2024 08:55:45 RSV, recombinant, protein subunit RSVpreF, adjuvant reconstituted, 0.5 mL, PF 4 completed Not Available [facility] 09/09/2024 08:55:45 Pneumococcal conjugate PCV20, polysaccharide FSI684 conjugate, adjuvant, PF 4 completed Not Available [facility] 09/09/2024 08:55:45 Past Encounters Encounter ID Performer Location Encounter Start Date Encounter Closed Date Diagnosis/Indication Diagnosis SNOMED-CT Code Diagnosis ICD10 Code Diagnosis Note [id number] Toby Pompa MD [facility] [place] [facility] [address] [place] [address] 04/27/2023 14:06:27 04/28/2023 09:47:40 Nonischemic congestive cardiomyopathy 8128077408 04 I42.0 exp Essential hypertension 50799460 I10 express Atheroscle rosis of coronary artery without angina pectoris 5093218587 93163 I25.10 Pure hypercholesterolemia 830121338 E78.00 Nonsustain ed monomorphic ventricular tachycardia 9685495213 I47.29 Palpitations 02660498 R0 0.2 Diastolic dysfunction 35 16579 I51.9 Long-term current use of antiplatelet drug 2537052462 59958 Z79.02 [id number] Toby Pompa MD [facility] [place] [facility] [address] [place] [address] 10/29/2023 09:43:04 11/02/2023 08:35:50 Essential hypertension 31604791 I10 Atheroscle rosis of coronary artery without angina pectoris 9365682490 41784 I25.10 Nonsustain ed monomorphic ventricular tachycardia 5240897143 I47.29 Pure hypercholesterolemia 567127952 E78.00 Edema of l ower extremity 615803447 R60.0 Anemia in chronic kidney disease 519411958 D63.1 [id number] Toby Pompa MD [facility] [place] [facility] [address] [place] [address] 02/04/2024 08:56:21 02/08/2024 11:10:52 Atherosclerosis of coronary artery without angina pectoris 0127760421 23047 I25.10 Essential hypertension 68964411 I10 Pure hypercholesterolemia 632802951 E78.00 Nonsustain ed monomorphic ventricular tachycardia 9219461101 I47.29 Nonischemi c congestive cardiomyopathy 8424539283 04 I42.0 exp Renewal of prescription 308851819 Z76.0 [id number] Toby Pompa MD [facility] [place] [facility] [address] [place] [address] 05/11/2024 08:45:37 05/12/2024 09:40:47 Atherosclerosis of coronary artery without angina pectoris 4035898348 32913 I25.10 Nonsustain ed monomorphic ventricular tachycardia 1633902022 I47.29 Essential hypertension 59930489 I10 Pure hypercholesterolemia 873433177 E78.00 Edema of l ower extremity 113690744 R60.0 Overweight 697498598 E66 .3 [id number] Toby Pompa MD [facility] [place] [facility] [address] [place] [address] 09/09/2024 08:55:13 09/09/2024 09:37:41 Atherosclerosis of coronary artery without angina pectoris 9577814673 69610 I25.10 Nonsustain ed monomorphic ventricular tachycardia [id number] I47.29 Essential hypertension 48971951 I10 Pure hypercholesterolemia 794148667 E78.00 Edema of l ower extremity 448292333 R60.0 Overweight 407522760 E66 .3 Long-term current use of drug therapy 688479471 Z79.02 [id number] Toby Pompa MD [facility] [place] [facility] [address] [place] [address] 08/02/2024 08:56:36 08/03/2024 11:55:12 Pure hypercholesterolemia 460241792 E78.00 Overweight 867584996 E66 .3 Nonsustain ed monomorphic ventricular tachycardia 0506880340 I47.29 Atheroscle rosis of coronary artery without angina pectoris [id number] 03838 I25.10 Essential hypertension 54109141 I10 Edema of l ower extremity 133712710 R60.0 Postural dizziness 09271 7008 R42 Syncope 172442422 R55 Health Concerns Section Related Observation LastModified by Organization Detai ls LastModified Time None Recorded Concern Status LastModified by Organization Details LastModified Time None Recorded Advance Directives Directive None Recorded Payers Insurance Date Sequence Insurance Name Policy Number Policy Prieto Covered Member ID Prieto Member ID Guarantor Name 09/06/2024 [place] [facility] Jose Angel Suazo [id number] Jose Angel Suazo 09/06/2024 1 [facility] (MEDICARE) Jose Angel Suazo [id number] Jose Angel Suazo 04/28/[address] [facility] (MEDICARE REPLACEMENT/ ADVANTAGE - HMO) Jose Angel Suazo [id number] Jose Angel Suazo 04/27/2023 1 [place] Jose Angel Suazo [id number] Jose Angel Suazo 09/06/2024 2 [employer] (MEDICARE SUPPLEMENT) Jose Angel Suazo [id number] Jose Angel Suazo
--- OUTSIDE RECORDS SUMMARY | 2024-09-13 01:57 | XMS_ITS | Encounter Summary ---
Author Organization [facility] Address [address] [place] [address] Care Team Providers Care Electronic Prepress Technician Name Role Phone Akbar Peterson MD Primary Care Provider Unavailable Bruno Parekh MD Primary Care Provider [phone] Encounter Details Date Type Department Care Team (Latest Contact Info) Description 05/16/2016 Abstract [facility] Akbar Peterson MD Social History Tobacco Use [...] on filedocumented in this encounter Care Teams Electronic Prepress Technician Relationship Specialty Start Date End Date Akbar Peterson MD PCP - General 02/08/15 Bruno Parekh MD [facility] [facility] [place] [address] PCP - General INTERNAL MEDICINE 04/21/18 documented as of this encounter
--- OUTSIDE RECORDS SUMMARY | 2024-09-13 01:58 | XMS_ITS | Clinical Summary ---
Author Organization [facility] Office Center Address [address] [place] [address] Care Team Providers Care Culinary Director Name Role Phone Bruno Parekh MD Primary Care Provider [phone] Bruno Parekh MD Unavailable [phone] Allergies No known active allergies Medications aspirin 81 mg enteric coated tablet Take 1 tablet (81 mg total) by mouth daily Active ascorbic acid (VITAMIN C) 500 mg tablet,chewable daily Acti ve multivitamin/iro n/folic acid (CENTRUM COMPLETE ORAL) Take by mouth A ctive nitroglycerin (NITROSTAT) 0.4 mg SL tablet DISSOLVE 1 TABLET UNDER THE TONGUE EVERY 5 MINUTES (UP TO 3 DOSES TOTAL) NEEDED FOR CHEST PAIN. 25 tablet 3 2 Active coenzyme Q10 100 mg capsule Take 1 capsule (100 mg total) by mouth daily Active furosemide (LASIX) 20 mg tablet TAKE 1 TABLET DAILY NEEDED FOR SWELLING 90 tablet 3 3 Active ferrous sulfate 325 mg (65 mg of elemental iron) tabletIndication s:Iron Deficiency Anemia Take 1 tablet (325 mg total) by mouth daily with breakfast Active clopidogreL (PLAVIX) 75 mg tablet Take 1 tablet (75 mg total) by mouth daily 90 tablet 3 4 Active Entresto 24-26 mg tablet Take 1 tablet by mouth 2 (two) times a day 3 Active amLODIPine (NORVASC) 2.5 mg tablet Take 0.5 tablets (1.25 mg total) by mouth daily 4 Active Additional Information Patient taking differently: 2.5 mgoral Daily, Reported on 06/15/2024 carvediloL (COREG) 25 mg tablet Take 1 tablet (25 mg total) by mouth 2 (two) times a day with meals Active rosuvastatin (CRESTOR) 20 mg tablet Take 1 tablet (20 mg total) by mouth daily Active sodium bicarbonate 650 mg tablet Take 1 tablet (650 mg total) by mouth 3 (three) times a day 4 Active Jardiance 10 mg tablet TAKE 1 TABLET DAILY 90 tablet 3 4 Active ezetimibe (ZETIA) 10 mg tablet Take 1 tablet (10 mg total) by mouth daily Active Active Problems Problem Noted Date Diagnosed Date Onychomycosis 05/29/2023 Assessment & Plan (05/29/2023 11:06 AM CDT): Patient with the fungus infection of the left great toenail. He was seen by [facility] in the past. Will make him a referral to see a [facility]. BMI 25.0-25.9,adult 05/22/2022 Bilateral lower extremity edema 12/05/2021 Dyspnea on exertion 12/19/2020 Palpitations 12/19/2020 Chronic right shoulder pain 08/09/2020 Overview (10/10/2020): Resolved Assessment & Plan (05/22/2022 10:54 AM CDT): Patient with chronic right shoulder pain secondary to osteoarthritis. I told him to try Tylenol as needed. Continue to increase range of motion. If he has persistent symptoms he can call the orthopedic doctor for possible steroid injection. Assessment & Plan (10/10/2020 10:02 AM CDT): Resolved Assessment & Plan (08/09/2020 4:23 PM CDT): Patient with chronic pain in the right shoulder. The exam was essentially unremarkable. Patient takes Tylenol and it does not help much. Will obtain MRI of the right shoulder to rule out tendinitis or tear in the tendon or ligament. Further recommendations after that. Hypertensive kidney disease with stage 4 chronic kidney disease 01/05/2019 Assessment & Plan (06/01/2024 7:30 AM CDT): Continue current medications. Discussed low-salt diet. Discussed exercise on regular basis. Will continue to monitor Assessment & Plan (12/02/2023 7:40 AM CDT): Continue current medications. Discussed low-salt diet. Discussed exercise on regular basis. Will continue to monitor Assessment & Plan (05/29/2023 7:47 AM CDT): Continue current medications. Discussed low-salt diet. Discussed exercise on regular basis. Will continue to monitor Assessment & Plan (11/21/2022 7:50 AM CDT): Continue current medications. Discussed low-salt diet. Discussed exercise on regular basis. Will continue to monitor Assessment & Plan (11/20/2021 7:50 AM CDT): Continue current medications. Discussed low-salt diet. Discussed exercise on regular basis. Will continue to monitor Assessment & Plan (04/12/2021 8:58 AM CHIEF METER READER): Continue current medications. Discussed low-salt diet. Discussed exercise on regular basis. Will continue to monitor Assessment & Plan (10/10/2020 8:01 AM CDT): Continue current medications. Discussed low-salt diet. Discussed exercise on regular basis. Will continue to monitor Assessment & Plan (04/11/2020 11:28 AM CHIEF METER READER): Continue current medications. Discussed low-salt diet. Discussed exercise on regular basis. Will continue to monitor Assessment & Plan (10/06/2019 9:43 AM CDT): Continue current medications. Discussed low-salt diet. Discussed exercise on regular basis. Will continue to monitor Assessment & Plan (04/07/2019 12:24 PM CHIEF METER READER): Continue current medications. Discussed low-salt diet. Discussed exercise on regular basis. Will continue to monitor Assessment & Plan (01/05/2019 12:29 PM CHIEF METER READER): Continue current medications. Discussed low-salt diet. Discussed exercise on regular basis. Will continue to monitor Anemia in stage 4 chronic kidney disease 019 Assessment & Plan (06/01/2024 7:29 AM CDT): Managed by the plating equipment tender Assessment & Plan (05/22/2022 7:44 AM CDT): Managed by the plating equipment tender Assessment & Plan (04/12/2021 8:57 AM CHIEF METER READER): Mild anemia secondary to chronic kidney disease. It is stable and followed by the plating equipment tender Assessment & Plan (10/10/2020 8:01 AM CDT): Managed by the plating equipment tender Assessment & Plan (10/06/2019 9:43 AM CDT): Patient is maintained on Ritacrit injections by the plating equipment tender Assessment & Plan (01/05/2019 12:28 PM CHIEF METER READER): The patient has chronic anemia secondary to chronic kidney disease and he is on Epogen shots and followed by the plating equipment tender Simple chronic bronchitis 11/15/2018 Assessment & Plan (06/01/2024 7:30 AM CDT): Patient is asymptomatic. He quit smoking Assessment & Plan (12/02/2023 7:40 AM CDT): Patient is asymptomatic. He quit smoking Assessment & Plan (05/29/2023 7:47 AM CDT): Patient is asymptomatic. He quit smoking Assessment & Plan (11/21/2022 7:51 AM CDT): Patient is asymptomatic. He quit smoking Assessment & Plan (11/20/2021 7:50 AM CDT): Patient is asymptomatic. He quit smoking Assessment & Plan (10/10/2020 8:01 AM CDT): Asymptomatic. Patient quit smoking Assessment & Plan (04/11/2020 11:28 AM CHIEF METER READER): Asymptomatic Assessment & Plan (10/06/2019 9:43 AM CDT): Asymptomatic Assessment & Plan (04/07/2019 12:23 PM CHIEF METER READER): Asymptomatic and he quit smoke Assessment & Plan (01/05/2019 12:29 PM CHIEF METER READER): The patient is asymptomatic. He stopped Symbicort. He feels fine and does not have any respiratory complaints. Assessment & Plan (11/15/2018 9:07 AM CDT): The patient has cough for over a month. We did spirometry that showed FEV1/FVC ratio at 75%. The patient will be started on Symbicort 160 mcg 2 puffs b.i.d.. Samples were given. Will obtain CT of the chest without contrast for further evaluation. The patient will call for persistent symptoms. CRD (chronic renal disease), stage IV 10/21/2018 Assessment & Plan (06/01/2024 7:29 AM CDT): Managed by the plating equipment tender Assessment & Plan (12/02/2023 7:40 AM CDT): Managed by the plating equipment tender Assessment & Plan (05/29/2023 7:46 AM CDT): Managed by the plating equipment tender Assessment & Plan (11/21/2022 7:50 AM CDT): Managed by the plating equipment tender Assessment & Plan (05/22/2022 7:45 AM CDT): Managed by the plating equipment tender Assessment & Plan (11/20/2021 7:51 AM CDT): Managed by the plating equipment tender Assessment & Plan (04/12/2021 8:57 AM CHIEF METER READER): Managed by the plating equipment tender Assessment & Plan (10/10/2020 8:01 AM CDT): Managed by the plating equipment tender Assessment & Plan (04/11/2020 11:28 AM CHIEF METER READER): Managed by the plating equipment tender Assessment & Plan (10/06/2019 9:43 AM CDT): Managed by the plating equipment tender Assessment & Plan (04/07/2019 12:24 PM CHIEF METER READER): Followed by the plating equipment tender Assessment & Plan (01/05/2019 12:29 PM CHIEF METER READER): Managed by the plating equipment tender NSVT (nonsustained ventricular tachycardia) 08/17 Persistent proteinuria 07/15/2018 Secondary hyperparathyroidism 07/15/2018 Pulmonary nodule 07/04/2018 Assessment & Plan (11/21/2022 11:23 AM CDT): CT of the lungs in May 2022 showed stable small pulmonary nodules Assessment & Plan (05/22/2022 10:55 AM CDT): CT of the chest was ordered Assessment & Plan (11/20/2021 7:50 AM CDT): Stable pulmonary nodules on CT of the chest in March 2021 Assessment & Plan (04/12/2021 8:58 AM CHIEF METER READER): Will obtain CT of the lungs for further evaluation Assessment & Plan (10/06/2019 9:43 AM CDT): Stable pulmonary nodules in October 2018 Assessment & Plan (04/07/2019 12:23 PM CHIEF METER READER): Stable pulmonary nodule in October 2018 Assessment & Plan (01/05/2019 12:27 PM CHIEF METER READER): No change in pulmonary nodule on CT done in October 2018 Assessment & Plan (10/05/2018 12:23 PM CDT): The patient has pulmonary nodule and he will need repeated CT of the chest in 6- 12 months Assessment & Plan (07/05/2018 12:23 PM CDT): Patient has pulmonary nodule that was found during his hospitalization and will repeat CT of the chest in 6-12 months for further evaluation Chronic systolic congestive heart failure 2018 Assessment & Plan (06/01/2024 7:29 AM CDT): Patient is euvolemic. Continue Lasix. Followed by the client sales and service officer Assessment & Plan (12/02/2023 7:39 AM CDT): Patient is euvolemic. Continue Lasix. Followed by the client sales and service officer Assessment & Plan (05/29/2023 7:46 AM CDT): Patient is euvolemic. Continue Lasix. Followed by the client sales and service officer Assessment & Plan (11/21/2022 7:50 AM CDT): Patient is euvolemic. Continue Lasix. Followed by the client sales and service officer Assessment & Plan (05/22/2022 7:45 AM CDT): Patient is euvolemic. Continue Lasix. Followed by the client sales and service officer Assessment & Plan (11/20/2021 7:50 AM CDT): Continue medical treatment and low-salt diet Assessment & Plan (04/12/2021 8:57 AM CHIEF METER READER): Continue Lasix Assessment & Plan (04/11/2020 11:27 AM CHIEF METER READER): Patient is euvolemic. Continue low-salt diet and Lasix p.r.n. Assessment & Plan (10/06/2019 9:43 AM CDT): Patient is euvolemic. He is asymptomatic. Assessment & Plan (04/07/2019 12:23 PM CHIEF METER READER): Patient is asymptomatic Assessment & Plan (01/05/2019 12:28 PM CHIEF METER READER): Asymptomatic and followed by the Cardiology Assessment & Plan (11/15/2018 9:06 AM CDT): Continue current diuretics and low-salt diet Assessment & Plan (10/05/2018 12:23 PM CDT): The patient is stable on current medications and he has follow-up with the client sales and service officer with echocardiogram Assessment & Plan (07/05/2018 12:23 PM CDT): Continue low-salt diet. He will take Lasix p.r.n.. The patient weighs himself daily. Patient will start cardiac rehab. Patient is followed by the client sales and service officer. Pure hypercholesterolemia 06/29/2018 Assessment & Plan (12/02/2023 7:40 AM CDT): Controlled on current medications. Continue low-fat diet. Will continue to monitor . Assessment & Plan (05/29/2023 7:47 AM CDT): Controlled on current medications. Continue low-fat diet. Will continue to monitor . Assessment & Plan (05/22/2022 7:46 AM CDT): Controlled on current medications. Continue low-fat diet. Will continue to monitor . Assessment & Plan (11/20/2021 7:49 AM CDT): Controlled on current medications. Continue low-fat diet. Will continue to monitor . Assessment & Plan (04/12/2021 8:57 AM CHIEF METER READER): Controlled on current medications. Continue low-fat diet. Will continue to monitor . Assessment & Plan (10/10/2020 8:01 AM CDT): Controlled on current medications. Continue low-fat diet. Will continue to monitor . Assessment & Plan (04/11/2020 11:26 AM CHIEF METER READER): Controlled on current medications. Continue low-fat diet. Will continue to monitor . Assessment & Plan (10/06/2019 9:42 AM CDT): Controlled on current medications. Continue low-fat diet. Will continue to monitor . Assessment & Plan (04/07/2019 12:22 PM CHIEF METER READER): Controlled on current medications. Continue low-fat diet. Will continue to monitor . Assessment & Plan (01/05/2019 12:27 PM CHIEF METER READER): Controlled on current medications. Continue low-fat diet. Will continue to monitor . Assessment & Plan (10/05/2018 12:24 PM CDT): Controlled on current medications. Continue low-fat diet. Will continue to monitor . Non-rheumatic mitral regurgitation 06/29/2018 Assessment & Plan (04/07/2019 12:23 PM CHIEF METER READER): Asymptomatic and followed by the Cardiology Assessment & Plan (01/05/2019 12:27 PM CHIEF METER READER): Asymptomatic and followed by the Cardiology Assessment & Plan (10/05/2018 12:24 PM CDT): Asymptomatic and followed by the client sales and service officer Coronary artery disease invo lving elim ira coronary artery of elim ira heart without angina pectoris 06/29/2018 Assessment & Plan (06/01/2024 7:29 AM CDT): Controlled on medical treatment and followed by the client sales and service officer Assessment & Plan (12/02/2023 7:39 AM CDT): Controlled on medical treatment and followed by the client sales and service officer Assessment & Plan (05/29/2023 7:46 AM CDT): Controlled on medical treatment and followed by the client sales and service officer Assessment & Plan (11/21/2022 7:50 AM CDT): Controlled on medical treatment and followed by the client sales and service officer Assessment & Plan (05/22/2022 7:45 AM CDT): Controlled on medical treatment and followed by the client sales and service officer Assessment & Plan (11/20/2021 7:49 AM CDT): Controlled on medical treatment and followed by the client sales and service officer Assessment & Plan (04/12/2021 8:57 AM CHIEF METER READER): Patient is maintained on medical treatment. He is asymptomatic. He had recent stress test. He is followed by the client sales and service officer Assessment & Plan (10/10/2020 8:01 AM CDT): Continue medical treatment. He is maintained on aspirin. Follow-up with client sales and service officer Assessment & Plan (04/11/2020 11:27 AM CHIEF METER READER): Stable on medical treatment and followed by the client sales and service officer Assessment & Plan (10/06/2019 9:42 AM CDT): Patient is asymptomatic. He has mild coronary artery disease. He is on Plavix. Assessment & Plan (04/07/2019 12:23 PM CHIEF METER READER): Patient has mild coronary artery disease he is stable on current medications and followed by the Cardiology Assessment & Plan (01/05/2019 12:27 PM CHIEF METER READER): The patient has mild coronary artery disease and controlled with medications Assessment & Plan (11/15/2018 9:06 AM CDT): The patient is controlled on medical treatment Assessment & Plan (10/05/2018 12:24 PM CDT): The patient will continue with medical treatment and he is followed by the client sales and service officer Assessment & Plan (07/05/2018 12:22 PM CDT): The patient has 2 vessel coronary artery disease and he is maintained on aspirin and he is followed by the client sales and service officer Nonischemic cardiomyopathy 06/29/2018 Assessment & Plan (06/01/2024 7:30 AM CDT): Patient is euvolemic. He will continue with current medications. He is followed by the client sales and service officer Assessment & Plan (05/29/2023 7:47 AM CDT): Patient is euvolemic. He will continue with current medications. He is followed by the client sales and service officer Assessment & Plan (10/06/2019 9:42 AM CDT): Patient is euvolemic. He will continue with current medications. He is followed by the client sales and service officer Assessment & Plan (04/07/2019 12:23 PM CHIEF METER READER): The patient is euvolemic and he is maintained on diuretics and low aspect Assessment & Plan (01/05/2019 12:27 PM CHIEF METER READER): The patient is asymptomatic and followed by the client sales and service officer Assessment & Plan (11/15/2018 9:06 AM CDT): Patient is stable and ejection fraction improved to 45% Assessment & Plan (10/05/2018 12:24 PM CDT): The patient wears the life vest and he will have echocardiogram and further recommendations will be after that. Assessment & Plan (07/05/2018 12:22 PM CDT): Continue carvedilol and lisinopril. And the patient is followed by the client sales and service officer. We discussed low-salt diet. The patient will start cardiac rehab BMI 24.0-24.9, adult 06/02/2018 Allergic rhinitis 01/26/2018 Erectile dysfunction 08/04/2017 Bronchitis 08/27/2014 Hematuria 10/30/2013 Sciatica 10/30/2013 Peyronie disease 07/21/2013 Headache 05/04/2013 Facial cellulitis 04/17/2013 Hand pain, left 01/11/2013 Resolved Problems Problem Noted Date Diagnosed Date Resolved Date Tobacco dependence 02/19/2018 0 Assessment & Plan (01/05/2019 12:27 PM CHIEF METER READER): The patient quit smoking I believe in May 2018 Assessment & Plan (11/15/2018 9:05 AM CDT): The patient quit smoking Assessment & Plan (10/05/2018 12:23 PM CDT): The patient quit smoking and he has of Chantix and he has no urge to smoke Assessment & Plan (07/05/2018 12:21 PM CDT): The patient stopped smoking about 2 weeks ago and he is maintained on Chantix with no side effects. Encounters Date Type Department Care Team Description 07/06/2024 Telephone [facility] Gastroenterology at [address] [place] [address] Espinoza Salvador MD 06/29/2024 Results Follow-Up [facility] Nephrology at [address] [place] [address] Espinoza Salvador MD Basic metabolic panel, Iron profile w/ IBC, Hemoglobin and hematocrit, Additional followed-up results: 2 06/29/2024 Telephone [facility] Internal Medicine [address] [place] [address] Bruno Parekh MD Medical Question/Miscellane ous 06/15/2024 9:15 AM CDT Office Visit [facility] Nephrology at [address] [place] [address] Espinoza Salvador MD CRD (chronic renal disease), stage IV (HCC) (Primary Dx); Anemia in stage 4 chronic kidney disease (HCC); Benign hypertensive kidney disease with chronic kidney disease stage I through stage IV, or unspecified(403.10) ; Persistent proteinuria; Metabolic acidosis from Last 3 Months Immunizations Immunization Administration Dates Next Due COVID-19 MRNA (MODERNA) .5 M L (50 MCG) VACCINE (12 YEARS AND UP) 11/06/2023,04/27/2023 Influenza, Quad, Adjuvantate d, Intramuscular 10/31/2022 Influenza, Quadrivalent, Hig h Dose, Preservative Free, Intrr 10/16/2021,11/06/2020,11/16/2019 Influenza, Trivalent, Adjuva nted, Intramuscular 11/06/2023 Influenza, Trivalent, High D ose, Split, Preservative Free, Intramuscular 11/15/2018 Influenza, Unspecified 10/31/2022,2022(Deferred: Patient decision),11/06/2020 Moderna SARS-CoV-2 Monovalen t Vaccination (12+ YRS) 12/07/2020,04/02/2020 Moderna Sars-cov-2 Bivalent Vaccine 50 Mcg/0.5 mL (12+ YRS)-Blue/Betts 10/31/2021 Moderna Sars-cov-2 Monovalen t Booster Vaccination (12+ YRS) 11/19/2022 Pfizer Sars-Cov-2 Bivalent V accination (12+ YRS) 10/31/2021 Pneumococcal Conjugate PCV 13 08/03/2017 Pneumococcal Conjugate Pcv20 12/02/2023 Pneumococcal Polysaccharide PPV23 08/11/2018 RSV Vaccine, Pref, Recombina nt, Subunit, Adjuvanted, PF, IM (Arexvy) 11/25/2023 Tdap 02/20/2018 ZOSTER Recombinant 12/10/2018,08/11/2018 Surgical History Surgery Date Site/Laterality Comments MOLE REMOVAL cancerous mole removed on nose BASAL CELL CARCINOMA EXCISION 02/16/2018 - 02/15/2019 SKIN BIOPSY 03/19/2020 - 04/15/2020 lesion to abd, Rt cheek US ABDOMEN COMPLETE W LIVER DOPPLER (C) 08/11/2017 Right Medical History Medical History Date Comments ED (erectile dysfunction) Coronary artery disease Shortness of breath CHF (congestive heart failure) (HCC) Chronic renal failure Chronic kidney disease, stage IV (severe) (HCC) Heart disease Congestive heart failure Hyperlipidemia Hypertension Rheumatic fever had as a child Family History Medical History Relation Name Comments Cancer Father Deepak Suazo Colon cancer Father Deepak Suazo Pancreatic cancer Father Deepak Suazo Epilepsy Mother Relation Name Status Comments Father Deepak uSazo Mother Social History Tobacco Use Types Packs/Day Years Used Date Smoking Tobacco: Former Cigarettes 0.4 48.7 0 10/17/1969 - 06/13/2018 Smokeless Tobacco: Never Tobacco Cessation:Counseling Given: Not Answered Comments:8 cigarettes per day Alcohol Use Standard Drinks/Week Comments Yes 0 (1 standard drink = 0.6 oz pur e alcohol) socially AUDIT-C Answer Date Recorded Q1: How often do you have a drink containing alc ohol? Monthly or less 06/15/2024 Q2: How many drinks containi ng alcohol do you have on a typical day when you are drinking? 1 or 2 06/15/2024 Q3: How often do you have si x or more drinks on one occasion? Never 06/15/2024 PHQ-2 Answer Date Recorded PHQ-2 Total Score (If total score is 3 or more points, staff should administer the PHQ-9) 0 12/02/2023 Sex and Gender Information Value Date Recorded Sex Assigned at Not on file Legal Sex Male 8:43 PM CHIEF METER READER Gender Identity Male 06/21/2019 12:38 PM CDT Sexual Orientation Straight 06/21/2019 12 :38 PM CDT Obstetrics History Last Filed Vital Signs Vital Sign Reading Time Taken Comments Blood Pressure 101/63 06/15/2024 9:16 AM CDT Pulse 79 06/15/2024 9:16 AM CDT Temperature 36.3 C (97.4 F) 06/15/2024 9:16 AM CDT Respiratory Rate 18 06/01/2024 8:26 AM CDT Oxygen Saturation 97% 06/01/2024 8:26 AM CDT Inhaled Oxygen Concentration - - Weight 87.1 kg (192 lb) 06/15/2024 9:16 AM CDT Height 182.9 cm (6') 06/15/2024 9:16 AM CDT Body Mass Index 26.04 06/15/2024 9:16 AM CDT Plan of Treatment Health Maintenance Due Date Last Done Comments Hepatitis B Screening 1968 Covid-19 Vaccine (2023-03 5 season) 2024 11/06/2023, 04/27/2023, 11/19/2022, Additional history exists Colon Cancer Screening-Colonoscopy 08/24/2024 08/25/2019, 09/14/2014 Influenza Vaccine (#1) 2024 , 10/31/2022, 10/31/2022, Additional history exists Depression Screening 12/01/2024 12/02/2023, 05/29/2023, 11/21/2022, Additional history exists Fall Risk Assessment 12/01/2024 12/02/2023, 05/29/2023, 11/21/2022, Additional history exists Well Visit 65+ 12/01/2024 12/02/2023, 07/2022, 10/10/2020, Additional history exists DTaP/Tdap/Td Vaccine (2 - Td or Tdap) 02/21/2028 02/20/2018 Abdominal Aortic Aneurysm (A AA) Screen Completed 08/27/2017, 08/11/2017, 08/11/2017 Zoster Vaccine Completed 12/10/2018, 08/11/2018 Colon Cancer Screening-CT Colonography Discontinued 08/25/2019, 09/14/2014 Colon Cancer Screening-DNA Stool Discontinued 08/25/19 20, 09/14/2014 Colon Cancer Screening-FIT Discontinued 08/24, 06/17/2018, 09/14/2014 Colon Cancer Screening-Sigmoidoscopy Discontinued 08/25/2019, 09/14/2014 Hepatitis C Screening Completed 12/15/2022 Prostate Cancer Screening-PSA Discontinued , 06/10/2022, 02/21/2021, Additional history exists Pneumococcal vaccine 65+ Completed 024, 08/11/2018, 08/03/2017 Procedures Procedure Name Priority Date/Time Associated Diagnosis Comments RUBELLA IGG Routine 07/12/2024 9:28 AM CDT Immunity status testing MEASLES IGG ANTIBODY Routine 07/12/2024 9:26 AM CDT Immunity status testing MUMPS IGG ANTIBODY Routine 07/12/2024 9: 25 AM CDT Immunity status testing ALBUMIN CREATININE RATIO, URINE Routine 06/28/2024 8:09 AM CDT Anemia in stage 3b chronic kidney disease (HCC) PTH Routine 06/28/2024 8:09 AM CDT Anemia in stage 3b chronic kidney disease (HCC) HEMOGLOBIN AND HEMATOCRIT Routine 06/28/2024 8:09 AM CDT Anemia in stage 3b chronic kidney disease (HCC) IRON PROFILE W/ IBC Routine 06/28/2024 8 :09 AM CDT Anemia in stage 3b chronic kidney disease (HCC) BASIC METABOLIC PANEL Routine 06/28/2024 8:09 AM CDT Anemia in stage 3b chronic kidney disease (HCC) PSA SCREEN Routine 11/25/2023 8:04 AM CDT Prostate cancer screening HEPATITIS C ANTIBODY Routine 12/15/2022 8:18 AM CDT Encounter for hepatitis C screening test for low risk patient COLONOSCOPY Routine 08/25/2019 CT ABDOMEN PELVIS W WO CONTRAST Routine 08/27/2017 12:00 AM CDT from Last 3 Months or Most Recently Relevant to Health Maintenance Results * Rubella IgG antibody Blood (07/12/2024 9:28 AM CDT) Rubella IgG index 19.40 Immune >0.99 index [facility] - 01 Comment: Non-immune <0.90 Equivocal 0.90 - 0.99 Immune >0.99 Blood 07/12/2024 9:28 AM CDT 07/12/2024 Narrative [facility] - 07/13/2024 3:10 PM CDT Performed at: [facility] [id number] [employer]ber: Ellis Ferris PhD, Phone: [phone] Bruno Parekh MD LAB MICROBIOLOGY - GENERAL ORDERABLES Final Result Performing Organization Address City/State/[facility] de Phone Number [facility] - * Measles IgG antibody Blood (07/12/2024 9:26 AM CDT) [facility] Measles IgG >300.0 Immune >16.4 AU/mL [facility] - Comment: Negative <13.5 Equivocal 13.5 - 16.4 Positive >16.4 Presence of antibodies to Rubeola is presumptive evidence of immunity except when acute infection is suspected. Blood 07/12/2024 9:26 AM CDT 07/12/2024 Narrative [facility] - 07/13/2024 9:10 AM CDT Performed at: [address] [place] [id number] [employer]: Ellis Ferris PhD, Phone: [phone] Bruno Parekh MD LAB MICROBIOLOGY - GENERAL ORDERABLES Final Result Performing Organization Address [facility] de Phone Number [facility] * Mumps IgG antibody Blood (07/12/2024 9:25 AM CDT) [facility] Mumps IgG 90.6 Immune >10.9 AU/mL [facility] - Comment: Negative <9.0 Equivocal 9.0 - 10.9 Positive >10.9 A positive result generally indicates past exposure to Mumps virus or previous vaccination. Blood 07/12/2024 9:25 AM CDT 07/12/2024 Narrative [facility] - 07/13/2024 9:10 AM CDT Performed at: [address] [place] [id number] [employer]: Ellis Ferris PhD, Phone: [phone] Bruno Parekh MD LAB MICROBIOLOGY - GENERAL ORDERABLES Final Result Performing Organization Address [facility] de Phone Number [facility] - * (ABNORMAL) Iron profile w/ IBC (06/28/2024 8:09 AM CDT) [facility] Iron Bind.Cap.(TIBC) 246(L) 250 - 450 ug/dL [facility] - 01 UIBC 194 111 - 343 ug/dL [facility] - 01 Iron 52 38 - 169 ug/dL [facility] - 01 Iron saturation 21 15 - 55 % [facility] - 01 Blood 06/28/2024 8:09 AM CDT 06/28/2024 Narrative [facility] - 06/29/2024 7:09 AM CDT Performed at: [address] [place] [id number] [employer]: Ellsi Ferris PhD, Phone: [phone] Espinoza Salvador MD LAB BLOOD ORDERABLES Final Re sult Performing Organization Address [facility]/ZIP Co de Phone Number [facility] * (ABNORMAL) Hemoglobin and hematocrit (06/28/2024 8:09 AM CDT) [facility] Hgb 10.7(L) 13.0 - 17.7 g/dL [facility] - 01 Hct 33.6(L) 37.5 - 51.0 % [facility] - 01 Blood 06/28/2024 8:09 AM CDT 06/28/2024 Narrative [facility] - 06/29/2024 7:09 AM CDT Performed at: [address] [place] [id number] [employer]: Ellis Ferris PhD, Phone: [phone] Espinoza Salvador MD LAB BLOOD ORDERABLES Final Re sult Performing Organization Address City/[facility]/ZIP Co de Phone Number [facility] - * (ABNORMAL) Albumin Creatinine Ratio, Urine (06/28/2024 8:09 AM CDT) [facility] Creatinine ur 79.1 Not Estab. mg/dL [facility] - 01 Microalbumin, ur 662.5 Not Estab. ug/mL [facility] - 01 Comment: Results confirmed on dilution. Microalbumin/cr eat ratio 838(H) 0 - 29 mg/g creat [facility] - 01 Comment: Normal: 0 - 29 Moderately increased: 30 - 300 Severely increased: >300 Urine 06/28/2024 8:09 AM CDT 06/28/2024 Narrative [facility] - 06/29/2024 10:36 AM CDT Performed at: [address] [id number] [employer]: Ellis Ferris PhD, Phone: [phone] Espinoza Salvador MD LAB URINE ORDERABLES Final Re sult Performing Organization Address City/[facility]/ZIP Co de Phone Number [facility] * (ABNORMAL) PTH (06/28/2024 8:09 AM CDT) Pathologist [facility] PTH Intact 101(H) 15 - 65 pg/mL [facility] - 01 Blood 06/28/2024 8:09 AM CDT 06/28/2024 Narrative [facility] - 06/29/2024 9:10 AM CDT Performed at: [address] [id number] [employer]: Ellis Ferris PhD, Phone: [phone] us Espinoza Salvador MD LAB BLOOD ORDERABLES Final Re sult Performing Organization Address [facility]/ZIP Co de Phone Number [facility] - * (ABNORMAL) Basic metabolic panel (06/28/2024 8:09 AM CDT) Glucose 103(H) 70 - 99 mg/dL [facility] - 01 BUN 55(H) 8 - 27 mg/dL [facility] - 01 Creatinine, Serum 2.91(H) 0.76 - 1.27 mg/dL [facility] - 01 eGFR 22(L) >59 mL/min/1.7 3 [facility] - 01 BUN/creat ratio 19 10 - 24 [facility] - 01 Sodium 139 134 - 144 mmol/L [facility] - 01 Potassium, sr 5.1 3.5 - 5.2 mmol/L [facility] - 01 Chloride 107(H) 96 - 106 mmol/L [facility] - 01 CO2 20 20 - 29 mmol/L [facility] - 01 Calcium 8.8 8.6 - 10.2 mg/dL [facility] - 01 Blood 06/28/2024 8:09 AM CDT 06/28/2024 Narrative [facility] - 06/29/2024 7:09 AM CDT Performed at: [address] [id number] [employer]: Ellis Ferris PhD, Phone: [phone] us Espinoza Salvador MD LAB BLOOD ORDERABLES Final Re sult Performing Organization Address [facility] de Phone Number [facility] * PSA screen (11/25/2023 8:04 AM CDT) [facility] PSA 2.3 0.0 - 4.0 ng/mL [facility] - Comment: Leticia ECLIA methodology. According to the [place] [employer], Serum PSA should decrease and remain at undetectable levels after radical prostatectomy. The AUA defines biochemical recurrence as an initial PSA value 0.2 ng/mL or greater followed by a subsequent confirmatory PSA value 0.2 ng/mL or greater. Values obtained with different assay methods or kits cannot be used interchangeably. Results cannot be interpreted as absolute evidence of the presence or absence of malignant disease. Blood 11/25/2023 8:04 AM CDT 11/25/2023 Narrative [facility] - 11/26/2023 3:09 PM CDT Performed at: [address] [id number] [employer]: Ellis Ferris PhD, Phone: [phone] Bruno Parekh MD LAB BLOOD ORDERABLES Final Result Performing Organization Address [facility] de Phone Number [facility] * Hepatitis C antibody Blood (12/15/2022 8:18 AM CDT) Hep C Ab Non Reactive Non Reactive [facility] - 01 Comment: HCV antibody alone does not differentiate between previously resolved infection and active infection. Equivocal and Reactive HCV antibody results should be followed up with an HCV RNA test to support the diagnosis of active HCV infection. Blood 12/15/2022 8:18 AM CDT 12/15/2022 Narrative [facility] - 12/16/2022 7:10 AM CDT Performed at: 01 - [address] [id number] [employer]: Ellis Ferris PhD, Phone: [phone] Bruno Parekh MD LAB MICROBIOLOGY - GENERAL ORDERABLES Final Result [facility] - 01 * Colonoscopy (08/25/2019) Anatomical Region Laterality Modality Other Narrative 08/25/2019 Colonoscopy recommended in 5 years Historical Provider ENDOSCOPY PROCEDURES Bhavana l Result * CT Abdomen Pelvis W WO Contrast (08/27/2017 12:00 AM CDT) Anatomical Region Laterality Modality Body N/A Computed Tomogra phy 08/27/2017 Impressions 08/27/2017 1:49 PM CDT 1.Minimal areas of incomplete opacification of the ureters, otherwise normal. No concerning areas of mass or wall thickening. 2.Urinary bladder is not optimally distended but with no identified abnormalities. 3.Renal cysts. 4.Colonic diverticulosis. 5.2.1 centimeter right common iliac artery aneurysm. THIS IS AN ELECTRONICALLY VERIFIED FINAL REPORT 08/27/2017 1:46 PM - Electronically signed by Arden Lora M.D. CH: CH[facility]ST[facility] Report ID: [id number] Reading Location: [id number] [EOD] Narrative 08/27/2017 1:49 PM CDT EXAM DESCRIPTION: CT Abd W WO/Pelvis W IV Cont REASON FOR STUDY: Hematuria unspecified, blood in urine for 3 weeks. Peyronie's disease status post surgery 2013. TECHNIQUE: Precontrast images of the abdomen. Abdomen and pelvis images with intravenous and without oral contrast using helical scanning technique with dynamic intravenous contrast injection. Corticomedullary, nephrogenic, excretory phase images were acquired. Reconstructed coronal and sagittal MPR images reviewed. All images stored on PACS. Automated exposure control was used as a dose optimization technique for this examination. CONTRAST TYPE/DOSE: 100 mL of Optiray 350 contrast were intravenously injected at the left antecubital. COMPARISON: None. FINDINGS: URINARY TRACT: KIDNEYS: No renal calculi or proximal ureteral calculi are identified. No enhancing solid mass. There are low-attenuation renal lesions, the largest is from the upper pole right kidney 3.5 cm, this is fluid attenuation and evidence of a cyst. Additional subcentimeter lesions are noted. Although many of these are too small for definitive characterization, no obvious enhancing lesion. During the excretory phase, the kidneys excrete the contrast symmetrically. URETERS AND BLADDER: During the corticomedullary phase, no ureteral calculi are identified. There is contrast excretion opacifying the collecting system and ureters symmetrically. There is of minimal incomplete opacification along the ureters, for example where the ureters transition over the iliac vasculature, but no filling defects or mass is seen. No abnormal urothelial thickening. The right ureterovesicular junction is not optimally opacified. The left ureterovesicular junction is within normal limits. There is mild irregularity of the urinary bladder wall, but this is not optimally distended for assessment. ABDOMEN/PELVIS: LOWER CHEST: Lung bases are clear. There is no pleural effusion. LIVER: No focal hepatic lesion. GALLBLADDER: No gallstones or inflammatory change. BILE DUCTS: No biliary ductal dilatation. SPLEEN: Normal spleen size. No focal lesion. PANCREAS: No pancreatic mass or inflammatory change. ADRENALS: Normal. GI: No renal calculi or hydronephrosis. Moderate sigmoid colon diverticulosis. No evidence of acute diverticulitis. The terminal ileum and appendix are normal. PERITONEUM: No ascites or free air. RETROPERITONEUM: No retroperitoneal mass or pathologic lymphadenopathy. REPRODUCTIVE: Unremarkable. VASCULATURE:Abdominal aorta is non aneurysmal. There is moderate atherosclerotic calcification of the abdominal aorta. The right common iliac artery is 2.1 cm and the left common iliac artery is 1.3 cm. MUSCULOSKELETAL: Bone windows demonstrate no acute or aggressive osseous abnormality. OTHER: No other abnormality. Procedure Note Provider, MD Briseida - 07/03/2020 EXAM DESCRIPTION: CT Abd W WO/Pelvis W IV Cont REASON FOR STUDY: Hematuria unspecified, blood in urine for 3 weeks. Peyronie's disease status post surgery 2013. TECHNIQUE: Precontrast images of the abdomen. Abdomen and pelvis imageswith intravenous and without oral contrast using helical scanning techniquewith dynamic intravenous contrast injection. Corticomedullary, nephrogenic, excretory phase images were acquired. Reconstructed coronal and sagittalMPR images reviewed. All images stored on PACS. Automated exposure control was used as a dose optimization technique forthis examination. CONTRAST TYPE/DOSE: 100 mL of Optiray 350 contrast were intravenously injected at the left antecubital. COMPARISON: None. FINDINGS: URINARY TRACT: KIDNEYS: No renal calculi or proximal ureteral calculi are identified. No enhancing solid mass. There are low-attenuation renal lesions, thelargest is from the upper pole right kidney 3.5 cm, this is fluid attenuation and evidence of a cyst. Additional subcentimeter lesions are noted. Although many of these are too small for definitive characterization, no obvious enhancing lesion. During the excretory phase, the kidneys excrete the contrast symmetrically. URETERS AND BLADDER: During the corticomedullary phase, no ureteralcalculi are identified. There is contrast excretion opacifying the collectingsystem and ureters symmetrically. There is of minimal incomplete opacificationalong the ureters, for example where the ureters transition over the iliac vasculature, but no filling defects or mass is seen. No abnormalurothelial thickening. The right ureterovesicular junction is not optimallyopacified. The left ureterovesicular junction is within normal limits. There is mild irregularity of the urinary bladder wall, but this is not optimallydistended for assessment. ABDOMEN/PELVIS: LOWER CHEST: Lung bases are clear. There is no pleural effusion. LIVER: No focal hepatic lesion. GALLBLADDER: No gallstones or inflammatory change. BILE DUCTS: No biliary ductal dilatation. SPLEEN: Normal spleen size. No focal lesion. PANCREAS: No pancreatic mass or inflammatory change. ADRENALS: Normal. GI: No renal calculi or hydronephrosis. Moderate sigmoid colon diverticulosis. No evidence of acute diverticulitis. The terminal ileumand appendix are normal. PERITONEUM: No ascites or free air. RETROPERITONEUM: No retroperitoneal mass or pathologic lymphadenopathy. REPRODUCTIVE: Unremarkable. VASCULATURE:Abdominal aorta is non aneurysmal. There is moderate atherosclerotic calcification of the abdominal aorta. The right commoniliac artery is 2.1 cm and the left common iliac artery is 1.3 cm. MUSCULOSKELETAL: Bone windows demonstrate no acute or aggressive osseous abnormality. OTHER: No other abnormality. IMPRESSION: 1.Minimal areas of incomplete opacification of the ureters, otherwisenormal. No concerning areas of mass or wall thickening. 2.Urinary bladder is not optimally distended but with no identified abnormalities. 3.Renal cysts. 4.Colonic diverticulosis. 5.2.1 centimeter right common iliac artery aneurysm. THIS IS AN ELECTRONICALLY VERIFIED FINAL REPORT 08/27/2017 1:46 PM - Electronically signed by Arden Lora M.D. CH: CHRISTOS Report ID: [id number] Reading Location: [place] [id number] [EOD] Skyla Thomas NP IMG CT PROCEDURES Final Result from Last 3 Months or Most Recently Relevant to Health Maintenance Insurance MEDICARE [facility]ond[facility]i [facility] MEDICARE [employer] [facility] Care Teams Culinary Director Relationship Specialty Start Date End Date Bruno Parekh MD [facility] [address] [place] [address] [place] [id number] PCP - General Internal Medicine 12/16/23 Bruno Parekh MD [address] [place] [address] Consulting Physician Internal Medicine 12/16/23
--- OUTSIDE RECORDS SUMMARY | 2024-09-13 01:58 | XMS_ITS | Encounter Summary ---
Author Organization [facility] Address [address] [facility] [facility] [place] [address] Care Team Providers Care Pv Installer Tech Name Role Phone Unavailable Primary Care Provider Unavailabl e Encounter Details Date Type Department Care Team (Late st Contact Info) Description 06/30/2018 Lab Requisition [facility] [address] [facility] [place] [id number] Yola Dawson DO [address] [facility] [address] [place] [address] Social History Tobacco Use Types Packs/Day Years Used Date Smoking Tobacco: Never Assessed Sex and Gender Information Value Date Recorded Sex Assigned at Not on file Legal Sex Male 10:09 AM CDT Gender Identity Not on file Sexual Orientation Not on file documented as of this encounter Plan of Treatment Not on file documented as of this encounter Procedures Procedure Name Priority Date/Time Associated Diagnosis Comments DERMATOPATHOLOGY Routine 06/29/2018 12:0 0 AM CDT documented in this encounter Results * DERMATOPATHOLOGY (06/29/2018 12:00 AM CDT) Case Report Dermatopathology Report Case: [id number] Authorizing Provider: Yola Dawson DO Collected: 06/29/2018 12:00 AM Pathologist: Gio Bui MD Received: 06/30/2018 06:35 AM Specimens: A) - Skin, left nasal SW B) - Skin, left flank 9 4:22 PM CDT DERMATOPATHOLOGY LABORATORY Final Diagnosis Specimen A. SKIN, left nasal SW: BASAL CELL CARCINOMA, NODULAR TYPE (C44.311) Specimen B. SKIN, left flank: HEMORRHAGE WITHIN THE CORNIFIED LAYER (CHANGES TYPICAL OF BLOOD BLISTER) (R23.3) 9 4:22 PM CDT DERMATOPATHOLOGY LABORATORY at 1622 CDT Clinical History A: BCC. B: Ang-K vs infarcted tag vs other. 9 4:22 PM CDT DERMATOPATHOLOGY LABORATORY Gross Description Specimen A: Received is one formalin filled container labeled with the patient's name and designated left nasal SW. The specimen consists of a shave measuring [id number]. Jar 0. Specimen B: Received is one formalin filled container labeled with the patient's name and designated left flank. The specimen consists of a shave measuring [id number]. Jar 0. 9 4:22 PM CDT DERMATOPATHOLOGY LABORATORY Microscopic Description Specimen A. SKIN, left nasal SW: Within the dermis there are aggregates of basaloid cells with a high nuclear to cytoplasmic ratio and peripheral palisading. Specimen B. SKIN, left flank: Sections show degraded red cells in the cornified layer. 9 4:22 PM CDT DERMATOPATHOLOGY LABORATORY Disclaimer An external and internal positive and negative controls are appropriate for the histochemical, immunohistochemical and immunofluorescence stain(s) in this case (if any), except where stated explicitly. The performance characteristics of the stain(s) cited in this report were developed and its performance characteristic determined by the Dermatopathology Laboratory at [facility], directed by Dr. Umair Bui. These tests need not be, and therefore are not, approved by the [place] Food and Drug Administration. The tests are used for clinical purposes. Billing Codes Specimen Charges Stain Charges 42053 66966 1 1 9 4:22 PM CDT DERMATOPATHOLOGY LABORATORY Embedded Images 9 4:22 PM CDT DERMATOPATHOLOGY LABORATORY Pathology/Cytology TISSUE SPECIMEN FROM SKIN / Unknown 06/29/2018 06/30/2018 6:35 AM CDT Miscellaneous samples (specimen) TISSUE SPECIMEN FROM SKIN / Unknown 06/29/2018 06/30/2018 6:35 AM CDT us Yola Dawson DO LAB - PATHOLOGY/CYTOLOGY ORDERABLES Final Result DERMATOPATHOLOGY LABORATORY [facility] - Department of Dermatology [address] [facility]th [address] Lab B [address] [phone] documented in this encounter Visit Diagnoses Not on filedocumented in this encounter
--- OUTSIDE RECORDS SUMMARY | 2024-09-13 01:58 | XMS_ITS | Clinical Summary ---
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 Gender Identity Not on file Sexual Orientation Not on file Plan of Treatment Health Maintenance Due Date Last Done Comments Hepatitis C Virus (HCV) Screening 1950 TdaP Immunization 1950 Cologuard 1997 Colonoscopy 1997 Colorectal Cancer Screening 1997 Immunochemical Fecal Occult Blood 1997 Zoster Immunization (2 of 2) 10/06/2018 08/11/2018 SARS-COV-2 Immunization ( season) 2023 12/07/2020, 04/30/2020, 04/02/2020 Influenza Immunization (#1) 10/17/202410/18, 11/16/2019, 11/15/2018 Respiratory Syncytial Virus (RSV) Immunization (Adult) (1 - 1-dose 75+ series) 2027 Pneumococcal Immunization (5 0+ years) Completed 08/11/2018, 08/03/2017 Hepatitis B Immunization Aged Out No longer eligible based on patient's age to complete this topic Human Papillomavirus (HPV) Immunization Aged Out No longer eligible b ased on patient's age to complete this topic Meningococcal Immunization (ACWY) Aged Out No longer eligible b ased on patient's age to complete this topic Rotavirus Immunization Aged Out No lo nger eligible based on patient's age to complete this topic
--- OUTSIDE RECORDS SUMMARY | 2024-09-13 01:58 | XMS_ITS | Continuity of Care Document ---
Author Organization [facility] Address [address] [place] [address] Phone Care Team Providers Care Hammer Adjuster Name Role Phone Anurag PTMauricio Unavailable Unavailable Procedures Procedure Date Neuromuscular Re-Ed Therapeutic Activities PT Re-evaluation Neuromuscular Re-Ed Therapeutic Activities Therapeutic Activities Neuromuscular Re-Ed Therapeutic Exercise Therapeutic Activities Neuromuscular Re-Ed Therapeutic Exercise Hot or Cold Pack Therapeutic Exercise Neuromuscular Re-Ed Therapeutic Activities Therapeutic Exercise Neuromuscular Re-Ed Therapeutic Activities Therapeutic Activities Neuromuscular Re-Ed Therapeutic Exercise Therapeutic Activities Neuromuscular Re-Ed Therapeutic Exercise Therapeutic Activities Neuromuscular Re-Ed Therapeutic Exercise Manual Therapy Hot or Cold Pack Therapeutic Exercise Neuromuscular Re-Ed PT Evaluation Low Complexity Advance Directives Directive Yes / No Effective Date File Name No Information Encounters Encounter Description Practice Location Reason(s) For Visit Diagnoses Date Provider Providers Copied on Encounter [facility], [address], [place], [place], [id number], [place] tel:[phone] Annamaria No Information 1 Dellamano Mauricio. . Referring Provider: Aleta Enriquez [facility] [address], [place], [address]. tel:[phone] [place] [address] [place], [place] [address], [place], [place], [id number], tel:[phone] Annamaria No Information 1 Dellamano Mauricio. . Referring Provider: Aleta Enriquez [facility] [address], [place], [address]. tel:[phone] [place] [address] [address], [place], [place], [id number], tel:[phone] Annamaria No Information 1 Dellamano Mauricio. . Referring Provider: Aleta Enriquez [facility] [address], [place], [address]. tel:[phone] [place] [address] [facility] [address], [place], [place], [id number], [place] tel:[phone] [place] No Information 1 Dellamano Mauricio. . Referring Provider: Aleta Enriquez [facility] [address], [place], [address]. tel:[phone] [place], [place] [address], [place], [place], [id number], tel:[phone] [place] No Information 0 1 Estefanía Childs. . Referring Provider: Aleta Enriquez [facility] [address], [place], [address]. tel:[phone] [place] [address] [facility] [address], [place], [place], [id number], [place] tel:[phone] [place] No Information 0 1 Dellamano Mauricio. . Referring Provider: Aleta Enriquez [facility] [address], [place], [address]. tel:[phone] [facility] [address] [address], [place], [place], [id number], tel:[phone] [place] No Information 1 Anurag Martínez. . Referring Provider: Aleta Enriquez [facility] [address], [place], [address]. tel:[phone] [facility] [address] [place] [address], [place], [place], [id number], tel:[phone] [place] No Information 1 Dellamano Mauricio. . Referring Provider: Aleta Enriquez [facility] [address], [place], [address]. tel:[phone] [facility] [address] [place], [place] [address], [place], [place], [id number], tel:[phone] [place] No Information 1 Estefanía Childs. . Referring Provider: Aleta Enriquez [facility] [address], [place], [address]. tel:[phone] [facility] [address] [place] [address], [id number], tel:[phone] [place] No Information 1 Dellamano Mauricio. . Referring Provider: Aleta Enriquez [facility] [address], [place], [address]. tel:[phone] Family History Family Member Type Diagnosis Age At Onset No Information Payers Payer name Insurance type Covered constitution party ID Maxim daniels(s) [employer] [place] [id number] [facility] Medicare Supplement CI [id number] Social History Type Description Quantity Date Captured Comments Alcohol Use Details Unknown Caffeine Use Details Unknown Tobacco Use Status Current non-smoker Smoking Status Never smoker Non-Smoking Tobacco Use Details : No Details Available : No Details Available : No Details Available : No Details Available Sex Male Chief Complaint And Reason For Visit No Information Reason For Referral Reason For Referral No Information History Of Present Illness Encounter Date Complaint History Of Prese nt Illness No Information Functional Status Date Functional Assessmen t No Information Instructions Date Instruction Additional Infor mation No Information Assessments Type Assessment Date No Information Patient Care Teams Name Effective Dates (start - stop) Status Members No Information
--- OUTSIDE RECORDS SUMMARY | 2024-09-13 01:58 | XMS_ITS | Referral Summary ---
Author Organization [facility] Address [address] [place] [address] Care Team Providers Care Community Health Nursing Director Name Role Phone Bruno Parekh MD Primary Care Provider [phone] Bruno Parekh MD Unavailable [phone] Encounters Date Type Department Care Team Description 07/06/2024 Telephone [facility] Gastroenterology at [address] [place] [address] Espinoza Salvador MD 06/29/2024 Results Follow-Up [facility] Nephrology at [address] [place] [phone] Espinoza Salvador MD Basic metabolic panel, Iron profile w/ IBC, Hemoglobin and hematocrit, Additional followed-up results: 2 06/29/2024 Telephone [facility] Internal Medicine [address] [facility] [address] [place] [phone] Bruno Parekh MD Medical Question/Miscellane ous 06/15/2024 9:15 AM CDT Office Visit [facility] Nephrology at [address] [place] [phone] Espinoza Salvador MD CRD (chronic renal disease), stage IV (HCC) (Primary Dx); 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 He was seen by disintegrator operator in the past. Will make him a referral to see a disintegrator operator. BMI 25.0-25.9,adult 05/22/2022 Bilateral lower extremity edema [...] monitor Assessment & Plan (04/12/2021 8:58 AM FILENET ARCHITECT): Continue current medications. Discussed low-salt diet. Discussed exercise on regular basis. Will continue to monitor Assessment & Plan (10/10/2020 8:01 AM CDT): Continue current medications. Discussed low-salt diet. Discussed exercise on regular basis. Will continue to monitor Assessment & Plan (04/11/2020 11:28 AM FILENET ARCHITECT): Continue current medications. Discussed low-salt diet. Discussed exercise on regular basis. Will continue to monitor Assessment & Plan (10/06/2019 9:43 AM CDT): Continue current medications. Discussed low-salt diet. Discussed exercise on regular basis. Will continue to monitor Assessment & Plan (04/07/2019 12:24 PM FILENET ARCHITECT): Continue current medications. Discussed low-salt diet. Discussed exercise on regular basis. Will continue to monitor Assessment & Plan (01/05/2019 12:29 PM FILENET ARCHITECT): Continue current medications. Discussed low-salt diet. Discussed exercise on regular basis. Will continue to monitor Anemia in stage 4 chronic kidney disease 019 Assessment & Plan (06/01/2024 7:29 AM CDT): Managed by the quality assurance tester Assessment & Plan (05/22/2022 7:44 AM CDT): Managed by the quality assurance tester Assessment & Plan (04/12/2021 8:57 AM FILENET ARCHITECT): Mild anemia secondary to chronic kidney disease. It is stable and followed by the quality assurance tester Assessment & Plan (10/10/2020 8:01 AM CDT): Managed by the quality assurance tester Assessment & Plan (10/06/2019 9:43 AM CDT): Patient is maintained on Ritacrit injections by the quality assurance tester Assessment & Plan (01/05/2019 12:28 PM FILENET ARCHITECT): The patient has chronic anemia secondary to chronic kidney disease and he is on Epogen shots and followed by the quality assurance tester Simple chronic bronchitis 11/15/2018 Assessment & Plan [...] smoking Assessment & Plan (04/11/2020 11:28 AM FILENET ARCHITECT): Asymptomatic Assessment & Plan (10/06/2019 9:43 AM CDT): Asymptomatic Assessment & Plan (04/07/2019 12:23 PM FILENET ARCHITECT): Asymptomatic and he quit smoke Assessment & Plan (01/05/2019 12:29 PM FILENET ARCHITECT): The patient is asymptomatic. He stopped Symbicort. [...] (06/01/2024 7:29 AM CDT): Managed by the quality assurance tester Assessment & Plan (12/02/2023 7:40 AM CDT): Managed by the quality assurance tester Assessment & Plan (05/29/2023 7:46 AM CDT): Managed by the quality assurance tester Assessment & Plan (11/21/2022 7:50 AM CDT): Managed by the quality assurance tester Assessment & Plan (05/22/2022 7:45 AM CDT): Managed by the quality assurance tester Assessment & Plan (11/20/2021 7:51 AM CDT): Managed by the quality assurance tester Assessment & Plan (04/12/2021 8:57 AM FILENET ARCHITECT): Managed by the quality assurance tester Assessment & Plan (10/10/2020 8:01 AM CDT): Managed by the quality assurance tester Assessment & Plan (04/11/2020 11:28 AM FILENET ARCHITECT): Managed by the quality assurance tester Assessment & Plan (10/06/2019 9:43 AM CDT): Managed by the quality assurance tester Assessment & Plan (04/07/2019 12:24 PM FILENET ARCHITECT): Followed by the quality assurance tester Assessment & Plan (01/05/2019 12:29 PM FILENET ARCHITECT): Managed by the quality assurance tester NSVT (nonsustained ventricular tachycardia) 08/17 Persistent proteinuria [...] 2021 Assessment & Plan (04/12/2021 8:58 AM FILENET ARCHITECT): Will obtain CT of the lungs for further evaluation Assessment & Plan (10/06/2019 9:43 AM CDT): Stable pulmonary nodules in October 2018 Assessment & Plan (04/07/2019 12:23 PM FILENET ARCHITECT): Stable pulmonary nodule in October 2018 Assessment & Plan (01/05/2019 12:27 PM FILENET ARCHITECT): No change in pulmonary nodule on CT [...] is euvolemic. Continue Lasix. Followed by the concreter Assessment & Plan (12/02/2023 7:39 AM CDT): Patient is euvolemic. Continue Lasix. Followed by the concreter Assessment & Plan (05/29/2023 7:46 AM CDT): Patient is euvolemic. Continue Lasix. Followed by the concreter Assessment & Plan (11/21/2022 7:50 AM CDT): Patient is euvolemic. Continue Lasix. Followed by the concreter Assessment & Plan (05/22/2022 7:45 AM CDT): Patient is euvolemic. Continue Lasix. Followed by the concreter Assessment & Plan (11/20/2021 7:50 AM CDT): Continue medical treatment and low-salt diet Assessment & Plan (04/12/2021 8:57 AM FILENET ARCHITECT): Continue Lasix Assessment & Plan (04/11/2020 11:27 AM FILENET ARCHITECT): Patient is euvolemic. Continue low-salt diet and Lasix p.r.n. Assessment & Plan (10/06/2019 9:43 AM CDT): Patient is euvolemic. He is asymptomatic. Assessment & Plan (04/07/2019 12:23 PM FILENET ARCHITECT): Patient is asymptomatic Assessment & Plan (01/05/2019 12:28 PM FILENET ARCHITECT): Asymptomatic and followed by the Cardiology Assessment & Plan (11/15/2018 9:06 AM CDT): Continue current diuretics and low-salt diet Assessment & Plan (10/05/2018 12:23 PM CDT): The patient is stable on current medications and he has follow-up with the concreter with echocardiogram Assessment & Plan (07/05/2018 12:23 PM CDT): Continue low-salt diet. He will take Lasix p.r.n.. The patient weighs himself daily. Patient will start cardiac rehab. Patient is followed by the concreter. Pure hypercholesterolemia 06/29/2018 Assessment & Plan (12/02/2023 [...] . Assessment & Plan (04/12/2021 8:57 AM FILENET ARCHITECT): Controlled on current medications. Continue low-fat diet. Will continue to monitor . Assessment & Plan (10/10/2020 8:01 AM CDT): Controlled on current medications. Continue low-fat diet. Will continue to monitor . Assessment & Plan (04/11/2020 11:26 AM FILENET ARCHITECT): Controlled on current medications. Continue low-fat diet. Will continue to monitor . Assessment & Plan (10/06/2019 9:42 AM CDT): Controlled on current medications. Continue low-fat diet. Will continue to monitor . Assessment & Plan (04/07/2019 12:22 PM FILENET ARCHITECT): Controlled on current medications. Continue low-fat diet. Will continue to monitor . Assessment & Plan (01/05/2019 12:27 PM FILENET ARCHITECT): Controlled on current medications. Continue low-fat diet. Will continue to monitor . Assessment & Plan (10/05/2018 12:24 PM CDT): Controlled on current medications. Continue low-fat diet. Will continue to monitor . Non-rheumatic mitral regurgitation 06/29/2018 Assessment & Plan (04/07/2019 12:23 PM FILENET ARCHITECT): Asymptomatic and followed by the Cardiology Assessment & Plan (01/05/2019 12:27 PM FILENET ARCHITECT): Asymptomatic and followed by the Cardiology Assessment & Plan (10/05/2018 12:24 PM CDT): Asymptomatic and followed by the concreter Coronary artery disease invo lving hopi coronary artery of hopi heart without angina pectoris 06/29/2018 Assessment & Plan (06/01/2024 7:29 AM CDT): Controlled on medical treatment and followed by the concreter Assessment & Plan (12/02/2023 7:39 AM CDT): Controlled on medical treatment and followed by the concreter Assessment & Plan (05/29/2023 7:46 AM CDT): Controlled on medical treatment and followed by the concreter Assessment & Plan (11/21/2022 7:50 AM CDT): Controlled on medical treatment and followed by the concreter Assessment & Plan (05/22/2022 7:45 AM CDT): Controlled on medical treatment and followed by the concreter Assessment & Plan (11/20/2021 7:49 AM CDT): Controlled on medical treatment and followed by the concreter Assessment & Plan (04/12/2021 8:57 AM FILENET ARCHITECT): Patient is maintained on medical treatment. He is asymptomatic. He had recent stress test. He is followed by the concreter Assessment & Plan (10/10/2020 8:01 AM CDT): Continue medical treatment. He is maintained on aspirin. Follow-up with concreter Assessment & Plan (04/11/2020 11:27 AM FILENET ARCHITECT): Stable on medical treatment and followed by the concreter Assessment & Plan (10/06/2019 9:42 AM CDT): Patient is asymptomatic. He has mild coronary artery disease. He is on Plavix. Assessment & Plan (04/07/2019 12:23 PM FILENET ARCHITECT): Patient has mild coronary artery disease he is stable on current medications and followed by the Cardiology Assessment & Plan (01/05/2019 12:27 PM FILENET ARCHITECT): The patient has mild coronary artery disease and controlled with medications Assessment & Plan (11/15/2018 9:06 AM CDT): The patient is controlled on medical treatment Assessment & Plan (10/05/2018 12:24 PM CDT): The patient will continue with medical treatment and he is followed by the concreter Assessment & Plan (07/05/2018 12:22 PM CDT): The patient has 2 vessel coronary artery disease and he is maintained on aspirin and he is followed by the concreter Nonischemic cardiomyopathy 06/29/2018 Assessment & Plan (06/01/2024 7:30 AM CDT): Patient is euvolemic. He will continue with current medications. He is followed by the concreter Assessment & Plan (05/29/2023 7:47 AM CDT): Patient is euvolemic. He will continue with current medications. He is followed by the concreter Assessment & Plan (10/06/2019 9:42 AM CDT): Patient is euvolemic. He will continue with current medications. He is followed by the concreter Assessment & Plan (04/07/2019 12:23 PM FILENET ARCHITECT): The patient is euvolemic and he is maintained on diuretics and low aspect Assessment & Plan (01/05/2019 12:27 PM FILENET ARCHITECT): The patient is asymptomatic and followed by the concreter Assessment & Plan (11/15/2018 9:06 AM CDT): Patient is stable and ejection fraction improved to 45% Assessment & Plan (10/05/2018 12:24 PM CDT): The patient wears the life vest and he will have echocardiogram and further recommendations will be after that. Assessment & Plan (07/05/2018 12:22 PM CDT): Continue carvedilol and lisinopril. And the patient is followed by the concreter. We discussed low-salt diet. The patient will start cardiac rehab BMI 24.0-24.9, adult 06/02/2018 Allergic rhinitis 01/26/2018 Erectile dysfunction 08/04/2017 Bronchitis 08/27/2014 Hematuria 10/30/2013 Sciatica 10/30/2013 Peyronie disease 07/21/2013 Headache 05/04/2013 Facial cellulitis 04/17/2013 Hand pain, left 01/11/2013 Resolved Problems Problem Noted Date Diagnosed Date Resolved Date Tobacco dependence 02/19/2018 0 Assessment & Plan (01/05/2019 12:27 PM FILENET ARCHITECT): The patient quit smoking I believe in [...] maintained on Chantix with no side effects. Immunizations Immunization Administration Dates Next Due COVID-19 [...] (Arexvy) 11/25/2023 Tdap 02/20/2018 ZOSTER Recombinant 12/10/2018,08/11/2018 Social History Tobacco Use Types Packs/Day Years [...] on file Legal Sex Male 8:43 PM FILENET ARCHITECT Gender Identity Male 06/21/2019 12:38 PM CDT Sexual Orientation Straight 06/21/2019 12 :38 PM CDT Last Filed Vital Signs Vital Sign Reading [...] 06/15/2024 9:16 AM CDT Plan of Treatment Not on file Procedures Procedure Name Priority Date/Time Associated Diagnosis [...] - 07/13/2024 3:10 PM CDT Performed at: [address] [place] [address] [id number] Outdoor Education Teacher: Ellis Ferris PhD, Phone: [phone] us Bruno Parekh MD LAB MICROBIOLOGY - GENERAL ORDERABLES Final Result [facility] - 01 * Measles IgG antibody Blood (07/12/2024 9:26 AM CDT) Measles IgG >300.0 Immune >16.4 AU/mL [facility] - 01 Comment: Negative <13.5 Equivocal 13.5 - 16.4 Positive >16.4 Presence of antibodies to Rubeola is presumptive evidence of immunity except when acute infection is suspected. Blood 07/12/2024 9:26 AM CDT 07/12/2024 Narrative [facility] - 07/13/2024 9:10 AM CDT Performed at: [address] [place] [address] [id number] Outdoor Education Teacher: Ellis Ferris PhD, Phone: [phone] Bruno Parekh MD LAB MICROBIOLOGY - GENERAL ORDERABLES Final Result Performing Organization Address [facility] de Phone Number [facility] - * Mumps IgG antibody Blood (07/12/2024 9:25 AM CDT) [facility] Mumps IgG 90.6 Immune >10.9 AU/mL [facility] - 01 Comment: Negative <9.0 Equivocal 9.0 - 10.9 Positive >10.9 A positive result generally indicates past exposure to Mumps virus or previous vaccination. Blood 07/12/2024 9:25 AM CDT 07/12/2024 Narrative [facility] - 07/13/2024 9:10 AM CDT Performed at: [address] [place] [address] [id number] Outdoor Education Teacher: Ellis Ferris PhD, Phone: [phone] Bruno Parekh MD LAB MICROBIOLOGY - GENERAL ORDERABLES Final Result Performing Organization Address [facility] de Phone Number [facility] - * (ABNORMAL) Iron profile w/ IBC (06/28/2024 8:09 AM CDT) [facility] Iron Bind.Cap.(TIBC) 246(L) 250 - 450 ug/dL [facility] - 01 UIBC 194 111 - 343 ug/dL [facility] - 01 Iron 52 38 - 169 ug/dL [facility] - 01 Iron saturation 21 15 - 55 % [facility] - 01 Blood 06/28/2024 8:09 AM CDT 06/28/2024 Narrative [facility] - 06/29/2024 7:09 AM CDT Performed at: [address] [place] [address] [id number] Outdoor Education Teacher: Ellis Ferris PhD, Phone: [phone] Espinoza Salvador MD LAB BLOOD ORDERABLES Final Re sult Performing Organization Address [facility] de Phone Number [facility] - * (ABNORMAL) Hemoglobin and hematocrit (06/28/2024 8:09 AM CDT) Hgb 10.7(L) 13.0 - 17.7 g/dL [facility] - 01 Hct 33.6(L) 37.5 - 51.0 % [facility] - 01 Blood 06/28/2024 8:09 AM CDT 06/28/2024 Narrative [facility] - 06/29/2024 7:09 AM CDT Performed at: [address] [place] [address] [id number] Outdoor Education Teacher: Ellis Ferris PhD, Phone: [phone] Espinoza Salvador MD LAB BLOOD ORDERABLES Final Re sult Performing Organization Address [facility] Phone Number [facility] - * (ABNORMAL) Albumin Creatinine Ratio, Urine (06/28/2024 8:09 AM CDT) Creatinine ur 79.1 Not Estab. mg/dL [facility] - 01 Microalbumin, ur 662.5 Not Estab. ug/mL [facility] - 01 Comment: Results confirmed on dilution. Microalbumin/cr eat ratio 838(H) 0 - 29 mg/g creat [facility] - 01 Comment: Normal: 0 - 29 Moderately increased: 30 - 300 Severely increased: >300 Urine 06/28/2024 8:09 AM CDT 06/28/2024 Narrative [facility] - 06/29/2024 10:36 AM CDT Performed at: [address] [place] [address] [id number] Outdoor Education Teacher: Ellis Ferris PhD, Phone: [phone] Espinoza Salvador MD LAB URINE ORDERABLES Final Re sult Performing Organization Address [facility] de Phone Number [facility] * (ABNORMAL) PTH (06/28/2024 8:09 AM CDT) [facility] PTH Intact 101(H) 15 - 65 pg/mL [facility] - 01 Blood 06/28/2024 8:09 AM CDT 06/28/2024 Narrative [facility] - 06/29/2024 9:10 AM CDT Performed at: [address] [place] [address] [id number] Outdoor Education Teacher: Ellis Ferris PhD, Phone: [phone] Espinoza Salvador MD LAB BLOOD ORDERABLES Final Re sult Performing Organization Address [facility] de Phone Number [facility] - * (ABNORMAL) Basic metabolic panel (06/28/2024 8:09 AM CDT) [facility] Glucose 103(H) 70 - 99 mg/dL [facility] [...] - 06/29/2024 7:09 AM CDT Performed at: [address] [place] [address] [id number] Outdoor Education Teacher: Ellis Ferris PhD, Phone: [phone] Espinoza Salvador MD LAB BLOOD ORDERABLES Final Re sult Performing Organization Address [facility] de Phone Number [facility] - * PSA screen (11/25/2023 8:04 AM CDT) Pathologist [facility] PSA 2.3 0.0 - 4.0 ng/mL [facility] - Comment: Leticia ECLIA methodology. According to the [place] [employer], Serum PSA should decrease and [...] - 11/26/2023 3:09 PM CDT Performed at: [address] [place] [address] [id number] Outdoor Education Teacher: Ellis Ferris PhD, Phone: [phone] Brnuo Parekh MD LAB BLOOD ORDERABLES Final Result Performing Organization Address [facility] de Phone Number [facility] - * Hepatitis C antibody Blood (12/15/2022 8:18 AM CDT) Pathologist [facility] Hep C Ab Non Reactive Non Reactive [facility] - 01 Comment: HCV antibody alone does not differentiate between previously resolved infection and active infection. Equivocal and Reactive HCV antibody results should be followed up with an HCV RNA test to support the diagnosis of active HCV infection. Blood 12/15/2022 8:18 AM CDT 12/15/2022 Narrative [facility] - 12/16/2022 7:10 AM CDT Performed at: - [address], [place], [place] [id number] Outdoor Education Teacher: Ellis Ferris PhD, Phone: [phone] Bruno Parekh MD LAB MICROBIOLOGY - GENERAL ORDERABLES Final Result [facility] - 01 * Colonoscopy (08/25/2019) Anatomical Region Laterality Modality Other Narrative 08/25/2019 Colonoscopy recommended in 5 years Historical Provider MD ENDOSCOPY PROCEDURES Bhavana l Result * CT [...] Arden Lora M.D. CH: CHRISTOS Report ID: [id number] Reading Location: [id number] [EOD] Narrative 08/27/2017 1:49 PM CDT EXAM [...] Electronically signed by Arden Lora M.D. CH: Report ID: [id number] Reading Location: [id number] [EOD] Skyla Thomas FACT CHECKER IMG CT PROCEDURES Final Result from Last 3 Months or Most Recently Relevant to Health Maintenance Insurance MEDICARE [facility] [facility] MEDICARE [employer] [facility] Care Teams Community Health Nursing Director Relationship Specialty Start Date End Date Bruno Parekh MD [address] [place] [address] [place] [id number] PCP - General Internal Medicine 12/16/23 Bruno Parekh MD [address] [place] [address] [place] [id number] Consulting Physician Internal Medicine 12/16/23
--- OUTSIDE RECORDS SUMMARY | 2024-09-13 01:58 | XMS_ITS | Encounter Summary ---
Author Organization [facility] Address [address] [facility] [address] [place] [address] Care Team Providers Care Hand I Cutter Name Role Phone Unavailable Primary Care Provider Unavailabl e Encounter Details Date Type Department Care Team (Late st Contact Info) Description 10/26/2023 Lab Requisition [facility] - DermPath Lab [address] [facility], [place] [phone] Yola Dawson DO [address] [facility] [address] [place] [address] Social History Tobacco Use Types Packs/Day Years [...] Priority Date/Time Associated Diagnosis Comments DERMATOPATHOLOGY Routine 10/26/2023 12:1 3 PM CDT documented in this encounter Results * DERMATOPATHOLOGY (10/26/2023 12:13 PM CDT) Case Report Dermatopathology Report Case: [id number] Authorizing Provider: Yola Dawson DO Collected: 10/26/2023 12:13 PM Ordering Location: [facility] - Received: 10/27/2023 06:47 AM DermPath Lab Pathologist: Yoana Álvarez MD Specimen: Skin, left upper back 4 3:44 PM CDT DERMATOPATHOLOGY LABORATORY Final Diagnosis Specimen A. SKIN, left upper back: EPIDERMOID CYST WITH EVIDENCE OF RUPTURE (L72.0) 4 3:44 PM CDT DERMATOPATHOLOGY LABORATORY at 1544 CDT Clinical History R/O Cyst 4 3:44 PM CDT DERMATOPATHOLOGY LABORATORY Gross Description Specimen A: Received is one formalin filled container labeled with the patient's name and designated left upper back. The specimen consists of a non-oriented ellipse of skin measuring 83y55i59 mm. The epidermal surface is unremarkable. The margin is inked green. The 12 o'clock and 6 o'clock tips are submitted in cassette 1. The remainder of the ellipse is serially sectioned and submitted in cassette 2-4. Jar 0. 4 3:44 PM CDT DERMATOPATHOLOGY LABORATORY Microscopic Description Specimen A. SKIN, left upper back: Within the dermis, there is a space lined by epithelium that resembles normal epidermis and the infundibular portion of the hair follicle. Surrounding this is an infiltrate with neutrophils, histiocytes, and multinucleated giant cells. 4 3:44 PM CDT DERMATOPATHOLOGY LABORATORY Disclaimer An external and internal positive and negative controls are appropriate for the histochemical, immunohistochemical and immunofluorescence stain(s) in this case (if any), except where stated explicitly. The performance characteristics of the stain(s) cited in this report were developed and its performance characteristic determined by the Dermatopathology Laboratory at [facility], directed by Dr. Umair Bui. These tests need not be, and therefore are not, approved by the [place] Food and Drug Administration. The tests are used for clinical purposes. Billing Codes Specimen Charges Stain Charges 17138 1 4 3:44 PM CDT DERMATOPATHOLOGY LABORATORY Embedded Images 4 3:44 PM CDT DERMATOPATHOLOGY LABORATORY Pathology/Cytolo gy TISSUE SPECIMEN FROM SKIN / Unknown 10/26/2023 12:13 PM CDT 10/27/2023 6:47 AM CDT us Yola Dawson DO LAB - PATHOLOGY/CYTOLOGY ORDERABLES Final Result DERMATOPATHOLOGY LABORATORY [facility] - Department of Dermatology [address], [address] [phone] documented in this encounter Visit Diagnoses Not on filedocumented in this encounter
--- OUTSIDE RECORDS SUMMARY | 2024-09-13 01:58 | XMS_ITS | Encounter Summary ---
Author Organization [facility] Address [address] [place] [address] Care Team Providers Care Ornamental Plaster Sticker Name Role Phone Unavailable Primary Care Provider Unavailabl e Encounter Details Date Type Department Care Team (Late st Contact Info) Description 03/22/2020 Lab Requisition [facility] [address], [place] [id number] Yola Dawson DO [address] [facility] [address] [place] [address] Social History Tobacco Use Types Packs/Day Years [...] Priority Date/Time Associated Diagnosis Comments DERMATOPATHOLOGY Routine 03/21/2020 3:33 AM COVER MAT MACHINE OPERATOR documented in this encounter Results * DERMATOPATHOLOGY (03/21/2020 3:33 AM COVER MAT MACHINE OPERATOR) Case Report Dermatopathology Report Case: [id number] Authorizing Provider: Yola Dawson DO Collected: 03/21/2020 03:33 AM Ordering Location: [facility] Received: 03/22/2020 08:10 AM Pathologist: Laureen Delarosa MD Specimens: A) - Skin, mid abdomen B) - Skin, right cheek 3:51 PM COVER MAT MACHINE OPERATOR DERMATOPATHOLOGY LABORATORY Final Diagnosis Specimen A. 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 SKIN, right cheek: HYPERPLASTIC (HYPERTROPHIC) ACTINIC KERATOSIS, PIGMENTED; INFLAMED (L57.0) EPIDERMAL NECROSIS SUGGESTIVE OF EXCORIATION (L98.499) (see microscopic description) 3:[address] [facility] DERMATOPATHOLOGY LABORATORY at 1551 COVER MAT MACHINE OPERATOR Clinical History A: R/O MM. B: Pig AK vs pig NMSC vs MM. 3:[address] [facility] DERMATOPATHOLOGY LABORATORY Gross Description Specimen A: Received is one formalin filled container labeled with the patient's name and designated mid abdomen. The specimen consists of a shave measuring [id number]. Jar 0. Specimen B: Received is one formalin filled container labeled with the patient's name and designated right cheek. The specimen consists of a shave measuring 1x2v4ip. Jar 0. 3:[address] [facility] DERMATOPATHOLOGY LABORATORY Microscopic Description Specimen A. SKIN, mid abdomen: This is a junctional nevus. There is melanin pigment in the stratum corneum. There is architectural disorder characterized by a lentiginous proliferation of melanocytes between irregular nests of cells along the dermal-epidermal junction, highlighted by MART-1/Melan-A immunohistochemical staining. There is underlying fibroplasia of the papillary dermis. (Junctional Deonte's Nevus or Junctional Dysplastic Nevus) Specimen B. SKIN, right cheek: There is hyperkeratosis alternating with parakeratosis. There is epidermal hyperplasia with disorderly maturation of keratinocytes with nuclear pleomorphism confined to the lower half of the epidermis. There is prominent pigmentation in some of the keratinocytes. The number of melanocytes, highlighted by MART-1/Melan-A immunohistochemical staining, is only mildly increased. The lesion is inflamed. The epidermis is focally necrotic and covered with a scale-crust. There is fibrin at the base. 3:[address] [facility] DERMATOPATHOLOGY LABORATORY Disclaimer An external and internal positive and negative controls are appropriate for the histochemical, immunohistochemical and immunofluorescence stain(s) in this case (if any), except where stated explicitly. The performance characteristics of the stain(s) cited in this report were developed and its performance characteristic determined by the Dermatopathology Laboratory at [facility], directed by Dr. Umair Bui. These tests need not be, and therefore are not, approved by the [place] Food and Drug Administration. The tests are used for clinical purposes. Billing Codes Specimen Charges Stain Charges 17305 01863 1 1 24485 43301 1 1 1 3:51 PM COVER MAT MACHINE OPERATOR DERMATOPATHOLOGY LABORATORY Embedded Images 3:51 PM COVER MAT MACHINE OPERATOR DERMATOPATHOLOGY LABORATORY Pathology/Cytology TISSUE SPECIMEN FROM SKIN / Unknown 03/21/2020 3:33 AM COVER MAT MACHINE OPERATOR 03/22/2020 8:10 AM COVER MAT MACHINE OPERATOR Miscellaneous samples (specimen) TISSUE SPECIMEN FROM SKIN / Unknown 03/21/2020 3:33 AM COVER MAT MACHINE OPERATOR 03/22/2020 8:10 AM COVER MAT MACHINE OPERATOR us Yola Dawson DO LAB - PATHOLOGY/CYTOLOGY ORDERABLES Final Result DERMATOPATHOLOGY LABORATORY [facility] - Department of Dermatology [facility] [address] [place] [address], [address] [phone] documented in this encounter Visit Diagnoses Not on filedocumented in this encounter
--- OUTSIDE RECORDS SUMMARY | 2024-09-13 01:58 | XMS_ITS | Clinical Summary ---
Author Organization [facility] Address [address] [place] [address] Care Team Providers Care Senior Web Architect Name Role Phone Unavailable Primary Care Provider Unavailabl e Source Comments [facility] [employer],non-owned Affiliates and Associated Physician Practices is amultiple site organization consisting of ambulatory clinics and hospital sitesin [place], [place], [place] and [place]. This disclosure is being madepursuant to the Care Everywhere program and may not contain all information available regarding this patient. Last updated 17.[facility] [employer] Social History Tobacco Use Types Packs/Day Years Used Date Smoking Tobacco: Never Assessed Sex and Gender Information Value Date Recorded Sex Assigned at Not on file Legal Sex Male 10:09 AM CDT Gender Identity Not on file Sexual Orientation Not on file Plan of Treatment Health Maintenance Due Date Last Done Comments COLOGUARD (AGES 45-75) - COL ON CA SCREENING 1952 COLON MONITORING 1952 COLONOSCOPY - COLON CA SCREENING 1952 CT COLONOGRAPHY - COLON CA SCREENING 1952 Colorectal Cancer Screening 1952 FIT - COLON CA SCREENING 1952 FLEX SIG - COLON CA SCREENING 1952 LIPID TESTING 1952 MEDICARE AWV 12 MONTHS 1952 HEPATITIS C SCREENING 03/28/1970 DTAP/TDAP/TD VACCINES (1 - Tdap) 1971 PNEUMOCOCCAL VACCINE 50+ (1 of 1 - PCV) 2002 ZOSTER VACCINE (1 of 2) 2002 COVID-19 VACCINE ( - 2023-2 5 season) 2023 DEPRESSION SCREENING 02/17/2024 INFLUENZA VACCINE (#1) 2024 Respiratory Syncytial Virus (RSV) Vaccine Pt: or over 60 yrs (1 - 1-dose 75+ series) 2027 HEPATITIS B VACCINE Aged Out No longe r eligible based on patient's age to complete this topic HIB VACCINE Aged Out No longer eligi ble based on patient's age to complete this topic HPV VACCINE Aged Out No longer eligi ble based on patient's age to complete this topic MENINGOCOCCAL (Group B) VACC INE SHARED DECISION-MAKING Aged Out No longer eligibl e based on patient's age to complete this topic MENINGOCOCCAL GROUPS A/C/Y/W VACCINE Aged Out No longer eligible b ased on patient's age to complete this topic Insurance [facility] MEDICARE MEDICARE [facility]
--- OUTSIDE RECORDS SUMMARY | 2024-09-13 01:58 | XMS_ITS | Encounter Summary ---
Author Organization [facility] Care Team Providers Care Editorial Cartoonist Name Role Phone Bruno Parekh MD Primary Care Provider [phone] Jesenia Melgar LPN Unavailable + Espinoza Salvador MD Primary Care Provider [phone] Espinoza Salvador MD Primary Care Provider [phone] Bruno Parekh MD Primary Care Provider [phone] Espinoza Salvador MD Primary Care Provider [phone] Espinoza Salvador MD Primary Care Provider [phone] Bruno Parekh MD Primary Care Provider [phone] Espinoza Salvador MD Primary Care Provider [phone] Bruno Parekh MD Primary Care Provider [phone] Espinoza Salvador MD Primary Care Provider [phone] Bruno Parekh MD Primary Care Provider [phone] Bruno Parekh MD Primary Care Provider [phone] Bruno Parekh MD Unavailable [phone] Encounter Details Date Type Department Care Team (Latest Contact Info) Description 11/28/2015 Orders Only [facility] ProviderBriseida MD [address] [place] [address] Social History Tobacco Use Types Packs/Day Years Used Date Smoking Tobacco: Never Assessed Sex and Gender Information Value Date Recorded Sex Assigned at Not on file Legal Sex Male 8:43 PM CHEF Gender Identity Male 06/21/2019 12:38 PM CDT Sexual Orientation Straight 06/21/2019 12 :38 PM CDT documented as of this encounter Plan of Treatment Not on file documented as of this encounter Procedures Procedure Name Priority Date/Time Associated Diagnosis Comments SCAN - LABS 12/03/2015 12:00 AM CDT documented in this encounter Results * SCAN - LABS (12/03/2015 12:00 AM CDT) Narrative 12/03/2015 12:00 AM CDT Ordered by an unspecified provider. Historical Provider Final Res ult documented in this encounter Visit Diagnoses Not on filedocumented in this encounter Care Teams Editorial Cartoonist Relationship Specialty Start Date End Date Bruno Parekh MD [address] [address] [place] [address] PCP - General Internal Medicine 06/02/18 01/02/19 Espinoza Salvador MD [address] [place] [address] [address] [place] [address] PCP - General 01/15/19 01/24/19 Espinoza Salvador MD [address] [place] [address] [address] [place] [address] PCP - General 01/03/19 01/14/19 Bruno Parekh MD [address] [facility] [address] [place] [address] PCP - General Internal Medicine 01/25/19 02/13/19 Espinoza Salvador MD [address] [place] [address] Dr [address] [place] [address] PCP - General 02/28/19 03/23/19 Espinoza Salvador MD [address] [place] [address] Dr Abrams [address] [place] [address] PCP - General 02/14/19 02/27/19 Bruno Parekh MD [address] [facility] [place] [address] PCP - General Internal Medicine 03/24/19 04/26/19 Espinoza Salvador MD [address] [place] [address] Dr Abrams [address] [place] [address] PCP - General 04/27/19 09/13/19 Bruno Parekh MD [address] [place] [address] DR ABRAMS [address] [place] [address] PCP - General Internal Medicine 09/14/19 09/18/19 Espinoza Salvador MD [address] [place] [address] Dr Abrams [address] [place] [address] PCP - General 09/19/19 02/19/20 Bruno Parekh MD [facility] [facility] [place] [address] PCP - General Internal Medicine 02/20/20 12/15/23 Bruno Parekh MD [address] [facility] [place] [address] PCP - General Internal Medicine 12/16/23 Jesenia Melgar LPN [address] [place] [address] [address] [place] [address] Insurance Loss Control Surveyor 06/21/18 06/21/18 Bruno Parekh MD [address] [facility] [address] [place] [address] Consulting Physician Internal Medicine 12/16/23 documented as of this encounter
[2024-09-13 06:49] VITALS: BP 81/43; PULSE 83; RESP 18; TEMP 36.6; O2SAT 96; BMI 24.4
--- NOTE | 2024-09-13 06:50 | SUR.PREOP ---
Dr. Vega and ZURI Bautista notified of patients BP on arrival to pre op. Pt BP reading 80's/40's, complaints of lightheadedness. Received okay to keep IVF wide open. Patient received 1L while in pre op area. ZURI Bautista aware.
[2024-09-13] MEDS: LACTATED RINGERS 1,000 ML 150 ML IV CONT ×3 (06:56→08:08)
--- NOTE | 2024-09-13 07:19 | WPDANESEPPF ---
Anes - Initial Pre Proc Eval Procedure: Operation Date: 09/13/24 08:00 Proposed Procedures p Screening Colonoscopy - Allen Arrington MD Date/Time: 09/13/24 07:19 Surgeon: Allen Arrington MD Pre Op Diagnosis: neoplasm screening Patient Data Age: 74 Gender: M Height: 1.83 m Weight: 81.8 kg Last Vital Signs Temp 36.6 C 09/13/24 06:49 Pulse 83 09/13/24 06:49 Resp 18 09/13/24 06:49 BP 81/43 L 09/13/24 06:49 Pulse Ox 96 09/13/24 06:49 O2 Del Method Room Air 09/13/24 06:49 Allergies Allergy/AdvReac Type Severity Reaction Status Date / Time No Known Allergies Allergy Verified 09/13/24 06:45 Home Medications ?Medication ?Instructions ?Recorded ?Confirmed ?Type amlodipine 5 mg tablet 5 mg PO DAILY 08/16/19 08/29/24 History ascorbate calcium (vitamin C) 500 500 mg PO DAILY 08/16/19 09/13/24 History mg tablet aspirin 81 mg chewable tablet 81 mg PO DAILY 08/16/19 09/13/24 History atorvastatin 80 mg tablet 80 mg PO DAILY 08/16/19 08/29/24 History carvedilol 12.5 mg tablet 12.5 mg PO BID 08/16/19 09/13/24 History clopidogrel 75 mg tablet 75 mg PO DAILY 08/16/19 09/13/24 History furosemide 20 mg tablet 20 mg PO DAILY PRN edema 08/16/19 08/29/24 History losartan 25 mg tablet 25 mg PO DAILY 08/16/19 08/29/24 History multivitamin-ferrous 1 tablet PO DAILY 08/16/19 09/13/24 History fumarate-folic acid 18 mg-400 mcg tablet (Centrum Complete) empagliflozin 10 mg tablet 10 mg PO DAILY 08/29/24 09/13/24 History (Jardiance) ezetimibe 10 mg tablet 10 mg PO DAILY 08/29/24 09/13/24 History ferrous sulfate 325 mg (65 mg 325 mg PO DAILY 08/29/24 09/13/24 History iron) tablet (Elizabeth-Time) rosuvastatin 40 mg tablet 20 mg PO DAILY 08/29/24 09/13/24 History sacubitril 24 mg-valsartan 26 mg 1 tablet PO BID 08/29/24 09/13/24 History tablet (Entresto) sodium bicarbonate 650 mg tablet 650 mg PO TID 08/29/24 09/13/24 History hydralazine 25 mg tablet 25 mg PO QPM 09/13/24 09/13/24 History Patient hx anesthesia problems: none Family hx anesthesia problems: none Results Review: All pre-operative results and documents have been reviewed as part of the pre-operative evaluation. [facility] Past Medical History Medical History GERD (gastroesophageal reflux disease) Congestive heart failure (CHF) Hypertension Hyperlipidemia Arteriosclerotic heart disease (ASHD) Social History Social History Smoking status: Former smoker Tobacco type: cigarettes Substance use type: does not use Living arrangements: with family Spiritual care concerns: No Anes - Eval Final PreProcedure Day of Procedure 09/13/24 07:19 Patient weight: normal Heart: regular rate and rhythm Lungs: clear to auscultation Airway: Mallampati scale class II Neurological: alert and oriented Last oral intake: >/= 8 hours ASA classification: III Emergent: no Anesthetic plan: proceed Anesthesia type and monitoring: general GIVS and standard monitoring Results Review: All pre-operative results and documents have been reviewed as part of the pre-operative evaluation. Informed Consent: The patient's anesthetic plan and its attendant risks and benefits were discussed with the patient/family/POA. Questions were solicited and answers provided to the satisfaction of the patient/family/POA.
--- NOTE | 2024-09-13 07:56 | PM.HPGS ---
History of Present Illness History of Present Illness Consent: Risks, benefits, and alternatives have been discussed and questions answered. Patient agrees to proceed with procedure. Chief complaint: neoplasm screening Narrative: Jose Angel Suazo is a 74 year old male with last colonoscopy 2019, father had colon cancer. Review of Systems Review of Systems: All systems reviewed & are unremarkable except as noted in HPI and below PMFSH Past Medical History Medical History GERD (gastroesophageal reflux disease) Congestive heart failure (CHF) Hypertension Hyperlipidemia Arteriosclerotic heart disease (ASHD) Social History Social History Smoking status: Former smoker Tobacco type: cigarettes Substance use type: does not use Living arrangements: with family Spiritual care concerns: No Meds Home Medications and Allergies Home Medications ?Medication ?Instructions ?Recorded ?Confirmed ?Type amlodipine 5 mg tablet 5 mg PO DAILY 08/16/19 08/29/24 History ascorbate calcium (vitamin C) 500 500 mg PO DAILY 08/16/19 09/13/24 History mg tablet aspirin 81 mg chewable tablet 81 mg PO DAILY 08/16/19 09/13/24 History atorvastatin 80 mg tablet 80 mg PO DAILY 08/16/19 08/29/24 History carvedilol 12.5 mg tablet 12.5 mg PO BID 08/16/19 09/13/24 History clopidogrel 75 mg tablet 75 mg PO DAILY 08/16/19 09/13/24 History furosemide 20 mg tablet 20 mg PO DAILY PRN edema 08/16/19 08/29/24 History losartan 25 mg tablet 25 mg PO DAILY 08/16/19 08/29/24 History multivitamin-ferrous 1 tablet PO DAILY 08/16/19 09/13/24 History fumarate-folic acid 18 mg-400 mcg tablet (Centrum Complete) empagliflozin 10 mg tablet 10 mg PO DAILY 08/29/24 09/13/24 History (Jardiance) ezetimibe 10 mg tablet 10 mg PO DAILY 08/29/24 09/13/24 History ferrous sulfate 325 mg (65 mg 325 mg PO DAILY 08/29/24 09/13/24 History iron) tablet (Elizabeth-Time) rosuvastatin 40 mg tablet 20 mg PO DAILY 08/29/24 09/13/24 History sacubitril 24 mg-valsartan 26 mg 1 tablet PO BID 08/29/24 09/13/24 History tablet (Entresto) sodium bicarbonate 650 mg tablet 650 mg PO TID 08/29/24 09/13/24 History hydralazine 25 mg tablet 25 mg PO QPM 09/13/24 09/13/24 History Allergies Allergy/AdvReac Type Severity Reaction Status Date / Time No Known Allergies Allergy Verified 09/13/24 06:45 Vital Signs Vital Signs - 24 hr 09/13/24 06:49 Temperature 98 F Pulse Rate 83 Respiratory Rate 18 Blood Pressure 81/43 L Pulse Oximetry 96 Oxygen Delivery Room Air Exam Const: General: comfortable and no acute distress HENMT: Face/Nose/Sinus: Normal nares present Eyes: General: appearance normal, both eyes and all related structures Neck: Neck: no JVD Resp: Auscultation: clear to auscultation bilaterally Cardio: Rate: regular rate Rhythm: regular rhythm GI: Inspection: non-distended GI Palp: Yes Soft to palpation Skin: General skin exam: normal color Neuro: General: gait normal Speech: normal speech Extrem: General: normal to inspection Psych: Mental Status: mental status grossly normal Assessment and Plan Assessment and plan (1) Family history of colon cancer in father: Code(s): Z80.0 - Family history of malignant neoplasm of digestive organs Status: Acute Assessment and Plan: colonoscopy
[2024-09-13 08:11] VITALS: BP 100/46; PULSE 69; RESP 16; O2SAT 95
[2024-09-13 08:21] VITALS: BP 91/49; PULSE 73; RESP 19; O2SAT 96
[2024-09-13 08:31] VITALS: BP 96/55; PULSE 70; RESP 20; O2SAT 97
== END 2024-09-13 08:45 | disposition home or self-care (01) ==
PROVIDERS: PCP Internal Medicine; Visit Provider Internal Medicine Gastroenterology
PROC: 0DJD8ZZ Inspection of Lower Intestinal Tract, Via Natural or Artificial Opening Endoscopic (ICD-10-PCS; CPT 45378; principal; 2024-09-13 08:00)
DX: Z12.11 Encounter for screening for malignant neoplasm of colon (principal); K64.8 Other hemorrhoids; K57.30 Diverticulosis of large intestine without perforation or abscess without bleeding; E78.5 Hyperlipidemia, unspecified; I25.10 Atherosclerotic heart disease of native coronary artery without angina pectoris; K21.9 Gastro-esophageal reflux disease without esophagitis; I11.0 Hypertensive heart disease with heart failure; I50.9 Heart failure, unspecified; Z79.82 Long term (current) use of aspirin; Z79.02 Long term (current) use of antithrombotics/antiplatelets; Z79.84 Long term (current) use of oral hypoglycemic drugs; Z87.891 Personal history of nicotine dependence; Z80.0 Family history of malignant neoplasm of digestive organs
CPT/HCPCS: G0105; J2003; J2704; J7120